=== PATIENT | female | born 1935 | race Caucasian/White ===

== ENCOUNTER 2016-03-25 19:05 | Inpatient (IN) | payer OTHER ==
[~2016-03-25] VITALS: Ht 165.1 cm; Wt 81.3 kg
--- NOTE | ~2016-03-25 | PR ---
[place], [place] PROGRESS NOTE NAME: [facility] #: [id number] UNIT #: [id number] ROOM: 521 DOCTOR: SOUMYA FLORENCE MD BIRTHDATE: [birth year] DOS: SUBJECTIVE: The patient is doing fine without any complaints and patch, she says did not work a whole lot. OBJECTIVE: VITAL SIGNS: Blood pressure is 160/56, pulse of 54, respirations 20, temperature 98.1. LUNGS: Diminished breath sounds. No wheezes, rales or rhonchi heard. HEART: Regular. ABDOMEN: Soft. EXTREMITIES: Without any edema. ASSESSMENT AND PLAN: 1. Encephalopathy, metabolic, possibly from underlying UTI. 2. UTI with 50,000 colonies of E. coli, on cephalosporins. 3. Failure to thrive, adult. The patient to be placed to [facility] for PT/OT. SOUMYA FLORENCE MD CM:PNTRANS 0 47 SOUMYA FLORENCE MD 03/30/161946 interface
--- NOTE | ~2016-03-25 | PR ---
[place], [place] PROGRESS NOTE NAME: SARAH PETERS [facility] #: [id number] UNIT #: [id number] ROOM: 521 DOCTOR: CARMELO JAMES MD BIRTHDATE: [birth year] DOS: 03/27/2016 Patient with urinary tract infection and cystitis growing 50,000 colonies of gram-negative bacilli. Final culture results are still pending. Adult failure to thrive. The patient going for [facility] facility. She changed her mind. She does not want to go to assisted living facility anymore, but she was saying yesterday. The patient with acute over chronic kidney disease with elevation of creatinine. I will keep her on hydration with normal saline and follow her BUN and creatinine. Fall at home and possible syncope. The patient does not remember what happened. The patient has been kept on a residential glazier. Sinus bradycardia without any obvious hypotension. The patient is being monitored. The patient's metoprolol has been stopped and her heart rate still remains between 50 and 60 beats per minute. Mixed hyperlipidemia, being treated with Lipitor. History of paroxysmal atrial fibrillation. The patient remains on digoxin. CARMELO JAMES MD CM:PNTRANS [id number] CARMELO JAMES MD 03/28/16 0731 interface
--- NOTE | ~2016-03-25 | PR ---
[place], [place] PROGRESS NOTE NAME: SARAH PETERS [facility] #: [id number] UNIT #: [id number] ROOM: 521 DOCTOR: SOUMYA FLORENCE MD BIRTHDATE: [birth year] DOS: 03/29/2016 SUBJECTIVE: The patient is doing fine without any complaints. Unfortunately, no precertification has been obtained. OBJECTIVE: VITAL SIGNS: Graphic trend shows that she is afebrile. Blood pressure is 156/51, pulse of 53, respirations 20, and temperature 97.5. LUNGS: Clear. HEART: Regular. ABDOMEN: Soft. EXTREMITIES: Without any edema. ASSESSMENT AND PLAN: 1. Urinary tract infection with 50,000 colonies of Escherichia coli. 2. Metabolic encephalopathy, combination, most likely urinary tract infection related, which is resolved. 3. Adult failure to thrive, awaiting placement to [facility]. SOUMYA FLORENCE MD CM:PNTRANS [phone] SOUMYA FLORENCE MD 03/29/16 2146 interface
--- NOTE | ~2016-03-25 | EKG ---
[place], [place] ELECTROCARDIOGRAM REPORT NAME: SARAH PETERS UNIT #: [id number] ROOM: 521 DOCTOR: CARMELO JAMES MD BIRTHDATE: [birth year] DOS: 03/25/2016 TIME: 21 hours and 29 minutes. EKG shows sinus bradycardia with a heart rate of 53 beats per minute. Normal cardiac axis. Some nonspecific ST-T abnormality, needs clinically correlated. CARMELO JAMES MD CM:EKGRPT:ELECTROCARDIOGRAM REPORT [phone] CARMELO JAMES MD
--- NOTE | ~2016-03-25 | PR ---
[place], [place] PROGRESS NOTE NAME: SARAH PETERS [facility] #: [id number] UNIT #: [id number] ROOM: 521 DOCTOR: SOUMYA FLORENCE MD BIRTHDATE: [birth year] DOS: 03/28/2016 SUBJECTIVE: The patient is doing fine without any complaints this morning. OBJECTIVE: VITAL SIGNS: Graphic trend shows a blood pressure 160/60, pulse of 54, respirations 18, temperature 97.7. LUNGS: Diminished breath sounds, clear. HEART: Regular. ABDOMEN: Obese, soft, nontender. EXTREMITIES: Without any edema. ASSESSMENT AND PLAN: 1. Metabolic encephalopathy, possibly from underlying urinary tract infection, 50,000 gram-negative was noted. No identification is available. Cipro will be added p.o. 2. Fall at home. She was lodged between the dresser and the bed and was unable to get up and apparently slightly confused at the time, she is not exactly sure how she got there, but she has underlying failure to thrive and is going to [facility] when precertification is obtained. 3. Chronic atrial fibrillation with heart rate being on the low side. She is on digoxin. Could add a low dose of beta-blockers, but she is already bradycardic. 4. Benign hypertension. Avoid beta-blockers, again, because of bradycardia, will consider low dose lisinopril, which should help with renal protection also. 5. Diabetes mellitus, controlled. 6. Acute kidney injury, possibly from the urinary tract infection, IV fluids was given, I will discontinue it, and routine labs will be ordered for tomorrow. SOUMYA FLORENCE MD CM:PNTRANS [phone] SOUMYA FLORENCE MD 05/04/16 1433 interface
--- NOTE | ~2016-03-25 | DS ---
[place], [place] DISCHARGE SUMMARY NAME: SARAH PETERS [facility] #: [id number] UNIT #: [id number] ROOM: 521 DOCTOR: SOUMYA FLORENCE MD BIRTHDATE: [birth year] DOS: 03/30/2016 The patient was admitted to the hospital on the the discharge on the to [facility]. HOSPITAL COURSE: This patient is [id number], please refer the H and P dictated by Dr. Caro for further details. She was found wedged between the bed and the dresser was brought in with confusion after admission, she was found to have acute kidney injury. The metformin was discontinued. Pressures are fairly under control. She was also found to be quite bradycardic digoxin and metoprolol were discontinued. She does have history of approximately Afib, but did not have any evidence of rapid ventricular response during this admission. A urine culture was done showed 50,000 colonies of E. coli for which she is sensitive to cephalosporins. Blood cultures showed no bacterial growth. PT/OT was consulted as well as social service for placement and the patient would be a good candidate for placement to [facility] for physical therapy, so the plan today is to discharge her. Her kidney functions have improved slightly. Her GFR was 30 when she arrived and it has come up to 41 at the time of discharge. Most of her home medications have been continued here. The patient has not received the precertification from the insurance company yet and I am hoping to have her today and she can go to [facility] today. DISCHARGE MEDICATIONS: Will be ADA diet 1800, blood sugars daily, losartan 25 daily, lidocaine patch for local application daily, Protonix 40 daily, glyburide 5 b.i.d., atorvastatin 80 daily, levothyroxine 25 mcg daily, Isordil 30 daily, DuoNeb q. 6 hours p.r.n., insulin Lantus 35 units at bedtime, Eliquis 5 b.i.d., [place] 7.5 twice a day p.r.n. The digoxin, metformin, and metoprolol were discontinued. SOUMYA FLORENCE MD CM:DISCHARG [id number] SOUMYA FLORENCE MD 03/30/16 1354 interface
--- NOTE | ~2016-03-25 | WRIGHTHP ---
[place], [place] PATIENT HISTORY AND PHYSICAL EXAM NAME: SARAH PETERS [facility] #: [id number] UNIT #: [id number] ROOM: 521 DOCTOR: CARMELO JAMES MD BIRTHDATE: [birth year] DOS: 03/26/2016 HISTORY OF PRESENT ILLNESS: A 80-year-old female that presented to the Emergency Department wedged between the bed and the dresser and she does not remember how she fell, not sure if she had lost consciousness. The patient lives by herself. The patient says that she was affected by 2 deaths in the family, and one of the deaths was her son. The patient thinks she cannot live by herself safely at home. The patient was evaluated in the Emergency Department, there were no obvious fractures and she was found to have acute kidney injury, encephalopathy, multiple contusions and possible syncope and she was recommended for admission and further management. After admission, she looks alert, comfortable and in no visible distress, no shortness of breath, no chest pain, no GI or urinary symptoms. REVIEW OF SYSTEMS: LUNGS: No shortness of breath or wheezing. GASTROINTESTINAL: No nausea, vomiting, diarrhea, constipation. CARDIOVASCULAR: No chest pain, no palpitations. SOCIAL HISTORY: The patient lives by herself. Denies smoking cigarettes, alcohol and drug abuse. FAMILY HISTORY: Noncontributory. HOME MEDICATIONS: Lipitor, digoxin, Imdur, Protonix, metformin, levothyroxine, glyburide, apixaban, metoprolol, DuoNebs, Vicodin. ALLERGIES: No known drug allergies. PHYSICAL EXAMINATION: GENERAL: Alert and oriented x 3, in no visible distress. Generalized weakness. VITAL SIGNS: Blood pressure 151/44, heart rate of 60 beats per minute, breathing 18 times per minute, temperature 98.2 degrees Fahrenheit. HEENT AND NECK: Extraocular movements are intact. Sclerae are anicteric. Oral mucosa is moist and clean. No obvious facial weakness. Neck is supple without any lymphadenopathy. No thyromegaly. No JVD. No carotid arterial bruits. LUNGS: Clear to auscultation. No wheezing. No rhonchi. CARDIOVASCULAR SYSTEM: Heart rate is regular in rate and rhythm. S1 and S2 normally audible. No significant murmur or any other abnormal cardiac sounds. ABDOMEN: Soft, nontender. No obvious organomegaly. Bowel sounds are present. No obvious herniation. EXTREMITIES: Without significant cyanosis or edema. Warm to touch. CENTRAL NERVOUS SYSTEM: Alert and oriented x 3. Cranial nerves II-XII are intact. Speech is normal. The patient is able to move all extremities. Normal muscle strength. Deep tendon reflexes are equal on both sides. Plantars were downgoing. IMPRESSION: 1. The patient living by herself, old age with adult failure to thrive. We will try to get her to an assisted living facility. [place], [place] PATIENT HISTORY AND PHYSICAL EXAM [facility]: [facility] [id number] UN[facility] #: [id number] ROOM: 521 DOCTOR: CARMELO JAMES MD BIRTHDATE: [birth year] 2. Elevation of creatinine to 1.7 as compared to in the past, the creatinine was at 1.2 in 2011. The patient with acute over chronic kidney disease. 3. Fall at home, possible syncope. The patient does not remember what happened. The patient is being monitored on a parts identification technician and does have sinus bradycardia. No chest pain, no shortness of breath. No GI or urinary symptoms. 4. Sinus bradycardia without any obvious hypotension, I will adjust her treatment. The patient had heart rate as low as 38 beats per minute on the parts identification technician. I will stop her metoprolol and continue digoxin for paroxysmal atrial fibrillation. 5. The patient has history of paroxysmal atrial fibrillation, presently in sinus rhythm. We will continue digoxin. 4. Type 2 diabetes mellitus. Monitor blood sugars. Continue glyburide and Levemir insulin. 5. Mixed hyperlipidemia, treated with Lipitor, which is being continued. 6. Renal insufficiency. I will stop her metformin because of the increased risk of lactic acidosis. CARMELO JAMES MD CM:HISPHYS:PATIENT HISTORY AND PHYSICAL EXAMINATION 58 [phone] CARMELO JAMES MD 03/26/161942 interface
[~2016-03-25 19:05] MED LIST: ASPIRIN ADULT L81 M1 PO; ASPIRIN CHILDRE81 MG PO; BACTRIM DS 8001 TA1 PO; CEFUROXIME AXE250 MG PO; CIPRO250 MG PO; CIPROFLOXACIN500 MG PO; COUMADIN5 MG PO; COUMADIN7.5 M1 PO; DIABETA5 MG PO; DUONEB 3 MG/3 ML3 M1 INH; ELIQUIS5 M1 PO; FEOSOL300 MG PO; FLEXERIL10 MG PO; FLOMAX0.4 MG PO; GLUCOPHAGE1000 MG PO; GLUCOPHAGE500 MG PO; GLYBURIDE2.5 MG PO; HYDROCODONE BIT1 T11 PO; ISOSORBIDE DINI30 MG PO; LANOXIN0.125 MG PO; LANTUS100 U/ML SC; LANTUS100 U/ML SQ; LIPITOR10 MG PO; LIPITOR20 MG PO; LIPITOR80 MG PO; LOPRESSOR25 MG PO; MACROBID100 M1 PO; METFORMIN500 MG PO; METOPROLOL SR25 MG PO; MOTRIN600 MG PO; NEBULIZER; NORCO 325 MG-51 TAB PO; NORCO 5-325 TA1 EACH PO; NORCO 7.5-3251 EACH PO; PERCOCET 325 MG1 TA2 PO; PROTONIX40 MG PO; PYRIDIUM200 MG PO; SYNTHROID0.05 MG PO; SYNTHROID25 MCG PO; Synthroid,Levo25 MCG PO; VOLTAREN TP; ZOFRAN ODT4 MG SL
[2016-03-25 19:17] VITALS: BP 149/65
[2016-03-25 21:26] LABS: BASO % 0.1 % (0.0-1.0); EOS # 0.1 10*3/uL (0.0-0.4); EOS % 1.1 % (1.0-4.0); HEMATOCRIT 29.7 % (37.0-47.0); HEMOGLOBIN 9.3 g/dl (12.0-16.0); LYMPH # 2.5 10*3/uL (1.3-4.4); LYMPH % 31.3 % (27.0-41.0); MEAN CELL VOLUME 97.1 fl (81.0-99.0); MEAN CORPUSCULAR HGB 30.4 pg (27.0-31.0); MEAN CORPUSCULAR HGB CONC 31.3 g/dl (33.0-37.0); MEAN PLATELET VOLUME 11.6 fl (9.6-12.3); MONO # 0.4 10*3/uL (0.1-1.0); MONO % 4.7 % (3.0-9.0); NEUT # 4.9 10*3/uL (2.3-7.9); NEUT % 62.5 % (47.0-73.0); PLATELET COUNT AUTOMATED 229 10*3/uL (130-400); RED BLOOD COUNT 3.06 10*6/uL (4.10-5.10); RED CELL DISTRI WIDTH 14.3 % (0-14.5); WHITE BLOOD COUNT 7.9 10*3/uL (4.8-10.8)
[2016-03-25 21:42] LABS: ALBUMIN 3.5 gm/dl (3.1-4.5); BILIRUBIN, TOTAL 0.3 mg/dl (0.2-1.0); POTASSIUM 4.4 mmol/L (3.5-5.1); TOTAL PROTEIN 8.1 gm/dL (6.4-8.2)
[2016-03-25 21:44] LABS: CKMB 2.6 ng/ml (0.5-3.6)
[2016-03-25 22:05] LABS: BILIRUBIN NEGATIVE (NEGATIVE); BLOOD TRACE-INTACT (NEGATIVE); CLARITY SL CLOUDY (CLEAR); COLOR YELLOW (YELLOW); GLUCOSE NEGATIVE (NEGATIVE); KETONE NEGATIVE (NEGATIVE); LEUKO ESTERASE TRACE (NEGATIVE); NITRITE NEGATIVE (NEGATIVE); PROTEIN 1+ (NEGATIVE); SPECIFIC GRAVITY 1.025 (1.005-1.030); UROBILINOGEN 0.2 E.U./dl (0.2-1.0)
[2016-03-25 22:12] LABS: BACTERIA 4+; WBC 16-20 wbc/hpf (0-5)
[2016-03-25 22:13] LABS: MUCOUS TRACE; URINE REFLEX COMMENT YES (NO)
[2016-03-25 22:55] VITALS: BP 143/48
[2016-03-26] VITALS: BP 156/47
[2016-03-26 06:24] LABS: POTASSIUM 4.1 mmol/L (3.5-5.1)
[2016-03-26 08:00] VITALS: BP 156/56
[2016-03-26 12:00] VITALS: BP 145/76
[2016-03-26 16:00] VITALS: BP 151/44
[2016-03-26 20:00] VITALS: BP 154/42
[2016-03-27] VITALS: BP 159/42
[2016-03-27 08:00] VITALS: BP 158/66
[2016-03-27 12:00] VITALS: BP 146/76
[2016-03-27 16:00] VITALS: BP 173/44
[2016-03-27 20:00] VITALS: BP 172/49
[2016-03-28] VITALS: BP 160/60
[2016-03-28 08:00] VITALS: BP 164/62
[2016-03-28 12:00] VITALS: BP 140/70
[2016-03-28 16:00] VITALS: BP 157/61
[2016-03-28 20:00] VITALS: BP 121/61
[2016-03-29] VITALS: BP 156/51
[2016-03-29 08:00] VITALS: BP 150/50
[2016-03-29 09:18] LABS: BASO % 0.2 % (0.0-1.0); EOS # 0.2 10*3/uL (0.0-0.4); EOS % 3.2 % (1.0-4.0); HEMATOCRIT 26.6 % (37.0-47.0); HEMOGLOBIN 8.2 g/dl (12.0-16.0); LYMPH # 2.2 10*3/uL (1.3-4.4); LYMPH % 35.4 % (27.0-41.0); MEAN CELL VOLUME 97.1 fl (81.0-99.0); MEAN CORPUSCULAR HGB 29.9 pg (27.0-31.0); MEAN CORPUSCULAR HGB CONC 30.8 g/dl (33.0-37.0); MEAN PLATELET VOLUME 11.9 fl (9.6-12.3); MONO # 0.3 10*3/uL (0.1-1.0); MONO % 5.2 % (3.0-9.0); NEUT # 3.5 10*3/uL (2.3-7.9); NEUT % 55.7 % (47.0-73.0); PLATELET COUNT AUTOMATED 213 10*3/uL (130-400); RED BLOOD COUNT 2.74 10*6/uL (4.10-5.10); RED CELL DISTRI WIDTH 14.4 % (0-14.5); WHITE BLOOD COUNT 6.2 10*3/uL (4.8-10.8)
[2016-03-29 09:25] LABS: POTASSIUM 4.5 mmol/L (3.5-5.1)
[2016-03-29 12:00] VITALS: BP 166/89
[2016-03-29 16:00] VITALS: BP 165/62
[2016-03-29 20:00] VITALS: BP 160/68
[2016-03-30] VITALS: BP 160/56
[2016-03-30] MEDS ORDERED: LOSARTAN POTASS25 M1 PO (07:22)
[2016-03-30] MEDS ORDERED: NORCO 7.5-3251 EACH PO (07:22)
[2016-03-30] MEDS ORDERED: LIDODERM 5% PATC1 EA T (07:22)
[2016-03-30 08:00] VITALS: BP 170/66
[2016-03-30 12:00] VITALS: BP 150/86
[2016-03-30 16:00] VITALS: BP 149/56
[2016-03-30 20:00] VITALS: BP 155/62
[2016-03-31] VITALS: BP 160/62
[2016-03-31 08:00] VITALS: BP 156/60
[2016-03-31 12:00] VITALS: BP 146/61
[2016-03-31 16:00] VITALS: BP 146/69
[2016-05-18] MEDS ORDERED: ATIVAN0.5 MG PO (22:22)
== END 2016-03-31 18:40 | disposition other institution (70) | DRG 682 ==
LOC: ED 19:05 → 5E 22:24 → EDHOLD 22:24 → 5E 23:25
PROVIDERS: Internal Medicine; Nurse Practitioner Family
DX: N17.0 Acute kidney failure with tubular necrosis (principal); G93.41 Metabolic encephalopathy; E11.22 Type 2 diabetes mellitus with diabetic chronic kidney disease; R00.1 Bradycardia, unspecified; I48.0 Paroxysmal atrial fibrillation; T50.995A Adverse effect of other drugs, medicaments and biological substances, initial encounter; R62.7 Adult failure to thrive; N18.9 Chronic kidney disease, unspecified; E78.2 Mixed hyperlipidemia; B96.20 Unspecified Escherichia coli [E. coli] as the cause of diseases classified elsewhere; J44.9 Chronic obstructive pulmonary disease, unspecified; E03.9 Hypothyroidism, unspecified; N30.90 Cystitis, unspecified without hematuria; I48.2 Chronic atrial fibrillation; I12.9 Hypertensive chronic kidney disease with stage 1 through stage 4 chronic kidney disease, or unspecified chronic kidney disease; Z96.1 Presence of intraocular lens; Z79.899 Other long term (current) drug therapy; Z79.84 Long term (current) use of oral hypoglycemic drugs; Z87.440 Personal history of urinary (tract) infections; Z90.49 Acquired absence of other specified parts of digestive tract; Z98.49 Cataract extraction status, unspecified eye; Z87.891 Personal history of nicotine dependence; Z81.1 Family history of alcohol abuse and dependence; Z82.49 Family history of ischemic heart disease and other diseases of the circulatory system; Z80.9 Family history of malignant neoplasm, unspecified; Z91.81 History of falling

== ENCOUNTER 2016-05-26 16:41 | Inpatient (IN) | payer OTHER ==
[~2016-05-26] VITALS: Ht 165.1 cm; Wt 83.5 kg
--- NOTE | ~2016-05-26 | PR ---
[place], [place] PROGRESS NOTE NAME: SARAH PETERS [facility] #: [id number] UNIT #: [id number] ROOM: 426 DOCTOR: SOUMYA FLORENCE MD BIRTHDATE: [birth year] DOS: 05/29/2016 SUBJECTIVE: The patient states that she is feeling better, does not have any cough or shortness of breath this morning. She has not had any active bleeding. OBJECTIVE: VITAL SIGNS: Blood pressure is 142/47, pulse of 50, respirations 18, temperature 98.3. LUNGS: Diminished breath sounds, clear this morning. No wheezes heard. HEART: Irregular. ABDOMEN: Obese. EXTREMITIES: Trace edema noted on the feet. LABORATORY DATA: Echocardiogram showed moderate MR, moderate TR, moderate pulmonary hypertension with normal LV function and concentric LVH. No other labs available. ASSESSMENT AND PLAN: 1. Precipitous drop in hematocrit, most likely from perforations noted from the anastomotic clips as well as multiple colonic polyps, the plan is to go back for a colonoscopy today and removal of the clips and polypectomy discussed with Dr. Alvarez. 2. Chronic atrial fibrillation on long-term use of anticoagulant. Eliquis on hold because of the pending procedures. 3. Right upper lobe pneumonia on IV antibiotics. The patient is doing better with the breathing treatments. 4. Adult failure to thrive. The patient is to go to [facility] precertification has been started. SOUMYA FLORENCE MD CM:PNTRANS [phone] SOUMYA FLORENCE MD 05/29/16 0752 interface
--- NOTE | ~2016-05-26 | WRIGHTHP ---
[place], [place] PATIENT HISTORY AND PHYSICAL EXAM NAME: SARAH PETERS [facility] #: [id number] UNIT #: [id number] ROOM: 426 DOCTOR: SOUMYA FLORENCE MD BIRTHDATE: [birth year] DOS: 05/26/2016 HISTORY OF PRESENT ILLNESS: The patient is 81-year-old. The patient was brought to the Emergency Room yesterday with complaints that she is not feeling good, that she has cough and cold-like symptoms. She was evaluated in the ER. During the part of routine blood work, the patient had H and H drawn, which was quite low at 6 and also she had right upper lobe pneumonia, and the patient was admitted. This morning, the patient is tired, but complains of quite a lot of pain in the back. Denies having any nausea, any emesis, any fever or chills. PAST MEDICAL HISTORY: Significant for; 1. Last hospitalization in 03/2015 with adult failure to thrive after a fall and acute kidney injury. 2. Type 2 diabetes mellitus, insulin-dependent. 3. History of CA of the colon, status post colectomy in 2014. 4. Hypothyroidism. 5. Mixed hyperlipidemia. 6. Benign hypertension. 7. Chronic low back pain. MEDICATIONS: She is on are on Eliquis 5 mg twice daily, DuoNeb b.i.d., atorvastatin 80 daily, glyburide 5 b.i.d., hydrocodone 1 tablet twice a day, Isordil 30 daily, levothyroxine 25 mcg daily, lorazepam 0.5 q.6 hours, Protonix 40 daily, insulin Lantus 42 units subcutaneous at bedtime. SOCIAL HISTORY: Nonsmoker, does not use any alcohol. PHYSICAL EXAMINATION: GENERAL: The patient does complain of a lot of pain, she points in the infrascapular area on the left side. VITAL SIGNS: Blood pressure is 160/54, pulse of 88, respirations 20, temperature 98.0. LUNGS: Diminished breath sounds. HEART: Irregular. ABDOMEN: Obese, soft, nontender. EXTREMITIES: Without any edema. ASSESSMENT AND PLAN: 1. The right upper lobe pneumonia, possible Gram-negative. The patient is placed on IV Rocephin and Levaquin. 2. Chronic atrial fibrillation on Eliquis. We will hold off on Eliquis today since she is going for colonoscopy. 3. Anemia, microcytic. The patient had further evaluation today. Hemoccult was positive. Colonoscopy scheduled by Dr. Alvarez. 4. Chronic low-back pain. Since she is n.p.o., we will give her 1 dose of Dilaudid before she goes. [place], [place] PATIENT HISTORY AND PHYSICAL EXAM NAME: SARAH PETERS UNIT #: [id number] ROOM: 426 DOCTOR: SOUMYA FLORENCE MD BIRTHDATE: [birth year] SOUMYA FLORENCE MD CM:HISPHYS:PATIENT HISTORY AND PHYSICAL EXAMINATION 8 SOUMYA FLORENCE MD 05/27/16919 interface
--- NOTE | ~2016-05-26 | PR ---
[place], [place] PROGRESS NOTE NAME: SARAH PETERS [facility] #: [id number] UNIT #: [id number] ROOM: 426 DOCTOR: SOUMYA FLORENCE MD BIRTHDATE: [birth year] DOS: 05/30/2016 SUBJECTIVE: The patient is doing fine without any complaints. Denies any chest pains, palpitations or shortness of breath. OBJECTIVE: VITAL SIGNS: Graphic trend shows a pressure of 152/76, pulse is 76, respirations 18, temperature 97.7. LUNGS: Diminished breath sounds. No wheezes, rales or rhonchi heard. HEART: Regular. ABDOMEN: Obese, soft. EXTREMITIES: Without any edema. ASSESSMENT AND PLAN: 1. Precipitous drop in hematocrit. This has improved. The H and H up to 9.3 now. 2. Status post colonoscopy with polypectomy as well as removal of the clips. Dr. Alvarez has recommended that the patient stay off anticoagulants for 72 hours. 3. Chronic atrial fibrillation. Again, because of the significant bleed. The Eliquis will be held and then we will restart it after 3 days. 4. Chronic back pain, controlled. Prescription for pain medications given for [facility]. 5. Adult failure to thrive. The patient to go to the [facility] today for PT, OT. SOUMYA FLORENCE MD CM:PNTRANS [phone] SOUMYA FLORENCE MD 05/30/16 1023 interface
--- NOTE | ~2016-05-26 | PR ---
[place], [place] PROGRESS NOTE NAME: SARAH PETERS [facility] #: [id number] UNIT #: [id number] ROOM: 426 DOCTOR: MU VILLAVICENCIO MD BIRTHDATE: [birth year] DOS: 05/29/2016 SUBJECTIVE: The patient was seen at her bedside today 05/29/2016 for followup of paroxysmal atrial fibrillation and anticoagulation. She is an 81-year-old woman who has a history of paroxysmal atrial fibrillation, type 2 diabetes mellitus, hypertension, and hyperlipidemia, as well as colon cancer. She did have a colectomy in 2014. She came into the hospital on this occasion with fatigue and a cough. She was found to have a hemoglobin of 6.5, which was treated with packed cells. Her long-term Eliquis was withheld and her hemoglobin came up to 10. She did undergo colonoscopy and was found to have a polyp as well as possible bleeding from her colectomy anastomotic site. It is my understanding that further surgery to do a polypectomy and repair of the bleeding at the anastomosis is contemplated. In the meantime, she is being held off of oral anticoagulants. She denies any chest pain or palpitations. She denies lightheadedness or syncope. She denies peripheral edema. PHYSICAL EXAMINATION: VITAL SIGNS: Today, her pulse is 64 and regular, blood pressure is 146/80. She is afebrile. NECK: Supple. She has no jugular distention or hepatojugular reflux. Carotids are full. LUNGS: Respirations are unlabored. CHEST: Clear. HEART: Has a regular rhythm with a fourth heart sound, but no third heart sound or murmur. ABDOMEN: Obese, but otherwise benign. EXTREMITIES: Showed no edema. LABORATORY DATA: I reviewed her monitor strips. She is remaining in sinus rhythm with an occasional PAC, but no SVT or atrial fibrillation is seen. IMPRESSION: 1. Severe anemia, probably due to lower gastrointestinal bleeding. 2. Right upper lobe pneumonia. 3. History of paroxysmal atrial fibrillation. The patient has been in sinus rhythm, her entire hospitalization. She was on Eliquis for stroke prophylaxis, but the drug is now on hold because of her bleeding problems. 4. No history of coronary artery disease, but the patient does have an abnormal electrocardiogram suggesting a previous anteroseptal myocardial infarction. 5. Elevated troponin level on admission. The pattern of elevation does not suggest an acute coronary event and most likely is due to demand ischemia with her severe anemia complicated by renal insufficiency. 6. Echocardiogram 05/28/2016 with a technically difficult study. Left ventricle was normal in size with moderate concentric left ventricular hypertrophy, normal segmental wall motion with ejection fraction 60%, moderate mitral insufficiency and moderate tricuspid insufficiency with moderately [place], [place] PROGRESS NOTE NAME: SARAH PETERS [facility] #: [id number] UNIT #: [id number] ROOM: 426 DOCTOR: MU VILLAVICENCIO MD BIRTHDATE: [birth year] elevated right ventricular systolic pressures. PLAN: We will continue to withhold her direct oral anticoagulant for the time being; however, it is my intent that she should be put back on Eliquis as soon as it is safe to do so. Happily, she is remaining in sinus rhythm and this should offer some protection. We will continue to follow her in the perioperative period and we thank Dr. Beasley for asking our advice regarding her care. MU VILLAVICENCIO MD CM:PNTRANS 1351 [id number] MU VILLAVICENCIO MD 05/30/16 0019 interface
--- NOTE | ~2016-05-26 | O ---
[place], [place] OPERATIVE NOTE NAME: SARAH PETERS UNIT #: [id number] ROOM: 426 DOCTOR: CORINE PAULINO MD BIRTHDATE: [birth year] DOS: 05/29/2016 HISTORY OF PRESENT ILLNESS: An 81-year-old patient was presented with recurrent anemia, transfusion, drop in H and H, status post history of right colonic carcinoma, status post right hemicolectomy. The patient is known to have multiple penetrated metallic sutures at the site penetrated as well as polypoid lesions. PROCEDURE: Today's procedure part of investigation is colonoscopy and polypectomy of the anastomotic site and removal of penetrated metallic sutures. PREMEDICATION: Versed and Diprivan. SCOPE: Olympus forward viewing colonoscope 10L video. REPORT: After putting the patient in the left lateral position and after application of lubricant to the scope, the scope was introduced. Thereafter, under direct visualization, advanced through the length of colon without difficulty. Anastomotic site at the hepatic flexure identified. Multiple penetrated metallic sutures identified. Selectively each one was removed. Snare polypectomy of a polypoid lesion at the anastomotic site was undertaken. The patient extubated, tolerated the procedure well. IMPRESSION: Status post right hemicolectomy history for colonic carcinoma, status post penetrated metallic sutures multiple sites at the anastomotic site, status post removal. Also, status post snare polypectomy of polypoid lesion at the anastomotic site. PLAN AND DISCUSSION: Strongly suggesting to abstain from anticoagulation for at least 72 hours on this patient. However, we are going to go ahead and proceed with feeding and clinical reassessment. Thank you again for your kind referral. [place], [place] OPERATIVE NOTE NAME: CAROLINE PETERSGena Rodriguez UNIT #: [id number] ROOM: 426 DOCTOR: CORINE PAULINO MD BIRTHDATE: [birth year] CORINE PAULINO MD CM:OPRECORD:OPERATIVE NOTE 1512 [id number] CORINE PAULINO MD 05/29/16 1539 interface
--- NOTE | ~2016-05-26 | CON ---
[place], [place] REPORT OF CONSULTATION [id number] UNIT #: [id number] ROOM: 426 DOCTOR: CORINE PAULINO MD BIRTHDATE: [birth year] DOS: HISTORY OF PRESENT ILLNESS: The patient is 81 years old who has presented with chief complaint of abdominal pain, epigastric distress and edema, as well as severe anemia of hemoglobin of 6, hematocrit of 21. The patient has been admitted for definitive evaluation, assessment for transfusion and GI findings. Comprehensive metabolic panel, electrolytes, glucose of 300, BUN and creatinine 23 and 1.4. Electrolytes balanced, magnesium 2.2. Myoglobin 75. Liver function test normal. Reticulocyte count was 1.2, total iron binding was assessed 420 and iron level 17. Transfusion improved H and H to 9 and 29. Comprehensive metabolic panel, liver function tests, and electrolyte balanced. PAST MEDICAL HISTORY: Associated with history of hypercholesterolemia, hypothyroidism, obesity, diabetes mellitus, colon CA history, as well as severe anemia. PAST SURGICAL HISTORY: Cataracts, cholecystectomy, cystoscopies. SOCIAL HISTORY: Nonsmoker, nonalcohol consumer at the present time, she used to be a smoker, was quit. FAMILY HISTORY: Noncontributory. REVIEW OF SYSTEMS: HEENT: Denies double vision, blurred vision. RESPIRATORY: Admits some shortness of breath. CARDIOVASCULAR: Denies chest pain. DIGESTIVE SYSTEM: Nonspecific abdominal pain. No hematemesis, no hematochezia. History of colonic CA. PHYSICAL EXAMINATION: VITAL SIGNS: Stable, nontoxically ill. HEENT: Head; normocephalic, nontraumatic. Mouth and buccal mucosa benign. NECK: Supple, no thyromegaly, no cervical lymphadenopathy. CHEST: Symmetric anatomy, decreased air entry, patten of COPD. HEART: Normal sinus rhythm. Grade 2/6 systolic murmur at left sternal border. ABDOMEN: Obese, soft. No hepato-organomegaly. Bowel sounds present. No pulsatile mass. No rebound. EXTREMITIES: There is 2+ pedal edema, more so on the right than left. Dorsalis pedis and radial pulses intact. NEUROLOGIC: Alert, oriented to time, place, person. IMPRESSION: Severe anemia, status post transfusion, history of colonic cancer, history of hypothyroidism, history of anxiety, history of atrial fibrillation, history of hypercholesterolemia, gastritis, transfusion. PLAN AND DISCUSSION: EGD and colonoscopy today and reassessment. Thank you very much indeed for your kind referral. [place], [place] REPORT OF CONSULTATION NAME: SARAH PETERS UNIT #: [id number] ROOM: 426 DOCTOR: CORINE PAULINO MD BIRTHDATE: [birth year] CORINE PAULINO MD CM:CONSTR:REPORT OF CONSULTATION 1543 05/28/16 0027 interface
--- NOTE | ~2016-05-26 | O ---
[place], [place] OPERATIVE NOTE NAME: SARAH PETERS UNIT #: [id number] ROOM: 426 DOCTOR: CORINE PAULINO MD BIRTHDATE: [birth year] DOS: 05/27/2016 GASTROENDOSCOPIC REPORT INDICATIONS: The patient has presented with chief complaint of guaiac positivity, anemia, undergoing investigation. Status post transfusion. Status post colonic CA, status post resection. PROCEDURE: Today's procedure part of investigation is colonoscopy. PREMEDICATION: Versed and Diprivan. SCOPE: Olympus forward-viewing colonoscope 10L video. REPORT: After putting the patient in the left lateral position and after application of lubricant to the scope, the scope was introduced. Thereafter, under direct visualization, I advanced through the length of colon without difficulty to the right colon. The anastomotic site was identified. At the anastomotic site, a small sessile polypoid lesion and proximal to the anastomosis about 5 cm proximally at 6 o'clock rotated to the right, is another sessile polypoid lesion. Anastomotic site shows multiple metallic clip penetrations, which is status post surgical anastomosis. Erosions and agitation at site was noticed. The patient was extubated. No biopsy obtained due to the fact the patient has been on Eliquis. The patient tolerated the procedure well. IMPRESSION: Status post right hemicolectomy, status post anastomosis for colonic carcinoma, penetrated metallic clips and presence of multiple polyps at the anastomotic area. PLAN AND DISCUSSION: We are going to look for opportunity where she can be off the Eliquis for several days before and after, so that we can remove the metallic sutures from anastomotic site and perform polypectomies on the residual polyps in right colon. I thank you very much indeed for your kind referral. Sincerely, [place], [place] OPERATIVE NOTE NAME: SARAH PETERS UNIT #: [id number] ROOM: 426 DOCTOR: CORINE PAULINO MD BIRTHDATE: [birth year] CORINE PAULINO MD CM:OPRECORD:OPERATIVE NOTE 1724 [id number] CORINE PAULINO MD 05/28/16 0728 interface
--- NOTE | ~2016-05-26 | CON ---
[place], [place] REPORT OF CONSULTATION NAME: SARAH PETERS [facility] #: [id number] UNIT #: [id number] ROOM: 426 DOCTOR: MU VILLAVICENCIO MD BIRTHDATE: [birth year] DOS: 05/27/2016 The patient was seen at her bedside today, 05/27/2016 for evaluation of an abnormal troponin level. CHIEF COMPLAINT: Fatigue, severe anemia. HISTORY OF PRESENT ILLNESS: The patient is an 81-year-old woman who has a history of paroxysmal atrial fibrillation, diabetes, hypertension and hyperlipidemia. She came into the hospital with a feeling of being tired and weak with a cough for the last week. Her hemoglobin was noted to be very low at 6.5. She was given 2 units of packed cells and admitted to the hospital. On admission, her troponin level was mildly elevated at 0.056 and therefore, we were asked to comment as to whether or not this represents an acute cardiac event as well. The patient denies any chest pain. She was dyspneic and fatigued, but denied palpitations, lightheadedness or syncope. PAST MEDICAL HISTORY: Includes, 1. Paroxysmal atrial fibrillation. The patient is currently in sinus rhythm. 2. Type 2 diabetes mellitus, managed with insulin. 3. History of cancer of the colon, status post colectomy in 2014. 4. History of hypothyroidism, on replacement. 5. History of mixed hyperlipidemia. 6. History of hypertension. MEDICATIONS: Prior to admission included DuoNeb by inhaler twice a day, Eliquis 5 mg b.i.d., atorvastatin 80 mg at bedtime, [place] 7.5/325 b.i.d., isosorbide dinitrate 30 mg daily, levothyroxine 25 mcg daily, lorazepam 0.5 mg q. 6 hours p.r.n., pantoprazole 40 mg daily, Lantus insulin 42 units subQ at bedtime. ALLERGIES: The patient has no known drug allergies. FAMILY HISTORY: The patient's father of alcohol abuse. Her mother at age 60 from a heart attack. REVIEW OF SYSTEMS: The patient denies diplopia or loss of vision. She denies lightheadedness or syncope, although she has been weak lately. She denies fevers, chills, sweats or recent weight change. She denies nausea or vomiting. She has had a cough and has been breathless lately. She denies hemoptysis or hematemesis. She denies any bleeding from her stools. She denies any hematuria. She has not had any significant peripheral edema. She denies heat or cold intolerance and denies polyuria or polydipsia. The remainder of review of systems is negative except as noted above. SOCIAL HISTORY: The patient is a former smoker, but quit 3 years ago. She does not consume significant amounts of alcohol. PHYSICAL EXAMINATION: [place], [place] REPORT OF CONSULTATION NAME: SARAH PETERS UNIT #: [id number] ROOM: 426 DOCTOR: MU VILLAVICENCIO MD BIRTHDATE: [birth year] GENERAL: The patient is a well-nourished white female who is awake, alert and oriented. VITAL SIGNS: Pulse is 69 and regular, blood pressure is 134/60. She is afebrile. She weighs 83.5 kilograms with a body mass index of 30.6. HEENT: Normocephalic, atraumatic. Extraocular muscles are intact. Sclerae are clear. Pupils are equal, round and reactive to light. The oral mucosa is moist. Tongue is midline. NECK: Supple. She has no jugular distention. Carotids are full. I heard no bruits. She had no neck or supraclavicular masses. No thyromegaly. RESPIRATORY: Respirations are unlabored. Her chest is clear to auscultation and percussion. She has no presacral edema or chest wall tenderness. CARDIOVASCULAR: Her heart has a regular rhythm with an S4 gallop. I heard no S3 or murmur. The PMI was not displaced. She had no precordial heave, lift or thrill. ABDOMEN: Soft and normoactive without masses, organomegaly or bruits. EXTREMITIES: Showed no edema. Peripheral pulses are diminished in the feet bilaterally. LABORATORY DATA: I reviewed her electrocardiogram, which shows sinus rhythm with a leftward axis. She has poor precordial R-wave progression, but no acute ST elevation or depression. Chest x-ray does show a right upper lobe bronchopneumonia. White count was 8400, hemoglobin after transfusion was 9.4, platelet count 279,000. Sodium 136, potassium 4.6, chloride 100, CO2 24, BUN 24, creatinine 1.61. Troponin levels were 0.056 upon admission and 0.048 on repeat. IMPRESSION: 1. Severe anemia, evaluation in progress. 2. Right upper lobe pneumonia. 3. History of paroxysmal atrial fibrillation. The patient is currently in sinus rhythm. She is on Eliquis for stroke prophylaxis but the drug is on hold because of her apparent bleeding problems. 4. coronary artery disease; however, her EKG is abnormal, suggesting the possibility of a previous anteroseptal myocardial infarction. 5. Elevated troponin level. The pattern of the troponin elevation does not suggest an acute coronary event. Most likely it is due to demand ischemia, complicated by renal insufficiency. PLAN: We will obtain an echocardiogram to assess left ventricular function and wall motion. For now, direct oral anticoagulants and antiplatelet agents are on hold. Hopefully, these can be resumed in the near future, but that will certainly depend upon the results of her surgical evaluation. We will follow the patient along with her other physicians and we thank Dr. Beasley for asking our advice regarding her care. [place], [place] REPORT OF CONSULTATION NAME: SARAH PETERS UNIT #: [id number] ROOM: 426 DOCTOR: MU VILLAVICENCIO MD BIRTHDATE: [birth year] MU VILLAVICENCIO MD CM:CONSTR:REPORT OF CONSULTATION 185 05/28/16 0216 interface
--- NOTE | ~2016-05-26 | O ---
[place], [place] OPERATIVE NOTE NAME: SARAH PETERS [facility] #: [id number] UNIT #: [id number] ROOM: 426 DOCTOR: CORINE PAULINO MD BIRTHDATE: [birth year] DOS: 05/27/2016 GASTROENDOSCOPIC REPORT INDICATIONS: 81 year old patient who has presented with chief complaint of history of colonic carcinoma, status post right hemicolectomy, anastomosis. Gastrointestinal bleed, anemia, hemoglobin of 6. The patient has been on Eliquis. PROCEDURE: Today's procedure part of investigation is panendoscopy and colonoscopy. PREMEDICATION: Versed and Diprivan. SCOPE: Olympus forward-viewing gastroscope Q10 video. REPORT: After putting the patient in the left lateral position and after application of lubricant to the scope, the scope was introduced. Thereafter, under direct visualization, I advanced through the length of esophagus without difficulty. Hiatal hernia noticed. Gastritis seen. Duodenal bulb, second and third part within normal limits. No biopsies obtained. This is due to the fact that the patient has received a fresh dose of Eliquis. The patient extubated, tolerated the procedure well. IMPRESSION: Hiatal hernia, gastritis. PLAN AND DISCUSSION: We are going to proceed with colonoscopy. CORINE PAULINO MD CM:OPRECORD:OPERATIVE NOTE 1724 1846 CORINE PAULINO MD 05/28/16 0727 interface
--- NOTE | ~2016-05-26 | PR ---
[place], [place] PROGRESS NOTE NAME: SARAH PETERS [facility] #: [id number] UNIT #: [id number] ROOM: 426 DOCTOR: SOUMYA FLORENCE MD BIRTHDATE: [birth year] DOS: SUBJECTIVE: The patient is having some shortness of breath this morning with some increased audible wheezing. The patient underwent colonoscopy yesterday. Anastomotic clips were found to be perforated with multiple polyps. Dr. Alvarez plans to remove the clips and polypectomy once she is off the Eliquis for 2 days. She denies having any abdominal pain this morning. OBJECTIVE: VITAL SIGNS: Blood pressure is 136/73, pulse of 71, respirations 18, temperature 98.2. LUNGS: Diminished breath sounds. Scattered wheezes heard this morning. HEART: Irregular, heart rate controlled. ABDOMEN: Obese, soft. EXTREMITIES: Without any edema. LABORATORY DATA: White blood cell count is 10.8, hemoglobin 8.9, hematocrit 28.8, platelets 270. Urine culture shows no bacterial growth. BMP: Glucose 75, BUN 24, creatinine 1.43. Electrolytes: Sodium 141, potassium 3.3, chloride 104, bicarbonate 24. ASSESSMENT AND PLAN: 1. The patient with right upper lobe pneumonia on IV antibiotics with some bronchospasm. The patient is advised to start her breathing treatments. 2. Chronic atrial fibrillation on long-term use of anticoagulants is on because of her recent heme positive stools and significant drop in hematocrit. The hemoglobin did improve with 2 units of blood transfusion and is slowly sliding down again, we will continue to monitor. I discussed with Dr. Alvarez, he plans to take her for a repeat colonoscopy tomorrow. 3. Type 2 diabetes mellitus. Blood sugar readings were 228 this morning, she is on medications with oral insulin. SOUMYA FLORENCE MD CM:PNTRANS 3 4 SOUMYA FLORENCE MD 05/28/16954 interface
--- NOTE | ~2016-05-26 | DS ---
[place], [place] DISCHARGE SUMMARY NAME: SARAH PETERS [facility] #: [id number] UNIT #: [id number] ROOM: 426 DOCTOR: SOUMYA FLORENCE MD BIRTHDATE: [birth year] DOS: 05/30/2016 DIAGNOSES: 1. Precipitous drop in hematocrit. 2. Colonoscopy x 2. Anastomotic clips removed. Polypectomy done. 3. Chronic atrial fibrillation. Long-term use of anticoagulants. Eliquis to be held for 72 hours. The patient can be restarted on Eliquis on Wednesday. Please start the patient at a low dose of 2.5 mg twice daily at that time. 4. Right upper lobe pneumonia with bronchospasm. 5. Adult failure to thrive for physical therapy and occupational therapy. 6. Chronic low back pain. 7. History of cancer of the colon, status post colectomy in 2014. HOSPITAL COURSE: This patient comes in with complaints of weakness, tiredness and cold-like symptoms with a cough. Please refer to H and P for details. She was diagnosed with right upper lobe pneumonia as well as anemia with precipitous drop in hematocrit. After admission, the patient was placed on IV antibiotics, breathing treatments and cough medications. A PT/OT and Social Service consultations were obtained for possible placement to [facility] for SNF. For the significant anemia, the patient had an iron, B12 and folic acid as well as Hemoccults were done. Hemoccults were positive. Iron was quite low with a low ferritin. Patient had a consultation with Dr. Alvarez and colonoscopy was performed. It showed anastomotic clips, which had perforated and multiple polyps. Dr. Alvarez decided to hold the Eliquis for a couple of more days before polypectomy and removal of the clips were performed. The patient was stable after that. Hemoglobin has improved and is up to 9.3. Dr. Mckinney did see the patient because of the chronic AFib and need to stop the Eliquis. He agreed the patient is stable and is accepted to [facility]. The patient will be discharged today. DISCHARGE MEDICATIONS: Will be doxycycline 100 mg p.o. twice a day for 7 days; breathing treatments with DuoNeb q.8 hours for 5 days; Eliquis 2.5 mg twice daily, start on Wednesday; atorvastatin 80 mg daily; Isordil 30 daily; [place] 5 q.4 hours p.r.n.; lorazepam 0.5 mg q.6 hours p.r.n. for anxiety and Lantus 42 units at bedtime. DISCHARGE INSTRUCTIONS: Blood sugars twice daily. ADA diet, 1800. Glipizide 5 mg twice daily. Please check her blood sugars twice daily and hold oral anti-diabetic and the insulin if the blood sugars are below 110. [place], [place] DISCHARGE SUMMARY NAME: SARAH PETERS Jennifer UNIT #: [id number] ROOM: 426 DOCTOR: SOUMYA FLORENCE MD BIRTHDATE: [birth year] SOUMYA FLORENCE MD CM:DISCHARG [id number] SOUMYA FLORENCE MD 05/30/16 1020 interface
[~2016-05-26 16:41] MED LIST changes: +ATIVAN0.5 MG PO; +LIDODERM 5% PATC1 EA T; +LOSARTAN POTASS25 M1 PO
[2016-05-26 17:18] LABS: BASO % 0.2 % (0.0-1.0); EOS # 0.2 10*3/uL (0.0-0.4); EOS % 2.1 % (1.0-4.0); HEMATOCRIT 21.6 % (37.0-47.0); HEMOGLOBIN 6.5 g/dl (12.0-16.0); LYMPH # 2.1 10*3/uL (1.3-4.4); LYMPH % 23.1 % (27.0-41.0); MEAN CELL VOLUME 89.3 fl (81.0-99.0); MEAN CORPUSCULAR HGB 26.9 pg (27.0-31.0); MEAN CORPUSCULAR HGB CONC 30.1 g/dl (33.0-37.0); MEAN PLATELET VOLUME 10.6 fl (9.6-12.3); MONO # 0.5 10*3/uL (0.1-1.0); MONO % 5.1 % (3.0-9.0); NEUT # 6.1 10*3/uL (2.3-7.9); NEUT % 69.2 % (47.0-73.0); PLATELET COUNT AUTOMATED 280 10*3/uL (130-400); RED BLOOD COUNT 2.42 10*6/uL (4.10-5.10); RED CELL DISTRI WIDTH 15.1 % (0-14.5); WHITE BLOOD COUNT 8.9 10*3/uL (4.8-10.8)
[2016-05-26 17:29] LABS: INTERNATIONAL NORM RATIO 1.1 (2.0-3.5); PROTHROMBIN TIME 11.3 SECONDS (9.0-12.4)
[2016-05-26 17:36] LABS: ALBUMIN 2.7 gm/dl (3.1-4.5); BILIRUBIN, TOTAL 0.2 mg/dl (0.2-1.0); MAGNESIUM 2.2 mg/dL (1.5-2.1); POTASSIUM 4.2 mmol/L (3.5-5.1); TOTAL PROTEIN 7.3 gm/dL (6.4-8.2)
[2016-05-26 17:40] LABS: TROPONIN I 0.056 ng/ml (<0.045)
[2016-05-26 18:20] LABS: RETICULOCYTE % 1.27 % (0.50-2.50)
[2016-05-26 18:21] LABS: IRF 12.9 % (2.4-13.3); RET-He 22.7 pg (32.1-37.9)
[2016-05-26 18:38] LABS: IRON 17 ug/dL (50-170); IRON SATURATION 4 %; UIBC 403 ug/dL (110-365)
[2016-05-26 18:54] LABS: BILIRUBIN NEGATIVE (NEGATIVE); BLOOD NEGATIVE (NEGATIVE); CLARITY SL CLOUDY (CLEAR); COLOR YELLOW (YELLOW); GLUCOSE 2+ (NEGATIVE); KETONE NEGATIVE (NEGATIVE); LEUKO ESTERASE TRACE (NEGATIVE); NITRITE NEGATIVE (NEGATIVE); PH 5.5 (5.0-9.0); PROTEIN 1+ (NEGATIVE); SPECIFIC GRAVITY 1.025 (1.005-1.030); UROBILINOGEN 0.2 E.U./dl (0.2-1.0)
[2016-05-26 19:00] LABS: BACTERIA 4+; RBC 0-2 rbc/hpf (0-2); URINE REFLEX COMMENT YES (NO)
[2016-05-26 19:59] LABS: FERRITIN 13.9 ng/mL (10.0-291.0)
[2016-05-27 01:09] LABS: TROPONIN I 0.056 ng/ml (<0.045)
[2016-05-27 05:09] LABS: RBC, FOLATE HEMATOCRIT 22.1 % (34.0-46.6)
[2016-05-27 06:12] LABS: CKMB 1.1 ng/ml (0.5-3.6)
[2016-05-27 06:14] LABS: MEAN CORPUSCULAR HGB 26.9 pg (27.0-31.0); MEAN CORPUSCULAR HGB CONC 31.4 g/dl (33.0-37.0); MEAN PLATELET VOLUME 11.7 fl (9.6-12.3); PLATELET COUNT AUTOMATED 279 10*3/uL (130-400); RED BLOOD COUNT 3.49 10*6/uL (4.10-5.10); RED CELL DISTRI WIDTH 15.2 % (0-14.5); WHITE BLOOD COUNT 8.4 10*3/uL (4.8-10.8)
[2016-05-27 06:16] LABS: HEMATOCRIT 29.9 % (37.0-47.0); HEMOGLOBIN 9.4 g/dl (12.0-16.0); MEAN CELL VOLUME 85.7 fl (81.0-99.0)
[2016-05-27 06:23] LABS: TROPONIN I 0.048 ng/ml (<0.045)
[2016-05-27 06:29] LABS: ALBUMIN 2.7 gm/dl (3.1-4.5); BILIRUBIN, TOTAL 0.4 mg/dl (0.2-1.0); FREE T4 0.81 ng/dl (0.76-1.46); MAGNESIUM 2.1 mg/dL (1.5-2.1); PHOSPHOROUS 2.8 mg/dL (2.5-4.9); POTASSIUM 4.6 mmol/L (3.5-5.1); TOTAL PROTEIN 7.6 gm/dL (6.4-8.2)
[2016-05-27 06:36] LABS: THYROID STIM HORMONE (HS) 1.6 uIU/ml (0.358-4.75)
[2016-05-27 06:40] LABS: LYMPHOCYTE # 0.3 10*3/uL (1.3-4.4); NEUTROPHIL # 8.1 10*3/uL (2.3-7.9); NEUTROPHILS 96 % (47-73); OVALOCYTES FEW; TOTAL CELLS COUNTED 100 #CELLS
[2016-05-27 06:41] LABS: HYPOCHROMIA SLIGHT; PLATELET SUFFICIENCY NORMAL (NORMAL); POLYCHROMASIA SLIGHT
[2016-05-27 06:54] LABS: FOLIC ACID 17.77 ng/mL (>5.38)
[2016-05-28 07:05] LABS: BASO % 0.2 % (0.0-1.0); EOS # 0.2 10*3/uL (0.0-0.4); EOS % 1.6 % (1.0-4.0); HEMATOCRIT 28.8 % (37.0-47.0); HEMOGLOBIN 8.9 g/dl (12.0-16.0); LYMPH # 3.1 10*3/uL (1.3-4.4); LYMPH % 28.6 % (27.0-41.0); MEAN CELL VOLUME 86.7 fl (81.0-99.0); MEAN CORPUSCULAR HGB 26.8 pg (27.0-31.0); MEAN CORPUSCULAR HGB CONC 30.9 g/dl (33.0-37.0); MEAN PLATELET VOLUME 10.9 fl (9.6-12.3); MONO # 0.6 10*3/uL (0.1-1.0); MONO % 5.7 % (3.0-9.0); NEUT # 6.9 10*3/uL (2.3-7.9); NEUT % 63.6 % (47.0-73.0); PLATELET COUNT AUTOMATED 270 10*3/uL (130-400); RED BLOOD COUNT 3.32 10*6/uL (4.10-5.10); RED CELL DISTRI WIDTH 15.5 % (0-14.5); WHITE BLOOD COUNT 10.8 10*3/uL (4.8-10.8)
[2016-05-28 07:52] LABS: POTASSIUM 3.3 mmol/L (3.5-5.1)
[2016-05-29 11:40] LABS: BASO % 0.3 % (0.0-1.0); EOS # 0.2 10*3/uL (0.0-0.4); EOS % 3.2 % (1.0-4.0); LYMPH # 2.3 10*3/uL (1.3-4.4); LYMPH % 30.8 % (27.0-41.0); MEAN CELL VOLUME 86.3 fl (81.0-99.0); MEAN CORPUSCULAR HGB CONC 31.3 g/dl (33.0-37.0); MEAN PLATELET VOLUME 10.4 fl (9.6-12.3); MONO # 0.5 10*3/uL (0.1-1.0); MONO % 6.3 % (3.0-9.0); NEUT # 4.5 10*3/uL (2.3-7.9); NEUT % 59.1 % (47.0-73.0); PLATELET COUNT AUTOMATED 297 10*3/uL (130-400); RED BLOOD COUNT 3.71 10*6/uL (4.10-5.10); RED CELL DISTRI WIDTH 15.2 % (0-14.5); WHITE BLOOD COUNT 7.6 10*3/uL (4.8-10.8)
[2016-05-29 11:53] LABS: POTASSIUM 4.3 mmol/L (3.5-5.1)
[2016-05-30 06:18] LABS: BASO % 0.4 % (0.0-1.0); EOS # 0.3 10*3/uL (0.0-0.4); HEMATOCRIT 30.7 % (37.0-47.0); HEMOGLOBIN 9.3 g/dl (12.0-16.0); LYMPH # 2.6 10*3/uL (1.3-4.4); LYMPH % 36.9 % (27.0-41.0); MEAN CELL VOLUME 87.2 fl (81.0-99.0); MEAN CORPUSCULAR HGB 26.4 pg (27.0-31.0); MEAN CORPUSCULAR HGB CONC 30.3 g/dl (33.0-37.0); MEAN PLATELET VOLUME 11.1 fl (9.6-12.3); MONO # 0.6 10*3/uL (0.1-1.0); MONO % 8.3 % (3.0-9.0); NEUT # 3.5 10*3/uL (2.3-7.9); NEUT % 50.1 % (47.0-73.0); PLATELET COUNT AUTOMATED 267 10*3/uL (130-400); RED BLOOD COUNT 3.52 10*6/uL (4.10-5.10)
[2016-05-30] MEDS ORDERED: NORCO 7.5-3251 EACH PO (09:48)
[2016-05-30] MEDS ORDERED: ATIVAN0.5 MG PO (09:48)
[2016-05-30] MEDS ORDERED: DOXYCYCLINE100 M3 PO (10:18)
[2016-05-30] MEDS ORDERED: FEOSOL325 MG PO (10:18)
== END 2016-05-30 13:27 | disposition other institution (70) | DRG 177 ==
LOC: ED 16:41 → 4E 18:25 → EDHOLD 18:25 → 4E 18:47
PROVIDERS: Internal Medicine; Internal Medicine Hospice and Palliative Medicine; Registered Nurse; Student in an Organized Health Care Education/Training Program
PROC: 0DJD8ZZ Inspection of Lower Intestinal Tract, Via Natural or Artificial Opening Endoscopic (ICD-10-PCS; principal; 2016-05-27)
PROC: 0DC Gastrointestinal System, Extirpation (ICD-10-PCS; principal; 2016-05-27)
PROC: 0DJ08ZZ Inspection of Upper Intestinal Tract, Via Natural or Artificial Opening Endoscopic (ICD-10-PCS; 2016-05-29)
PROC: 30233N1 Transfusion of Nonautologous Red Blood Cells into Peripheral Vein, Percutaneous Approach (ICD-10-PCS; 2016-05-29)
PROC: 0DBF8ZZ Excision of Right Large Intestine, Via Natural or Artificial Opening Endoscopic (ICD-10-PCS; 2016-05-29)
DX: J15.6 Pneumonia due to other Gram-negative bacteria (principal); K63.1 Perforation of intestine (nontraumatic); E11.65 Type 2 diabetes mellitus with hyperglycemia; K92.2 Gastrointestinal hemorrhage, unspecified; I48.0 Paroxysmal atrial fibrillation; E44.1 Mild protein-calorie malnutrition; I48.2 Chronic atrial fibrillation; D50.9 Iron deficiency anemia, unspecified; K44.9 Diaphragmatic hernia without obstruction or gangrene; R62.7 Adult failure to thrive; K29.70 Gastritis, unspecified, without bleeding; K63.5 Polyp of colon; G89.29 Other chronic pain; M54.5 Low back pain; Z81.1 Family history of alcohol abuse and dependence; Z87.891 Personal history of nicotine dependence; Z90.49 Acquired absence of other specified parts of digestive tract; Z85.038 Personal history of other malignant neoplasm of large intestine

== ENCOUNTER 2016-07-30 07:42 | Inpatient (IN) | payer OTHER ==
[2016-07-30] VITALS (7 sets, daily range): BP systolic 113–182; BP diastolic 52–80
[~2016-07-30] VITALS: Ht 166.3 cm; Wt 96.1 kg
--- NOTE | ~2016-07-30 | PR ---
[place], [place] PROGRESS NOTE NAME: SARAH PETERS [facility] #: [id number] UNIT #: [id number] ROOM: 411 DOCTOR: CAROL PHELPS MD BIRTHDATE: [birth year] DOS: SUBJECTIVE: The patient is sitting up in bed, did not have any cardiac complaint. No symptomatic palpitation, no dizziness, no lightheadedness. PHYSICAL EXAMINATION: VITAL SIGNS: Blood pressure 146/58 with a heart rate of 50, respiratory rate of 14, temperature 97.9. NECK: Good upstroke, no bruit. HEART: S1, S2 with no rub. LUNGS: Clear to auscultation, but decreased air movement. EXTREMITIES: Lower extremities, no edema. LABORATORY DATA: White count 8.9, hemoglobin 9.9. Potassium 4.1, creatinine 1.6, GFR 36. Elevated troponin of 0.43, 0.50, 0.54. ASSESSMENT AND PLAN: Presentation for hypertensive emergency, currently the blood pressure appeared to be under much better control. The patient with a known history of chronic atrial fibrillation, but early signs of sick sinus syndrome, continued evidence of bradycardia, on low dose of Toprol for that, I will hold the medicine completely now. From the Cardiology point of view, the patient can be discharged with early followup in our clinic within 1-2 weeks. We will consider making like long-term monitoring for any cardiac symptoms. CAROL PHELPS MD CM:PNTRANS 1036 CAROL PHELPS MD 08/01/16 1228 interface
--- NOTE | ~2016-07-30 | CON ---
[place], [place] REPORT OF CONSULTATION [id number] UNIT #: [id number] ROOM: 411 DOCTOR: RABIA OMER,CHERRI BIRTHDATE: [birth year] DOS: 07/30/2016 CARDIOLOGY CONSULTATION REASON FOR CONSULTATION: Elevated cardiac enzymes. This consultation note is an addendum to the note dictated by Dr. Vamshi Dougherty. I personally examined and assessed the patient. Rhythm strips, labs reviewed. Past medical history reviewed. Dr. Dougherty's examination and assessment reflects my work. PHYSICAL EXAMINATION: Focused cardiac exam: HEART: Regular rhythm, no S3, grade 1/6 systolic murmur. LUNGS: A few scattered rhonchi. EXTREMITIES: Showed trace edema. EKG, rhythm strips, and labs reviewed. IMPRESSION: 1. Borderline elevation of troponin due to chronic kidney disease versus recent non-ST segment elevation myocardial infarction. 2. Cycle cardiac enzymes, check a CPK and CK-MB. Continue her current cardiac medications and add low-dose beta blockers. 3. Consider Lexiscan stress test tomorrow. 4. Chronic paroxysmal atrial fibrillation, in sinus rhythm. Continue Eliquis. 5. Mild sinus bradycardia, asymptomatic, monitor heart rate and blood pressures. 6. Chronic kidney disease. 7. Valvular heart disease with mitral and tricuspid regurgitation by echo. 8. Hypertension. 9. Diabetes type 2. 10. History of colon cancer. 11. Chronic anemia. Further recommendations based on her symptoms and her labs and her testing. CHERRI CAMARILLO MD CM:CONSTR:REPORT OF CONSULTATION 1255 07/30/16 2258 interface
--- NOTE | ~2016-07-30 | DS ---
[place], [place] DISCHARGE SUMMARY NAME: SARAH PETERS [facility] #: [id number] UNIT #: [id number] ROOM: 411 DOCTOR: CARMELO JAMES MD BIRTHDATE: [birth year] DOS: 08/01/2016 DISCHARGE DIAGNOSES: 1. The patient with hypertensive emergency admitted and treated. 2. Borderline positive troponin I level evaluated with normal cardiac stress test. 3. Chronic atrial fibrillation with early signs of sick sinus syndrome with evidence of bradycardia evaluated by Cardiology and cleared for discharge. 4. Chronic atrial fibrillation. The patient anticoagulated with apixaban by Cardiology on long-term basis. 5. Normal cardiac stress test. 6. Type 2 diabetes mellitus. 7. History of colon cancer. 8. Anemia of chronic disease. 9. Also past history of chronic lower back pains. 10. History of cancer of the colon, status post colectomy in 2014. 11. Adult failure to thrive. 12. Chronic atrial fibrillation. The patient was admitted for hypertensive emergency and she was on chronic atrial fibrillation with early signs of sick sinus syndrome with bradycardia. The patient's Toprol was stopped by Cardiology and the heart rate has slightly improved. 13. Borderline positive troponin I level for which serial cardiac enzymes were performed and the patient was taken for a cardiac stress test by the pulmonary physician and finally cleared for discharge to home today to follow up with them in 1 to 2 weeks. 14. Chronic paroxysmal atrial fibrillation for which patient was recommended to have Eliquis, which has been restarted. The patient had GI bleed in the past and her present hemoglobin was 9.9 and she has no evidence of gastrointestinal bleed at this time. 15. Type 2 diabetes mellitus. Blood sugars to be monitored and controlled. 16. Benign essential hypertension with better controlled blood pressures now. The patient came in with a hypertensive emergency with blood pressures improved with treatment. DISCHARGE MANAGEMENT: Levemir insulin 42 units at bedtime, Lipitor 80 mg a day, Protonix 40 mg a day, iron 325 mg a day, levothyroxine 50 mcg daily, apixaban 5 mg b.i.d., DuoNeb every 6 hours as needed, lorazepam 0.5 mg every 6 hours p.r.n. for anxiety, Vicodin every 8 hours p.r.n. for pain. Follow up with Dr. Beasley this week. [place], [place] DISCHARGE SUMMARY [facility]: [facility] [id number] UNIT #: [id number] ROOM: 411 DOCTOR: CARMELO JAMES MD BIRTHDATE: [birth year] CARMELO JAMES MD CM:DISCHARG 1611 [id number] CARMELO JAMES MD 08/01/16 1639 interface
--- NOTE | ~2016-07-30 | ST ---
[place], [place] EXERCISE STRESS TEST REPORT NAME: SARAH PETERS [facility] #: [id number] UNIT #: [id number] ROOM: 411 DOCTOR: RABIA OMER,CHERRI BIRTHDATE: [birth year] DOS: 07/31/2016 REASON FOR TEST: Evaluation of chest pain, abnormal cardiac enzymes. PHYSICAL EXAMINATION: NECK: Supple. LUNGS: Clear anteriorly. HEART: Regular rhythm. PROTOCOL: Lexiscan protocol. Maximum heart rate 82. Peak blood pressure 130/66. SYMPTOMS: The patient's chest pain. EKG: Resting EKG sinus rhythm, sinus bradycardia, lateral ST-T changes, anteroseptal PR. Stress EKG showed no ischemia compared to baseline. No arrhythmias. CONCLUSION: Clinically, the patient is chest pain free. EKG: No new ischemia compared to baseline. POST-STRESS COMPLICATIONS: None. CHERRI CAMARILLO MD CM:STRESS:EXERCISE STRESS TEST REPORT 0926 [id number] CHERRI CAMARILLO MD
[~2016-07-30 07:42] MED LIST changes: +DOXYCYCLINE100 M3 PO; +FEOSOL325 MG PO
[2016-07-30 08:01] LABS: BASO % 0.3 % (0.0-1.0); EOS # 0.2 10*3/uL (0.0-0.4); EOS % 2.7 % (1.0-4.0); HEMATOCRIT 32.5 % (37.0-47.0); HEMOGLOBIN 9.9 g/dl (12.0-16.0); LYMPH # 4.3 10*3/uL (1.3-4.4); LYMPH % 48.2 % (27.0-41.0); MEAN CELL VOLUME 92.1 fl (81.0-99.0); MEAN CORPUSCULAR HGB CONC 30.5 g/dl (33.0-37.0); MEAN PLATELET VOLUME 10.9 fl (9.6-12.3); MONO # 0.5 10*3/uL (0.1-1.0); MONO % 5.2 % (3.0-9.0); NEUT # 3.9 10*3/uL (2.3-7.9); NEUT % 43.5 % (47.0-73.0); PLATELET COUNT AUTOMATED 237 10*3/uL (130-400); RED BLOOD COUNT 3.53 10*6/uL (4.10-5.10); RED CELL DISTRI WIDTH 18.7 % (0-14.5); WHITE BLOOD COUNT 8.9 10*3/uL (4.8-10.8)
[2016-07-30 08:11] LABS: BILIRUBIN NEGATIVE (NEGATIVE); BLOOD NEGATIVE (NEGATIVE); CLARITY SL CLOUDY (CLEAR); COLOR YELLOW (YELLOW); GLUCOSE NEGATIVE (NEGATIVE); KETONE NEGATIVE (NEGATIVE); LEUKO ESTERASE NEGATIVE (NEGATIVE); NITRITE NEGATIVE (NEGATIVE); PH 5.5 (5.0-9.0); PROTEIN TRACE (NEGATIVE); UROBILINOGEN 0.2 E.U./dl (0.2-1.0)
[2016-07-30 08:11] LABS: PROTHROMBIN TIME 10.6 SECONDS (9.0-12.4)
[2016-07-30 08:18] LABS: URINE REFLEX COMMENT NO (NO)
[2016-07-30 08:19] LABS: BACTERIA TRACE; EPITHELIAL CELLS 16-20
[2016-07-30 08:20] LABS: ALBUMIN 3.3 gm/dl (3.1-4.5); BILIRUBIN, TOTAL 0.2 mg/dl (0.2-1.0); MAGNESIUM 2.2 mg/dL (1.5-2.1); POTASSIUM 4.1 mmol/L (3.5-5.1); TOTAL PROTEIN 8.1 gm/dL (6.4-8.2)
[2016-07-30 08:22] LABS: TROPONIN I 0.054 ng/ml (<0.045)
[2016-07-30] MEDS ORDERED: ISOSORBIDE MONO30 MG PO (09:58)
[2016-07-30] MEDS ORDERED: Synthroid,Levo50 MCG PO (11:17)
[2016-07-30 14:31] LABS: CKMB 0.9 ng/ml (0.5-3.6)
[2016-07-30 14:38] LABS: TROPONIN I 0.043 ng/ml (<0.045)
[2016-07-31] VITALS: BP 140/70
[2016-07-31 08:00] VITALS: BP 153/46
[2016-07-31 16:00] VITALS: BP 145/50
[2016-07-31 20:00] VITALS: BP 154/50
[2016-08-01] VITALS: BP 153/54
[2016-08-01 08:00] VITALS: BP 146/58
[2016-08-01 12:00] VITALS: BP 152/39
[2016-08-01] MEDS ORDERED: ELIQUIS5 M1 PO (15:41)
== END 2016-08-01 16:04 | disposition home or self-care (01) | DRG 206 ==
LOC: ED 07:42 → 4E 09:23 → EDHOLD 09:23 → 4E 09:27
PROVIDERS: Emergency Medicine
PROC: 4A02XM4 Measurement of Cardiac Total Activity, External Approach (ICD-10-PCS; principal; 2016-07-30)
DX: M94.0 Chondrocostal junction syndrome [Tietze] (principal); N17.9 Acute kidney failure, unspecified; I49.5 Sick sinus syndrome; E11.22 Type 2 diabetes mellitus with diabetic chronic kidney disease; I08.1 Rheumatic disorders of both mitral and tricuspid valves; J44.9 Chronic obstructive pulmonary disease, unspecified; I16.1 Hypertensive emergency; D63.8 Anemia in other chronic diseases classified elsewhere; N18.3 Chronic kidney disease, stage 3 (moderate); I48.2 Chronic atrial fibrillation; R62.7 Adult failure to thrive; G89.29 Other chronic pain; M54.5 Low back pain; I48.0 Paroxysmal atrial fibrillation; I12.9 Hypertensive chronic kidney disease with stage 1 through stage 4 chronic kidney disease, or unspecified chronic kidney disease; E78.5 Hyperlipidemia, unspecified; E03.9 Hypothyroidism, unspecified; Z87.891 Personal history of nicotine dependence; Z82.3 Family history of stroke; Z82.49 Family history of ischemic heart disease and other diseases of the circulatory system; Z79.01 Long term (current) use of anticoagulants; Z85.038 Personal history of other malignant neoplasm of large intestine; Z90.49 Acquired absence of other specified parts of digestive tract; Z81.1 Family history of alcohol abuse and dependence; Z79.1 Long term (current) use of non-steroidal anti-inflammatories (NSAID); Z79.899 Other long term (current) drug therapy; Z79.4 Long term (current) use of insulin

== ENCOUNTER 2017-02-27 14:36 | Emergency (ER) | payer OTHER ==
[~2017-02-27] VITALS: Ht 165.1 cm; Wt 98.9 kg
[~2017-02-27 14:36] MED LIST changes: +ISOSORBIDE MONO30 MG PO; +Synthroid,Levo50 MCG PO
[2017-02-27] MEDS ORDERED: PERCOCET 7.5-31 EACH PO (15:44)
[2017-02-27] MEDS ORDERED: CYCLOBENZAPRINE5 M3 PO (15:45)
== END 2017-02-27 17:20 | disposition home or self-care (01) ==
LOC: ED 14:36
DX: M54.5 Low back pain (principal); G89.29 Other chronic pain; Z79.899 Other long term (current) drug therapy; Z90.49 Acquired absence of other specified parts of digestive tract; Z90.710 Acquired absence of both cervix and uterus

== ENCOUNTER → 2017-04-02 | Outpatient (CLI) | payer OTHER ==
[~2017-04-02] MED LIST changes: +CYCLOBENZAPRINE5 M3 PO; +PERCOCET 7.5-31 EACH PO
[2017-04-02 11:51] LABS: CREATININE 1.58 mg/dL (0.55-1.02)
== END | disposition home or self-care (01) ==
LOC: MRI 03-19 10:00 → LAB 10:46 → MRI 11:00
PROVIDERS: Radiology Diagnostic Radiology
DX: M54.5 Low back pain (principal)

== ENCOUNTER 2017-04-07 06:23 | Inpatient (IN) | payer OTHER ==
[~2017-04-07] VITALS: Ht 165.1 cm; Wt 100.4 kg
[2017-04-07] VITALS (9 sets, daily range): BP systolic 133–192; BP diastolic 55–83
--- NOTE | ~2017-04-07 | DS ---
[place], [place] DISCHARGE SUMMARY NAME: SARAH PETERS [facility] #: [id number] UNIT #: [id number] ROOM: 523 DOCTOR: CARMELO JAMES MD BIRTHDATE: [birth year] DOS: 04/13/2017 DISCHARGE DIAGNOSES: 1. Adult failure to thrive. 2. Obesity. 3. Acute dizziness with inability to ambulate. 4. Chronically elevated troponin I levels. 5. Type 2 diabetes mellitus. 6. Benign essential hypertension. 7. Hypothyroidism. 8. Anemia of chronic disease. 9. Chronic lower back pains. 10. History of colon cancer and colectomy in 2015. 11. Chronic atrial fibrillation and early signs of sick sinus syndrome with evidence of bradycardia in the past. HOSPITAL COURSE: The patient presented to the Emergency Department with acute dizziness and inability to ambulate. The patient lives at home by herself and was admitted to the hospital. Carotid arterial Dopplers were checked and she was started on physical therapy and Antivert. The patient's dizziness improved, but she did not feel comfortable enough to go home, so a consult was obtained for [facility] facility, which finally has been arranged and the patient can go to the residential today for rehabilitation. 1. Type 2 diabetes mellitus. Blood sugars were monitored and treated. The patient remains on glipizide. 2. Chronic atrial fibrillation with controlled heart rates. The patient anticoagulated with apixaban. 3. Benign essential hypertension, treated and controlled. The patient remains on losartan and amlodipine. 4. Major depression, recurrent, minor treated and controlled with Zoloft. 5. Generalized anxiety disorder, treated and controlled with lorazepam as needed. 6. Mixed hyperlipidemia, treated with atorvastatin. 7. Type 2 diabetes mellitus. The patient remains on Levemir insulin also. 8. Chronic low back pains, treated and controlled with hydrocodone as needed. LABORATORY DATA: Carotid arterial Dopplers did not show any critical stenosis. Urine cultures were negative. Troponin I levels are chronically mildly elevated for which Cardiology has evaluated her. MRA of the brain without any acute abnormality. DISCHARGE MANAGEMENT: Vicodin t.i.d. p.r.n., lorazepam 0.5 mg at bedtime, losartan 25 mg daily, apixaban 5 mg b.i.d., Lipitor 80 mg a day, Levemir insulin 42 units at bedtime, levothyroxine 50 mcg daily, glipizide 10 mg b.i.d., Protonix 40 mg a day, Zoloft 25 mg a day, amlodipine 10 mg a day. [place], [place] DISCHARGE SUMMARY [id number] #: [id number] ROOM: 523 DOCTOR: CARMELO JAMES MD BIRTHDATE: [birth year] CARMELO JAMES MD CM:DISCHARG [id number] 1 CARMELO JAMES MD 04/13/17 0901 interface
--- NOTE | ~2017-04-07 | PR ---
[place], [place] PROGRESS NOTE NAME: SARAH PETERS [facility] #: [id number] UNIT #: [id number] ROOM: 523 DOCTOR: SOUMYA FLORENCE MD BIRTHDATE: [birth year] DOS: 04/10/2017 SUBJECTIVE: The patient is doing fine, sitting up and eating her breakfast, does not have any new complaints. PHYSICAL EXAMINATION: VITAL SIGNS: Graphic trend shows blood pressure 162/67, pulse of 92, respirations 18, temperature 97.9. LUNGS: Clear. HEART: Irregular. ABDOMEN: Obese. EXTREMITIES: Without any edema. ASSESSMENT AND PLAN: 1. Adult failure to thrive with inability to ambulate, most likely from a transient ischemic event. Workup including MRI and MRA have been negative. We are awaiting precertification for placement to [place]. 2. Benign hypertension, not very well controlled and Norvasc was added yesterday. 3. Chronic troponin elevation. The patient had a stress test last year, which was negative. He has already been evaluated by Cardiology. 4. Chronic back pain, already on pain medications. MRI of the lumbar spine was done which showed broad-based disk disease with moderate central canal stenosis. We will consider pain management therapy as an outpatient. SOUMYA FLORENCE MD CM:PNTRANS [id number] SOUMYA FLORENCE MD 04/12/17 0635 interface
--- NOTE | ~2017-04-07 | PR ---
[place], [place] PROGRESS NOTE [id number] UN[facility] #: [id number] ROOM: 523 DOCTOR: MU VILLAVICENCIO MD BIRTHDATE: [birth year] DOS: 04/11/2017 SUBJECTIVE: The patient was seen at her bedside today, 04/11/2017, for followup of her multiple vascular risk factors with acute onset of dysequilibrium, nausea and vomiting. This improved since admission, but had characteristics suggesting a vertebrobasilar TIA. An MRI and MRA showed no evidence for acute stroke. Her blood pressure remains elevated and we are adjusting her antihypertensives in the hospital. She does have a history of paroxysmal atrial fibrillation and she is being managed with apixaban as a stroke prophylactic agent. The patient feels well and is waiting for long-term placement. PHYSICAL EXAMINATION: VITAL SIGNS: Today her pulse is 85 and regular, blood pressure is 155/61. She has temperature of 99.2. She weighs 100.4 kg and has a body mass index of 36.8. NECK: Supple. She has no jugular distention. Carotids are full. LUNGS: Respirations are unlabored. Her chest is clear. HEART: Has a regular rhythm with an S4 gallop. ABDOMEN: Benign. EXTREMITIES: Showed no edema. IMPRESSION: 1. Paroxysmal atrial fibrillation. 2. Type 2 diabetes mellitus. 3. Hyperlipidemia. 4. Hypertension. 5. Admission with probable vertebrobasilar transient ischemic attack. PLAN: We will continue her Eliquis for stroke prophylaxis. We will increase her amlodipine for blood pressure control. No other cardiac evaluation or change in management is indicated at this time. We will sign off for the present, but remain available to see her as needed. I thank Dr. Caro and Dr. Beasley for asking our advice regarding her care. [place], [place] PROGRESS NOTE NAME: YING PETERSLMA Jennifer [facility] [id number] UNIT #: [id number] ROOM: 523 DOCTOR: MU VILLAVICENCIO MD BIRTHDATE: [birth year] MU VILLAVICENCIO MD CM:PNTRANS 1522 MU VILLAVICENCIO MD 04/11/176 interface
--- NOTE | ~2017-04-07 | PR ---
[place], [place] PROGRESS NOTE NAME: SARAH PETERS [facility] #: [id number] UNIT #: [id number] ROOM: 523 DOCTOR: SOUMYA FLORENCE MD BIRTHDATE: [birth year] DOS: SUBJECTIVE: The patient is doing fine without any complaints. She appears a little bit depressed this morning. OBJECTIVE: VITAL SIGNS: Graphic trend shows a pressure 150/60, pulse of 55, respirations 20, temperature 98.1. LUNGS: Clear. HEART: Regular. ABDOMEN: Obese. EXTREMITIES: Without any edema. ASSESSMENT AND PLAN: 1. Adult failure to thrive, awaiting placement to [place] no precertification is available. I did try to contact the correction. 2. Benign hypertension with history of atrial fibrillation on anticoagulants. 3. Chronic elevation of troponin. Continue current medication management. 4. Chronic back pain with lumbar MRI showing diffuse disk disease and spinal stenosis. 5. Mild major depression, single episode. We will start her on a low dose antidepressant. SOUMYA FLORENCE MD CM:PNTRANS 0948 SOUMYA FLORENCE MD 04/11/17 0947 interface
--- NOTE | ~2017-04-07 | WRIGHTHP ---
[place], [place] PATIENT HISTORY AND PHYSICAL EXAM NAME: SARAH PETERS [facility] #: [id number] UNIT #: [id number] ROOM: 523 DOCTOR: CARMELO JAMES MD BIRTHDATE: [birth year] DOS: 04/07/2017 HISTORY OF PRESENT ILLNESS: The patient with a past medical history of: 1. ____. 2. Chronic atrial fibrillation and early signs of sick sinus syndrome with evidence of bradycardia in the past. 3. Type 2 diabetes mellitus. 4. Anemia of chronic disease. 5. Chronic lower back pains. 6. History of colon cancer and colectomy 2015. 7. Adult failure to thrive. The patient presented to the Emergency Department with acute dizziness starting in the middle of night and she could not walk. The patient came into the Emergency Department and her symptoms had improved, but she lives by herself and she was recommended for admission and further management. CT of the head did not show any acute abnormality. No chest pain, shortness of breath. No GI or urinary symptoms. FAMILY HISTORY: Noncontributory. SOCIAL HISTORY: Lives by herself. Denies smoking cigarettes, alcohol and drug abuse. HOME MEDICATIONS: Glipizide, Protonix, levothyroxine, insulin, Lipitor, apixaban, losartan, lorazepam, Vicodin. PHYSICAL EXAMINATION: GENERAL: Alert and oriented x 3, in no visible distress, generalized weakness, morbid obesity. LABORATORY DATA: CT head without any acute abnormality. Urinalysis without any significant signs of infection. BUN and creatinine 21 and 1.4. Normal serum electrolytes. Hemoglobin 8.6. Borderline positive troponin I level at 0.053. IMPRESSION: 1. The patient with acute episode of dizziness with normal CT of the head. I will check carotid arterial Dopplers, walk her with physical therapy and if doing well, she can be discharged home tomorrow. 2. Slightly abnormal troponin I levels. The patient is asymptomatic. I will get Cardiology's opinion. 3. Benign essential hypertension, with controlled blood pressures with treatment. 4. Chronic low back pains and spinal stenosis. I am consulting Dr. Restrepo, the orthopedic surgeon to evaluate this. 5. Hypothyroidism, treated with levothyroxine. 6. Type 2 diabetes mellitus. Blood sugar is to be monitored and treated with insulin and glipizide, which she was taking at home. 7. Mixed hyperlipidemia, treated with atorvastatin. 8. History of atrial fibrillation. The patient anticoagulated with apixaban, [place], [place] PATIENT HISTORY AND PHYSICAL EXAM [id number] UNIT #: [id number] ROOM: 523 DOCTOR: CARMELO JAMES MD BIRTHDATE: [birth year] which is being continued, with controlled heart rates. CARMELO JAMES MD CM:HISPHYS:PATIENT HISTORY AND PHYSICAL EXAMINATION 36 39 CARMELO JAMES MD 04/07/172038 interface
--- NOTE | ~2017-04-07 | PR ---
[place], [place] PROGRESS NOTE NAME: SARAH PETERS [facility] #: [id number] UNIT #: [id number] ROOM: 523 DOCTOR: CARMELO JAMES MD BIRTHDATE: [birth year] DOS: 04/09/2017 SUBJECTIVE: The patient is feeling better, although she does get dizzy off and on and she is requesting to go for rehab to half-way facility. OBJECTIVE: VITAL SIGNS: Blood pressure 151/48, heart rate of ____ beats per minute, temperature of 98.3 degrees Fahrenheit. GENERAL APPEARANCE: The patient is alert and oriented x 3, in no visible distress, except for obesity and generalized weakness. HEENT AND NECK: Exam within normal limits. CARDIOVASCULAR SYSTEM: Heart rate is regular in rate and rhythm. S1 and S2 normally audible. LUNGS: Clear to auscultation. ABDOMEN: Soft, nontender. No obvious organomegaly. Bowel sounds are present. EXTREMITIES: Without significant cyanosis or edema. IMPRESSION: 1. Acute dizziness and inability to ambulate, has improved and the patient ambulating with help of a walker. The patient lives by herself and not comfortable in going home yet and would rather go to half-way facility and get some physical therapy prior to going home. 2. Chronically elevated troponin I levels, evaluated by Cardiology. 3. Type 2 diabetes mellitus. Blood sugars are being monitored and have been reasonably controlled. 4. Benign essential hypertension, with better controlled blood pressures. 5. Hypothyroidism, replaced with supplements. The patient takes levothyroxine. CARMELO JAMES MD CM:PNTRANS 1837 CARMELO JAMES MD 04/09/17 2245 interface
--- NOTE | ~2017-04-07 | PR ---
[place], [place] PROGRESS NOTE NAME: SARAH PETERS UNIT #: [id number] ROOM: 523 DOCTOR: CARMELO JAMES MD BIRTHDATE: [birth year] DOS: 04/08/2017 SUBJECTIVE: The patient's dizziness has improved and she is able to ambulate better, but she says she is unable to go home today. OBJECTIVE: VITAL SIGNS: Blood pressure 160/54, heart rate 63 beats per minute, breathing 18 times per minute, temperature 98 degrees Fahrenheit. GENERAL APPEARANCE: The patient is alert and oriented x 3, in no visible distress. HEENT AND NECK: Exam within normal limits. CARDIOVASCULAR SYSTEM: Heart rate is regular in rate and rhythm. S1 and S2 normally audible. LUNGS: Clear to auscultation. ABDOMEN: Soft, nontender. No obvious organomegaly. Bowel sounds are present. EXTREMITIES: Without significant cyanosis or edema. IMPRESSION: 1. The patient with acute dizziness and inability to ambulate, which have improved, but I cannot discharge her today because she is unable to go home today. MRI of the brain showed no acute abnormality, just mild chronic small vessel disease. 2. Ortho consult recommended that patient can be discharged back to home. 3. MRA of the head showed no acute abnormality. 4. Urine culture is negative. 5. Chronically mildly elevated Troponin I levels, for which Cardiology was consulted. No new recommendations from them either. 6. Type 2 diabetes mellitus. Blood sugar is being monitored and controlled. 7. Adult failure to thrive. The patient lives by herself. Hopefully, I will be able to discharge her tomorrow. 8. Chronic atrial fibrillation, with controlled heart rates. The patient is anticoagulated with apixaban. 9. Benign essential hypertension, with controlled blood pressures. 10. Hypothyroidism, treated with levothyroxine. 11. Type 2 diabetes mellitus, with well controlled blood sugars, ranging between 74-170 mostly. [place], [place] PROGRESS NOTE NAME: SARAH PETERS UNIT #: [id number] ROOM: 523 DOCTOR: CARMELO JAMES MD BIRTHDATE: [birth year] CARMELO JAMES MD CM:JUAN DANIEL 1716 06 CARMELO JAMES MD 04/08/172205 interface
--- NOTE | ~2017-04-07 | PR ---
[place], [place] PROGRESS NOTE NAME: SARAH PETERS [facility] #: [id number] UNIT #: [id number] ROOM: 523 DOCTOR: SOUMYA FLORENCE MD BIRTHDATE: [birth year] DOS: 04/12/2017 SUBJECTIVE: The patient is resting comfortably, does not have any complaints. OBJECTIVE: VITAL SIGNS: Blood pressure is 166/62, pulse of 87, respirations 16 and temperature 98.2. LUNGS: Clear. HEART: Regular. ABDOMEN: Obese. EXTREMITIES: Without any edema. ASSESSMENT AND PLAN: 1. Adult failure to thrive, awaiting precertification from insurance to placement. 2. Benign hypertension. Medications adjustments are being made. 3. Chronic back pain, on medications. 4. Mild major depression, single episode. Patient has been started on sertraline. 5. Type 2 diabetes mellitus. Blood sugar this morning is 169. No new changes made in the treatment. SOUMYA FLORENCE MD CM:PNTRANS 0920 SOUMYA FLORENCE MD 04/12/17 0919 interface
[2017-04-07 07:41] LABS: BASO % 0.2 % (0.0-1.0); EOS # 0.2 10*3/uL (0.0-0.4); HEMATOCRIT 27.7 % (37.0-47.0); HEMOGLOBIN 8.6 g/dl (12.0-16.0); LYMPH # 1.9 10*3/uL (1.3-4.4); LYMPH % 22.8 % (27.0-41.0); MEAN CELL VOLUME 90.8 fl (81.0-99.0); MEAN CORPUSCULAR HGB 28.2 pg (27.0-31.0); MEAN PLATELET VOLUME 11.4 fl (9.6-12.3); MONO # 0.3 10*3/uL (0.1-1.0); MONO % 3.9 % (3.0-9.0); NEUT # 5.9 10*3/uL (2.3-7.9); NEUT % 70.9 % (47.0-73.0); PLATELET COUNT AUTOMATED 236 10*3/uL (130-400); RED BLOOD COUNT 3.05 10*6/uL (4.10-5.10); RED CELL DISTRI WIDTH 13.4 % (0-14.5); WHITE BLOOD COUNT 8.4 10*3/uL (4.8-10.8)
[2017-04-07 07:49] LABS: ACT PARTIAL THROMBO TIME 22.3 SECONDS (20.8-31.5)
[2017-04-07 08:02] LABS: ALBUMIN 3.1 gm/dl (3.1-4.5); CREATININE 1.46 mg/dL (0.55-1.02); POTASSIUM 4.3 mmol/L (3.5-5.1); TOTAL PROTEIN 7.9 gm/dL (6.4-8.2)
[2017-04-07 08:04] LABS: TROPONIN I 0.053 ng/ml (<0.045)
[2017-04-07 08:17] LABS: BILIRUBIN NEGATIVE (NEGATIVE); BLOOD 2+ (NEGATIVE); CLARITY SL CLOUDY (CLEAR); COLOR YELLOW (YELLOW); GLUCOSE NEGATIVE (NEGATIVE); KETONE NEGATIVE (NEGATIVE); LEUKO ESTERASE NEGATIVE (NEGATIVE); NITRITE NEGATIVE (NEGATIVE); PH 5.5 (5.0-9.0); UROBILINOGEN 0.2 E.U./dl (0.2-1.0)
[2017-04-07 08:25] LABS: BACTERIA 1+
[2017-04-07] MEDS ORDERED: NORCO 7.5-3251 EACH PO (11:59)
[2017-04-07] MEDS ORDERED: GLUCOTROL10 MG PO (11:59)
[2017-04-07] MEDS ORDERED: ATIVAN0.5 MG PO (12:00)
[2017-04-07] MEDS ORDERED: LOSARTAN POTASS25 M1 PO (12:00)
[2017-04-08] VITALS: BP 147/58
[2017-04-08 08:00] VITALS: BP 144/62
[2017-04-08 12:00] VITALS: BP 160/54
[2017-04-08 16:00] VITALS: BP 158/60
[2017-04-08 20:00] VITALS: BP 179/67
[2017-04-09] VITALS: BP 179/56
[2017-04-09 07:24] VITALS: BP 179/74
[2017-04-09 12:00] VITALS: BP 180/64
[2017-04-09 16:00] VITALS: BP 151/48
[2017-04-09 20:00] VITALS: BP 150/70
[2017-04-10] VITALS: BP 160/72
[2017-04-10 08:02] VITALS: BP 162/67
[2017-04-10 12:04] VITALS: BP 159/59
[2017-04-10 16:08] VITALS: BP 154/66
[2017-04-10 20:00] VITALS: BP 145/57
[2017-04-11] VITALS: BP 141/51
[2017-04-11 08:00] VITALS: BP 150/60
[2017-04-11 14:00] VITALS: BP 155/61
[2017-04-11 16:00] VITALS: BP 158/50
[2017-04-11 19:59] VITALS: BP 177/54
[2017-04-12 00:24] VITALS: BP 154/72
[2017-04-12 08:22] VITALS: BP 166/62
[2017-04-12 12:00] VITALS: BP 137/50
[2017-04-12 16:00] VITALS: BP 158/50
[2017-04-12 20:00] VITALS: BP 174/57
[2017-04-13] VITALS: BP 150/50
[2017-04-13 08:00] VITALS: BP 160/83
[2017-04-13 12:00] VITALS: BP 158/80
== END 2017-04-13 14:03 | disposition other institution (70) | DRG 149 ==
LOC: ED 06:23 → EDHOLD 11:17 → 5E 11:17
PROVIDERS: Emergency Medicine; Emergency Medicine Emergency Medical Services
DX: R42 Dizziness and giddiness (principal); E11.22 Type 2 diabetes mellitus with diabetic chronic kidney disease; I48.0 Paroxysmal atrial fibrillation; I49.5 Sick sinus syndrome; I95.9 Hypotension, unspecified; F33.9 Major depressive disorder, recurrent, unspecified; D63.8 Anemia in other chronic diseases classified elsewhere; M19.90 Unspecified osteoarthritis, unspecified site; Z68.34 Body mass index [BMI] 34.0-34.9, adult; R62.7 Adult failure to thrive; G89.29 Other chronic pain; M54.5 Low back pain; M48.00 Spinal stenosis, site unspecified; E78.2 Mixed hyperlipidemia; M48.061 Spinal stenosis, lumbar region without neurogenic claudication; E66.9 Obesity, unspecified; F41.1 Generalized anxiety disorder; J44.9 Chronic obstructive pulmonary disease, unspecified; N18.9 Chronic kidney disease, unspecified; L40.9 Psoriasis, unspecified; I12.9 Hypertensive chronic kidney disease with stage 1 through stage 4 chronic kidney disease, or unspecified chronic kidney disease; R26.81 Unsteadiness on feet; E03.9 Hypothyroidism, unspecified; Z96.1 Presence of intraocular lens; M54.9 Dorsalgia, unspecified; Z90.49 Acquired absence of other specified parts of digestive tract; Z98.49 Cataract extraction status, unspecified eye; Z90.710 Acquired absence of both cervix and uterus; Z79.4 Long term (current) use of insulin; Z87.891 Personal history of nicotine dependence; Z85.038 Personal history of other malignant neoplasm of large intestine; Z82.3 Family history of stroke; Z82.49 Family history of ischemic heart disease and other diseases of the circulatory system; Z81.1 Family history of alcohol abuse and dependence

== ENCOUNTER 2017-06-09 11:02 | Inpatient (IN) | payer OTHER ==
[~2017-06-09] VITALS: Ht 165.1 cm; Wt 107.3 kg
[2017-06-09] VITALS (7 sets, daily range): BP systolic 132–173; BP diastolic 53–64
--- NOTE | ~2017-06-09 | CON ---
[place], [place] REPORT OF CONSULTATION NAME: SARAH PETERS [facility] #: [id number] UNIT #: [id number] ROOM: 520 DOCTOR: DEV YAP MD BIRTHDATE: [birth year] DOS: 06/10/2017 HISTORY OF PRESENT ILLNESS: The patient is a pleasant 82-year-old woman who looks much younger than stated age, presented to the Emergency Department with left flank pain radiating towards the left lower back and generalized weakness. She had been feeling sick. Subsequently, while in the ER, she was found to have hemoglobin 6.5 and admitted in consult for further evaluation and management. FAMILY HISTORY: Noncontributory. ALLERGIES: No allergies. MEDICATIONS: Protonix, levothyroxine, Lipitor, glipizide, hydrocodone, lorazepam, losartan and insulin. PAST MEDICAL HISTORY: Significant for hypothyroidism, hypercholesterolemia, diabetes, history of previous colon cancer with a colectomy in 2014, history of chronic atrial fibrillation, hypothyroidism, benign essential hypertension with chronically elevated troponin 1 level, morbid obesity. REVIEW OF SYSTEMS: CONSTITUTIONAL: No chills. No fatigue. No fever. No loss of appetite. No night sweats. No weakness. No weight loss. HEENT: No trouble swallowing. No loss of smell. No loss of hearing. No double vision. No pain. No discharge. ENT AND RESPIRATORY: No wheeze. No sore throat. No change in voice. No hearing loss. No nose bleed. No cough. No trouble breathing through nose. No shortness of breath. No coughing up blood. No epistaxis. CARDIOVASCULAR: No chest pain. No dizziness. No irregular heartbeat. No leg edema. No pain in legs while walking. No palpitations. No shortness of breath. DERMATOLOGIC: No acne. No hives. No laceration. No mole. No rash. ENDOCRINE: No cold intolerance. No diabetes. No fatigue. No hot flashes. No polydipsia. No polyuria. No urinating frequently. No weight loss. HEMATOLOGIC AND LYMPH: No fatigue. No easy bruising. GASTROENTEROLOGIC: No change in bowel habits. No indigestion. No frequent bloating. No vomiting blood. No abdominal cramping. No nausea. No heartburn. No vomiting. No abdominal pain. No dysphagia. No diarrhea. No constipation. No blood in stool. FEMALE REPRODUCTIVE: No vaginal itching. No difficulty urinating. No heavy periods. No dyspareunia. No sexually active. No dysmenorrhea. No pelvic pain. No breast pain. No nipple discharge. No abnormal vaginal discharge. No hot flashes. MUSCULOSKELETAL: No back pain. No muscle pain or weakness. No neck pain. No tingling/numbness. No swelling/bruising. No osteoporosis treatment. OPTHALMOLOGIC: No double vision. No diminished vision. No loss of vision. UROLOGIC: No dysuria. No frequent nighttime urination. No irregular periods. No pain with urination. No difficulty urinating. No blood in urine. No frequent urination. No urinary incontinence. NEUROLOGIC: No loss of sensation in specific body area. No vertigo. No [place], [place] REPORT OF CONSULTATION NAME: SARAH PETERS UNIT #: [id number] ROOM: [facility] DOCTOR: DEV YAP MD BIRTHDATE: [birth year] burning pain in feet. No trouble with balance. No trouble with coordination. No loss of consciousness. No loss of feeling/power. No confusion. No headache. No tingling/numbness. PSYCHOLOGIC: No tinnitus. No headaches. No shortness of breath. No weight decrease. No nausea. No vomiting. No abdominal discomfort. No constipation. No diarrhea. No depression. No anxiety. PHYSICAL EXAMINATION: GENERAL: She is a pleasant woman, in no apparent distress. VITAL SIGNS: Stable. She is afebrile. HEENT: Oral mucosa appears intact. The external ears are normal in appearance. Nares are patent without lesions, exudates, erythema, or inflammation. Tongue is symmetrical. Uvula is midline. NECK AND THYROID: Neck supple without palpable masses. Trachea is midline. No thyromegaly. No carotid bruit or JVD. BREASTS: Normal. Nipples unremarkable. No drainage. No lumps felt on either side. HEART: Normal S1, S2, without significant murmur, rub, or gallop. LUNGS: Clear to auscultation and percussion with good air entry bilaterally. The patient is breathing easily without the use of accessory muscles. Diaphragmatic excursions are intact. ABDOMEN: No costovertebral angle tenderness. Soft. No organomegaly or masses. Nontender. No hernias present. Liver and spleen are not palpable. LYMPHATIC: No adenopathy noted in the cervical, supraclavicular, axillary, or inguinal regions. NEUROLGIC: Nonfocal. Oriented to person, place, and time. MENTAL STATUS: Appropriate for mood and affect. PERIPHERAL PULSES: No varicosities. Femoral and pedal pulses are palpable. EXTREMITIES: Without cyanosis, clubbing, or edema. No gross anomalies. LABORATORY DATA: White count of 9.2, hemoglobin 7.5, hematocrit 24.0, platelet count of 216,000. Peripheral smear shows myelocytes, retic percent is 1.70, hemoglobin was 19.8. On admission, hemoglobin on 06/09/2017 was 6.5, glucose of 58, EGFR of 33, sodium 141, potassium 4.2, chloride 107, TIBC of 405, iron 126, saturation 31, calcium 8.8, ferritin of 15.4. ASSESSMENT: 1. Component of iron deficiency anemia with guaiac stools negative. 2. Hypothyroidism. 3. Tiredness and fatigue secondary to severe anemia. 4. Status post 2 units of packed RBC. PLAN: We will be starting on iron pills. In addition, we will review peripheral smears. The other workup has been ordered depending on further intervention. I had detailed that we will also be getting B12, folic acid if not done. Ample time was spent given to the patient to ask me questions. Follow as outpatient. Thank for consulting and letting me participate in the care of this interesting patient. [place], [place] REPORT OF CONSULTATION NAME: SARAH PETERS Jennifer UNIT #: [id number] ROOM: 520 DOCTOR: DEV YAP MD BIRTHDATE: [birth year] DEV YAP MD CM:CONSTR:REPORT OF CONSULTATION 1453 06/11/17 0311 interface
--- NOTE | ~2017-06-09 | PR ---
[place], [place] PROGRESS NOTE NAME: SARAH PETERS [facility] #: [id number] UNIT #: [id number] ROOM: 520 DOCTOR: CARMELO JAMES MD BIRTHDATE: [birth year] DOS: 06/10/2017 SUBJECTIVE: The patient is feeling better. She has not noticed any blood in her stools and she has been seen by Dr. Solomon. OBJECTIVE: GENERAL APPEARANCE: The patient is alert and oriented x 3, in no visible distress, obesity. HEENT AND NECK: Exam within normal limits. CARDIOVASCULAR SYSTEM: Heart rate is regular in rate and rhythm. S1 and S2 normally audible. LUNGS: Clear to auscultation. ABDOMEN: Soft, nontender. No obvious organomegaly. Bowel sounds are present. EXTREMITIES: Without significant cyanosis or edema. LABORATORY DATA: Echocardiogram showed mild LVH. IMPRESSION: 1. Severe anemia, hemoglobin improved to 7.5. The patient has anemia of chronic disease and requires further workup by pharmacy buyer. Her stools were negative for blood. 2. Adult failure to thrive. The patient is going to custodial facility for rehabilitation and physical therapy for tiredness and fatigue. 3. Hypothyroidism, treated with supplements. 4. Mixed hyperlipidemia, treated with Lipitor. 5. Obesity. The patient is working with Dietary. 6. Mixed hyperlipidemia, treated with Lipitor. CARMELO JAMES MD CM:PNTRANS 1702 [id number] CARMELO JAMES MD 06/10/17 2258 interface
--- NOTE | ~2017-06-09 | WRIGHTHP ---
[place], [place] PATIENT HISTORY AND PHYSICAL EXAM NAME: SARAH PETERS [facility] #: [id number] UNIT #: [id number] ROOM: 520 DOCTOR: CARMELO JAMES MD BIRTHDATE: [birth year] DOS: 06/09/2017 HISTORY OF PRESENT ILLNESS: The patient is an 82-year-old female with a past medical, previous history of: 1. Previous colon cancer with colectomy in 2014. 2. Chronic atrial fibrillation. 3. Hypothyroidism. 4. Anemia of chronic disease. 5. Benign essential hypertension. 6. Type 2 diabetes mellitus. 7. Chronically elevated troponin I levels. 8. Morbid obesity. 9. Adult failure to thrive. The patient presented to the Emergency Department feeling sick. She had some left flank pain that radiated around into her left lower back and generalized weakness. The patient was having involuntary muscle spasms in her left breast, which she says are normally treated with Vicodin at home. The patient was found to be severely anemic with hemoglobin of 6.5 and was recommended for admission and further management. After admission, the patient is feeling better with blood transfusion. Stool checked for blood was negative. HOME MEDICATIONS: Protonix, levothyroxine, Lipitor, glipizide, hydrocodone, lorazepam, losartan and insulin. FAMILY HISTORY: Noncontributory. ALLERGIES: No known drug allergies. PHYSICAL EXAMINATION: GENERAL: Alert and oriented x 3, somewhat hard of hearing, but in no visible distress. The patient is significantly obese and generalized weakness. VITAL SIGNS: Blood pressure was 173/58, heart rate 78 beats per minute, breathing 20 times per minute, temperature 98 degrees Fahrenheit. HEENT AND NECK: Extraocular movements are intact. Sclerae are anicteric. Oral mucosa is moist and clean. No obvious facial weakness. Neck is supple without any lymphadenopathy. No thyromegaly. No JVD. No carotid arterial bruits. LUNGS: Clear to auscultation. No wheezing. No rhonchi. CARDIOVASCULAR SYSTEM: Heart rate is regular in rate and rhythm. S1 and S2 normally audible. No significant murmur or any other abnormal cardiac sounds. ABDOMEN: Soft, nontender. No obvious organomegaly. Bowel sounds are present. No obvious herniation. EXTREMITIES: Without significant cyanosis or edema. Warm to touch. CENTRAL NERVOUS SYSTEM: Alert and oriented x 3. Cranial nerves II-XII are intact. Speech is normal. The patient is able to move all extremities. Normal muscle strength. Deep tendon reflexes are equal on both sides. Plantars were downgoing. LABORATORY DATA: Slight elevation of cardiac enzymes, which is chronic for the patient, 0.056 and 0.053. Hemoglobin was 6.5 with normal platelets. [place], [place] PATIENT HISTORY AND PHYSICAL EX[id number] UNIT #: [id number] ROOM: [facility] DOCTOR: CARMELO JAMES MD BIRTHDATE: [birth year] creatinine 15 and 1.4. Normal serum electrolytes, bilirubin and liver enzymes. Albumin low at 2.7. IMPRESSION: 1. The patient with significant anemia, acute over chronic with hemoglobin of 6.5. Stool was negative for occult blood. I have consulted associate sales representative, Dr. Solomon to evaluate her for anemia. 2. The patient has history of anemia of chronic disease. 3. Tiredness and fatigue secondary to severe anemia. The patient has not noticed any change in color of her stools recently 4. Hypothyroidism, treated with thyroid supplements. 5. Adult failure to thrive. 6. Obesity. The patient to work with dietary. 7. Chronically elevated troponin I levels, to be reevaluated by Cardiology. 8. Previous history of colon cancer and colectomy. 9. Generalized anxiety disorder, treated with lorazepam as needed. 10. Mixed hyperlipidemia, treated with Lipitor. CARMELO JAMES MD CM:HISPHYS:PATIENT HISTORY AND PHYSICAL EXAMINATION 02 22 CARMELO JMAES MD 06/09/171922 interface
--- NOTE | ~2017-06-09 | DS ---
[place], [place] DISCHARGE SUMMARY NAME: SARAH PETERS [facility] #: [id number] UNIT #: [id number] ROOM: 520 DOCTOR: CARMELO JAMES MD BIRTHDATE: [birth year] DOS: 06/11/2017 DISCHARGE DIAGNOSES: 1. Precipitous drop in hemoglobin to 6.5 as compared to last hemoglobin of 9.4 two months earlier. 2. Previous history of colon cancer and colectomy in 2014. 3. History of chronic atrial fibrillation. 4. Hypothyroidism. 5. Anemia of chronic disease. 6. Benign essential hypertension. 7. Type 2 diabetes mellitus. 8. Chronically elevated troponin I levels. 9. Morbid obesity. 10. Adult failure to thrive. HOSPITAL COURSE: The patient presented to the Emergency Department feeling sick and weak. She also had some left flank pain that radiated around into the left lower back with generalized weakness and feeling unwell. The patient started having some involuntary muscle spasms in her left breast. The patient's hemoglobin was found to be 6.5 as compared to 9.4 in March, 2 months earlier. The patient was ordered blood and admitted for further evaluation. After admission, the patient was found to have stool negative for blood and Dr. Solomon, the admissions manager was consulted to evaluate her. The patient was transfused with 2 units of packed cells and her hemoglobin improved to 7.5 and his stayed stable for 1 day after the transfusion. The patient is feeling better and will be discharged to home to follow up with admissions manager, Dr. Solomon and also her primary care physician. The patient is with chronic atrial fibrillation. She is not a good candidate for anticoagulation because of severe anemia, which is acute anemia. Tiredness and fatigue secondary to severe anemia, improved with blood transfusion. 1Hypothyroidism, treated with supplements. Adult failure to thrive. The patient worked with Physical Therapy. Generalized anxiety disorder, treated with lorazepam. Mixed hyperlipidemia. The patient is being treated with Lipitor. LABORATORY DATA: Hemoglobin improved from 6.5 to 7.4 with blood transfusion. Chronically elevated troponin I levels, which have been evaluated by Cardiology on multiple occasions and the patient is completely asymptomatic and without any chest pains. DISCHARGE MANAGEMENT: Levothyroxine 50 mcg daily, Levemir insulin 42 units subcutaneous daily, Lipitor 80 mg a day, Vicodin 1 tablet every 4 hours p.r.n. for pain, lorazepam 0.5 mg at bedtime p.r.n. for anxiety and sleep. [place], [place] DISCHARGE SUMMARY NAME: SARAH PETERS UNIT #: [id number] ROOM: [facility] DOCTOR: CARMELO JAMES MD BIRTHDATE: [birth year] FOLLOWUP: With PCP at the office this week and follow up with Dr. Solomon for her sudden anemia. CARMELO JAMES MD CM:AMANDA [phone] [id number] CARMELO JAMES MD 06/11/171811 interface
[~2017-06-09 11:02] MED LIST changes: +GLUCOTROL10 MG PO
[2017-06-09 11:29] LABS: BILIRUBIN NEGATIVE (NEGATIVE); BLOOD NEGATIVE (NEGATIVE); CLARITY SL CLOUDY (CLEAR); COLOR YELLOW (YELLOW); GLUCOSE NEGATIVE (NEGATIVE); KETONE NEGATIVE (NEGATIVE); LEUKO ESTERASE TRACE (NEGATIVE); NITRITE NEGATIVE (NEGATIVE); PH 5.5 (5.0-9.0); SPECIFIC GRAVITY 1.025 (1.005-1.030); UROBILINOGEN 0.2 E.U./dl (0.2-1.0)
[2017-06-09 11:36] LABS: BACTERIA 1+; EPITHELIAL CELLS 15-20
[2017-06-09 11:54] LABS: BASO % 0.1 % (0.0-1.0); EOS # 0.1 10*3/uL (0.0-0.4); EOS % 1.3 % (1.0-4.0); HEMATOCRIT 22.2 % (37.0-47.0); HEMOGLOBIN 6.5 g/dl (12.0-16.0); LYMPH # 1.8 10*3/uL (1.3-4.4); LYMPH % 19.5 % (27.0-41.0); MEAN CELL VOLUME 87.7 fl (81.0-99.0); MEAN CORPUSCULAR HGB 25.7 pg (27.0-31.0); MEAN CORPUSCULAR HGB CONC 29.3 g/dl (33.0-37.0); MEAN PLATELET VOLUME 11.4 fl (9.6-12.3); MONO # 0.5 10*3/uL (0.1-1.0); MONO % 5.1 % (3.0-9.0); NEUT # 6.6 10*3/uL (2.3-7.9); NEUT % 73.6 % (47.0-73.0); PLATELET COUNT AUTOMATED 217 10*3/uL (130-400); RED BLOOD COUNT 2.53 10*6/uL (4.10-5.10); RED CELL DISTRI WIDTH 16.2 % (0-14.5)
[2017-06-09 12:08] LABS: ALBUMIN 2.7 gm/dl (3.1-4.5); CREATININE 1.41 mg/dL (0.55-1.02); POTASSIUM 4.2 mmol/L (3.5-5.1); TOTAL PROTEIN 7.5 gm/dL (6.4-8.2)
[2017-06-10] VITALS: BP 154/55
[2017-06-10 06:09] LABS: HEMOGLOBIN 7.5 g/dl (12.0-16.0); MEAN CELL VOLUME 84.8 fl (81.0-99.0); MEAN CORPUSCULAR HGB 26.5 pg (27.0-31.0); MEAN CORPUSCULAR HGB CONC 31.3 g/dl (33.0-37.0); MEAN PLATELET VOLUME 11.7 fl (9.6-12.3); PLATELET COUNT AUTOMATED 216 10*3/uL (130-400); RED BLOOD COUNT 2.83 10*6/uL (4.10-5.10); RED CELL DISTRI WIDTH 15.9 % (0-14.5); WHITE BLOOD COUNT 9.2 10*3/uL (4.8-10.8)
[2017-06-10 06:14] LABS: CREATININE 1.52 mg/dL (0.55-1.02); POTASSIUM 4.2 mmol/L (3.5-5.1)
[2017-06-10 06:45] LABS: BASOPHILS 1 % (0-1); PLATELET SUFFICIENCY NORMAL (NORMAL); POLYCHROMASIA SLIGHT; TOTAL CELLS COUNTED 100 #CELLS
[2017-06-10 16:00] VITALS: BP 177/63
[2017-06-10 20:00] VITALS: BP 161/55
[2017-06-11] VITALS: BP 161/69
[2017-06-11 05:58] LABS: BASO % 0.2 % (0.0-1.0); EOS # 0.2 10*3/uL (0.0-0.4); EOS % 2.4 % (1.0-4.0); HEMOGLOBIN 7.4 g/dl (12.0-16.0); LYMPH # 2.1 10*3/uL (1.3-4.4); LYMPH % 24.7 % (27.0-41.0); MEAN CELL VOLUME 85.9 fl (81.0-99.0); MEAN CORPUSCULAR HGB 25.4 pg (27.0-31.0); MEAN CORPUSCULAR HGB CONC 29.6 g/dl (33.0-37.0); MEAN PLATELET VOLUME 11.6 fl (9.6-12.3); MONO # 0.6 10*3/uL (0.1-1.0); MONO % 7.3 % (3.0-9.0); NEUT # 5.6 10*3/uL (2.3-7.9); NEUT % 64.8 % (47.0-73.0); PLATELET COUNT AUTOMATED 225 10*3/uL (130-400); RED BLOOD COUNT 2.91 10*6/uL (4.10-5.10); RED CELL DISTRI WIDTH 15.9 % (0-14.5); WHITE BLOOD COUNT 8.7 10*3/uL (4.8-10.8)
[2017-06-11 06:29] LABS: CREATININE 1.5 mg/dL (0.55-1.02); POTASSIUM 4.3 mmol/L (3.5-5.1)
[2017-06-11 08:00] VITALS: BP 129/50
== END 2017-06-11 15:55 | disposition home health service (06) | DRG 812 ==
LOC: ED 11:02 → 5E 12:41 → EDHOLD 12:41 → 5E 13:06
PROVIDERS: Internal Medicine; Internal Medicine Hematology & Oncology; Nurse Practitioner Family
PROC: 30233N1 Transfusion of Nonautologous Red Blood Cells into Peripheral Vein, Percutaneous Approach (ICD-10-PCS; principal; 2017-06-09)
DX: D50.9 Iron deficiency anemia, unspecified (principal); E44.0 Moderate protein-calorie malnutrition; E11.22 Type 2 diabetes mellitus with diabetic chronic kidney disease; E66.01 Morbid (severe) obesity due to excess calories; I48.0 Paroxysmal atrial fibrillation; E03.9 Hypothyroidism, unspecified; E78.2 Mixed hyperlipidemia; F41.1 Generalized anxiety disorder; I16.1 Hypertensive emergency; J44.9 Chronic obstructive pulmonary disease, unspecified; N18.3 Chronic kidney disease, stage 3 (moderate); R62.7 Adult failure to thrive; Z96.1 Presence of intraocular lens; D63.8 Anemia in other chronic diseases classified elsewhere; I12.9 Hypertensive chronic kidney disease with stage 1 through stage 4 chronic kidney disease, or unspecified chronic kidney disease; G89.29 Other chronic pain; M54.9 Dorsalgia, unspecified; Z79.899 Other long term (current) drug therapy; Z90.710 Acquired absence of both cervix and uterus; Z90.49 Acquired absence of other specified parts of digestive tract; Z87.891 Personal history of nicotine dependence; Z82.3 Family history of stroke; Z81.1 Family history of alcohol abuse and dependence; Z82.49 Family history of ischemic heart disease and other diseases of the circulatory system; Z80.9 Family history of malignant neoplasm, unspecified; Z85.038 Personal history of other malignant neoplasm of large intestine; Z98.49 Cataract extraction status, unspecified eye; Z68.39 Body mass index [BMI] 39.0-39.9, adult

== ENCOUNTER 2017-06-28 19:02 | Emergency (ER) | payer OTHER ==
[~2017-06-28] VITALS: Ht 165.1 cm; Wt 98.9 kg
[2017-06-28 19:20] LABS: BILIRUBIN NEGATIVE (NEGATIVE); BLOOD 3+ (NEGATIVE); CLARITY CLEAR (CLEAR); COLOR YELLOW (YELLOW); GLUCOSE NEGATIVE (NEGATIVE); KETONE NEGATIVE (NEGATIVE); LEUKO ESTERASE TRACE (NEGATIVE); NITRITE NEGATIVE (NEGATIVE); PH 5.5 (5.0-9.0); SPECIFIC GRAVITY 1.025 (1.005-1.030); UROBILINOGEN 0.2 E.U./dl (0.2-1.0)
[2017-06-28 19:31] LABS: BACTERIA 2+; RBC 16-20 rbc/hpf (0-2); WBC 31-40 wbc/hpf (0-5)
[2017-06-28] MEDS ORDERED: CYCLOBENZAPRINE5 M3 PO (20:46)
== END 2017-06-28 20:45 | disposition home or self-care (01) ==
LOC: ED 19:02
PROVIDERS: Student in an Organized Health Care Education/Training Program
DX: G89.29 Other chronic pain (principal); M54.5 Low back pain; M19.90 Unspecified osteoarthritis, unspecified site; I12.9 Hypertensive chronic kidney disease with stage 1 through stage 4 chronic kidney disease, or unspecified chronic kidney disease; E11.22 Type 2 diabetes mellitus with diabetic chronic kidney disease; N18.9 Chronic kidney disease, unspecified; E78.5 Hyperlipidemia, unspecified; E03.9 Hypothyroidism, unspecified; I48.91 Unspecified atrial fibrillation; Z85.038 Personal history of other malignant neoplasm of large intestine; Z87.891 Personal history of nicotine dependence; Z90.710 Acquired absence of both cervix and uterus; Z90.89 Acquired absence of other organs; Z90.49 Acquired absence of other specified parts of digestive tract; Z79.4 Long term (current) use of insulin; Z79.899 Other long term (current) drug therapy

== ENCOUNTER → 2017-06-28 | Outpatient (CLI) | payer OTHER ==
[2017-06-28 13:37] LABS: BASO % 0.3 % (0.0-1.0); EOS # 0.1 10*3/uL (0.0-0.4); EOS % 0.8 % (1.0-4.0); HEMATOCRIT 25.7 % (37.0-47.0); HEMOGLOBIN 7.6 g/dl (12.0-16.0); LYMPH # 2.5 10*3/uL (1.3-4.4); LYMPH % 23.4 % (27.0-41.0); MEAN CELL VOLUME 85.7 fl (81.0-99.0); MEAN CORPUSCULAR HGB 25.3 pg (27.0-31.0); MEAN CORPUSCULAR HGB CONC 29.6 g/dl (33.0-37.0); MEAN PLATELET VOLUME 11.1 fl (9.6-12.3); MONO # 0.6 10*3/uL (0.1-1.0); MONO % 5.3 % (3.0-9.0); NEUT # 7.4 10*3/uL (2.3-7.9); NEUT % 69.9 % (47.0-73.0); PLATELET COUNT AUTOMATED 321 10*3/uL (130-400); RED CELL DISTRI WIDTH 17.2 % (0-14.5); WHITE BLOOD COUNT 10.6 10*3/uL (4.8-10.8)
== END | disposition home or self-care (01) ==
LOC: LAB 13:21
PROVIDERS: Internal Medicine Hematology & Oncology
DX: D50.9 Iron deficiency anemia, unspecified (principal)

== ENCOUNTER → 2017-07-05 | Outpatient (CLI) | payer OTHER ==
[2017-07-05 11:14] LABS: BASO % 0.2 % (0.0-1.0); EOS # 0.3 10*3/uL (0.0-0.4); EOS % 2.5 % (1.0-4.0); HEMATOCRIT 26.7 % (37.0-47.0); HEMOGLOBIN 7.7 g/dl (12.0-16.0); LYMPH # 1.9 10*3/uL (1.3-4.4); LYMPH % 18.1 % (27.0-41.0); MEAN CORPUSCULAR HGB 25.1 pg (27.0-31.0); MEAN CORPUSCULAR HGB CONC 28.8 g/dl (33.0-37.0); MEAN PLATELET VOLUME 11.1 fl (9.6-12.3); MONO # 0.5 10*3/uL (0.1-1.0); NEUT # 7.9 10*3/uL (2.3-7.9); NEUT % 73.7 % (47.0-73.0); PLATELET COUNT AUTOMATED 258 10*3/uL (130-400); RED BLOOD COUNT 3.07 10*6/uL (4.10-5.10); RED CELL DISTRI WIDTH 19.6 % (0-14.5); WHITE BLOOD COUNT 10.7 10*3/uL (4.8-10.8)
== END | disposition home or self-care (01) ==
LOC: CT 09:00
PROVIDERS: Internal Medicine Hematology & Oncology
DX: N20.0 Calculus of kidney (principal); M47.899 Other spondylosis, site unspecified; D50.9 Iron deficiency anemia, unspecified; Z85.038 Personal history of other malignant neoplasm of large intestine

== ENCOUNTER → 2017-07-06 | Outpatient (CLI) | payer OTHER ==
[2017-07-06 10:00] VITALS: BP 141/61
[2017-07-06 11:40] VITALS: BP 166/56
[2017-07-06 12:05] VITALS: BP 175/63
[2017-07-06 12:30] VITALS: BP 157/59
[2017-07-06 14:14] LABS: BASO % 0.3 % (0.0-1.0); EOS # 0.2 10*3/uL (0.0-0.4); EOS % 1.8 % (1.0-4.0); HEMATOCRIT 30.9 % (37.0-47.0); LYMPH # 2.5 10*3/uL (1.3-4.4); LYMPH % 23.3 % (27.0-41.0); MEAN CELL VOLUME 89.6 fl (81.0-99.0); MEAN CORPUSCULAR HGB 26.1 pg (27.0-31.0); MEAN CORPUSCULAR HGB CONC 29.1 g/dl (33.0-37.0); MEAN PLATELET VOLUME 11.7 fl (9.6-12.3); MONO # 0.5 10*3/uL (0.1-1.0); MONO % 4.9 % (3.0-9.0); NEUT # 7.4 10*3/uL (2.3-7.9); NEUT % 69.3 % (47.0-73.0); PLATELET COUNT AUTOMATED 263 10*3/uL (130-400); RED BLOOD COUNT 3.45 10*6/uL (4.10-5.10); RED CELL DISTRI WIDTH 19.4 % (0-14.5); WHITE BLOOD COUNT 10.6 10*3/uL (4.8-10.8)
== END | disposition home or self-care (01) ==
LOC: TRNFUSION 03:51
PROVIDERS: Internal Medicine Hematology & Oncology
DX: D50.9 Iron deficiency anemia, unspecified (principal); I10 Essential (primary) hypertension; E11.9 Type 2 diabetes mellitus without complications; I25.10 Atherosclerotic heart disease of native coronary artery without angina pectoris

== ENCOUNTER → 2017-07-13 | Outpatient (CLI) | payer OTHER ==
[2017-07-13 10:34] LABS: BASO % 0.3 % (0.0-1.0); EOS # 0.2 10*3/uL (0.0-0.4); EOS % 2.6 % (1.0-4.0); HEMATOCRIT 32.7 % (37.0-47.0); HEMOGLOBIN 9.5 g/dl (12.0-16.0); LYMPH # 2.2 10*3/uL (1.3-4.4); LYMPH % 24.3 % (27.0-41.0); MEAN CELL VOLUME 92.1 fl (81.0-99.0); MEAN CORPUSCULAR HGB 26.8 pg (27.0-31.0); MEAN CORPUSCULAR HGB CONC 29.1 g/dl (33.0-37.0); MEAN PLATELET VOLUME 11.6 fl (9.6-12.3); MONO # 0.4 10*3/uL (0.1-1.0); MONO % 4.1 % (3.0-9.0); NEUT # 6.2 10*3/uL (2.3-7.9); NEUT % 68.4 % (47.0-73.0); PLATELET COUNT AUTOMATED 349 10*3/uL (130-400); RED BLOOD COUNT 3.55 10*6/uL (4.10-5.10); RED CELL DISTRI WIDTH 22.4 % (0-14.5); WHITE BLOOD COUNT 9.1 10*3/uL (4.8-10.8)
== END | disposition home or self-care (01) ==
LOC: LAB 09:35
PROVIDERS: Internal Medicine Hematology & Oncology
DX: D50.9 Iron deficiency anemia, unspecified (principal)

== ENCOUNTER → 2017-08-02 | Outpatient (CLI) | payer OTHER ==
[2017-08-02 12:05] LABS: BASO % 0.2 % (0.0-1.0); EOS # 0.2 10*3/uL (0.0-0.4); EOS % 1.6 % (1.0-4.0); HEMATOCRIT 30.5 % (37.0-47.0); MEAN CELL VOLUME 94.1 fl (81.0-99.0); MEAN CORPUSCULAR HGB 27.8 pg (27.0-31.0); MEAN CORPUSCULAR HGB CONC 29.5 g/dl (33.0-37.0); MEAN PLATELET VOLUME 11.6 fl (9.6-12.3); MONO # 0.4 10*3/uL (0.1-1.0); MONO % 4.1 % (3.0-9.0); NEUT # 6.6 10*3/uL (2.3-7.9); NEUT % 71.8 % (47.0-73.0); PLATELET COUNT AUTOMATED 192 10*3/uL (130-400); RED BLOOD COUNT 3.24 10*6/uL (4.10-5.10); RED CELL DISTRI WIDTH 21.8 % (0-14.5); WHITE BLOOD COUNT 9.2 10*3/uL (4.8-10.8)
== END | disposition home or self-care (01) ==
LOC: LAB 11:28
PROVIDERS: Internal Medicine Hematology & Oncology
DX: D50.9 Iron deficiency anemia, unspecified (principal)

== ENCOUNTER → 2017-08-12 | Outpatient (CLI) | payer OTHER ==
[~2017-08-12] MED LIST changes: +B121000 MCG/2 IM; +COLACE100 MG PO; +CYMBALTA20 M1 PO; +DIGOXIN125 MCG PO; +DILTIAZEM CD240 MG PO; +HYDROCODONE-AC1 EAC2 PO; +IRON325 M1 PO; +LANTUS SOL100 UNIT/1 SC; +LANTUS SOL100 UNIT/1 SQ; +LIDOCAINE5 GM T; +LIDODERM1 EACH T; +Lanoxin PO; +PRILOSEC20 M1 PO; +SYNTHROID,LEVO75 MCG PO; -Synthroid,Levo50 MCG PO; +TRAZODONE50 MG PO; +TYLENOL EXTRA500 MG PO; +VITAMIN D50000 UNIT PO; +XARE15TA PO
[2017-08-12 10:52] LABS: BASO % 0.3 % (0.0-1.0); EOS # 0.2 10*3/uL (0.0-0.4); EOS % 2.1 % (1.0-4.0); HEMATOCRIT 33.8 % (37.0-47.0); LYMPH # 2.2 10*3/uL (1.3-4.4); LYMPH % 28.8 % (27.0-41.0); MEAN CELL VOLUME 94.4 fl (81.0-99.0); MEAN CORPUSCULAR HGB 27.9 pg (27.0-31.0); MEAN CORPUSCULAR HGB CONC 29.6 g/dl (33.0-37.0); MEAN PLATELET VOLUME 11.6 fl (9.6-12.3); MONO # 0.4 10*3/uL (0.1-1.0); MONO % 5.3 % (3.0-9.0); NEUT # 4.8 10*3/uL (2.3-7.9); NEUT % 63.2 % (47.0-73.0); PLATELET COUNT AUTOMATED 272 10*3/uL (130-400); RED BLOOD COUNT 3.58 10*6/uL (4.10-5.10); WHITE BLOOD COUNT 7.6 10*3/uL (4.8-10.8)
== END | disposition home or self-care (01) ==
LOC: LAB 10:03
PROVIDERS: Internal Medicine Hematology & Oncology
DX: D50.9 Iron deficiency anemia, unspecified (principal)

== ENCOUNTER 2017-08-14 07:54 | Inpatient (IN) | payer OTHER ==
[~2017-08-14] VITALS: Ht 165.1 cm; Wt 100.0 kg
--- NOTE | ~2017-08-14 | WRIGHTHP ---
[place], [place] PATIENT HISTORY AND PHYSICAL EXAM NAME: SARAH [facility] #: [id number] UNIT #: [id number] ROOM: 507 DOCTOR: CARMELO JAMES MD BIRTHDATE: [birth year] DOS: 08/14/2017 HISTORY OF PRESENT ILLNESS: The patient presented to the Emergency Department with mental confusion. The patient's sugars were found to be low and her mental status improved after she was given orange juice. The patient was taking glipizide and insulin at home. The patient also complained of having intermittent chest pains over last past 2 weeks. The patient is symptom free now. No dizziness or fainting episodes. No other GI or urinary symptoms, but she does complain of chronic back pains. REVIEW OF SYSTEMS: LUNGS: No increasing shortness of breath. GASTROINTESTINAL: No decrease in appetite. No nausea, vomiting, diarrhea or constipation. CARDIOVASCULAR: Recurrent chest pains for 2 weeks. PAST MEDICAL HISTORY: Obesity, generalized anxiety disorder, chronic back pains, lumbar spondylosis, COPD, type 2 diabetes mellitus, mixed hyperlipidemia, adult failure to thrive, generalized weakness, gait instability, history of colon cancer, benign essential hypertension, paroxysmal atrial fibrillation, hypothyroidism, psoriasis and history of urinary stones. HOME MEDICATIONS: Protonix, levothyroxine, Lipitor, glipizide, Vicodin, lorazepam, losartan and insulin. PHYSICAL EXAMINATION: GENERAL: Alert, oriented x 3, in no visible distress, significantly obese. HEENT AND NECK: Extraocular movements are intact. Sclerae are anicteric. Oral mucosa is moist and clean. No obvious facial weakness. Neck is supple without any lymphadenopathy. No thyromegaly. No JVD. No carotid arterial bruits. LUNGS: Clear to auscultation. No wheezing. No rhonchi. CARDIOVASCULAR SYSTEM: Heart rate is regular in rate and rhythm. S1 and S2 normally audible. No significant murmur or any other abnormal cardiac sounds. ABDOMEN: Soft, nontender. No obvious organomegaly. Bowel sounds are present. No obvious herniation. EXTREMITIES: Without significant cyanosis or edema. Warm to touch. CENTRAL NERVOUS SYSTEM: Alert and oriented x 3. Cranial nerves II-XII are intact. Speech is normal. The patient is able to move all extremities. Normal muscle strength. Deep tendon reflexes are equal on both sides. Plantars were downgoing. LABORATORY DATA: Hemoglobin 10, platelets normal. No leukocytosis, lactic acid level was normal. BUN and creatinine 21 and 1.5. Chest x-ray without acute abnormality. IMPRESSION: 1. Type 2 diabetes mellitus with recurrent hypoglycemia for which her insulin has been cut to half and glipizide stopped. The patient's blood sugars are being monitored closely. The patient is not complaining of any nausea, vomiting or decreased appetite and that she had been eating well at home. So I am not [place], [place] PATIENT HISTORY AND PHYSICAL EXAM NAME: SARAH PETERS UNIT #: [id number] ROOM: 507 DOCTOR: ERIKA OMER,CARMELO García BIRTHDATE: [birth year] certain about why she presented with recurrent hypoglycemia. The patient's blood sugars to be monitored closely in the hospital. 2. Atypical chest pains as evaluated by Dr. Cristóbal Ugalde, the automotive internet sales manager who has recommended observation only. Cardiac enzymes have been negative. 3. Obesity. The patient to work with dietary. 4. Lumbar spondylosis and chronic back pains. The patient requesting Vicodin, which she was taking as an outpatient and has been continued. 5. Benign essential hypertension, treated and controlled. 6. Chronic atrial fibrillation. The patient anticoagulated with apixaban. Heart rates are controlled. 7. Adult failure to thrive. The patient to work with physical therapy. 8. The patient does have history of chronically elevated troponin I levels. 9. Previous history of colon cancer and colectomy in 2014. CRAMELO JAMES MD CM:HISPHYS:PATIENT HISTORY AND PHYSICAL EXAMINATION [id number] CARMELO JAMES MD 08/14/171926 interface
--- NOTE | ~2017-08-14 | DS ---
[place], [place] DISCHARGE SUMMARY NAME: SARAH PETERS [facility] #: [id number] UNIT #: [id number] ROOM: 507 DOCTOR: CARMELO JAMES MD BIRTHDATE: [birth year] DOS: 08/15/2017 DISCHARGE DIAGNOSES: 1. Atypical chest pains evaluated by Cardiology with negative cardiac enzymes. 2. Hypoglycemia. 3. Type 2 diabetes mellitus. 4. Obesity. 5. Lumbar spondylosis and chronic back pains. 6. Benign essential hypertension. 7. Chronic atrial fibrillation. 8. Adult failure to thrive. 9. History of chronically elevated troponin I levels. 10. History of colon cancer and colectomy in 2014. HOSPITAL COURSE: The patient presented to the Emergency Department with mental confusion and her blood sugars were found to be low. The patient's mental status improved after she was given orange juice. The patient was taking insulin and glipizide at home, although she had no complaints of any nausea, vomiting or poor appetite recently. The patient's sugars remained low at the hospital and her glipizide and insulin was stopped. The patient now is being restarted on small dose of Lantus insulin and asked to follow a diabetic diet at home. The patient apparently has a very poor diet and can see him sugars, which caused a significant hyperglycemia and then she requires insulin. The patient was not checking her sugars at home and she already has a glucometer. The patient is being provided with sugar strips from the pharmacy at the hospital, so she can check her sugars and write them down and bring them to the office to see Dr. Devi Beasley, her PCP, this week, so her diabetic treatment can be adjusted. Atypical chest pains evaluated by electronics scale tester, Dr. Cristóbal Ugalde. Rug Shampooer only recommended observation. Cardiac enzymes were negative. Dr. Devi Beasley can decide to do an outpatient cardiac stress test. Chronic back pains and lumbar spondylosis treated with Vicodin. Chronic atrial fibrillation. The patient anticoagulated with apixaban. Heart rates are controlled. Adult failure to thrive and obesity. The patient educated on diet and physical therapy consult was ordered. The patient is ambulating well in the hallways. The patient does have previous history of chronically elevated troponin I levels. Previous history of colon cancer and colectomy in 2014. DISCHARGE MANAGEMENT: Losartan 25 mg a day, Protonix 40 mg a day, levothyroxine 50 mcg daily, Lipitor 80 mg a day, Lantus insulin 10 units daily. No concentrated sweet diet. Lorazepam 0.5 mg at bedtime, Vicodin every 4 hours as needed as she was taking at home for chronic back pains. [place], [place] DISCHARGE SUMMARY [facility] [id number] UNIT #: [id number] ROOM: 507 DOCTOR: CARMELO JAMES MD BIRTHDATE: [birth year] CARMELO JAMES MD CM:DISCHNEELIMA [id number] CARMELO JAMES MD 08/16/17 0233 interface
[~2017-08-14 07:54] MED LIST changes: -B121000 MCG/2 IM; -COLACE100 MG PO; -CYMBALTA20 M1 PO; -DIGOXIN125 MCG PO; -DILTIAZEM CD240 MG PO; -HYDROCODONE-AC1 EAC2 PO; -IRON325 M1 PO; -LANTUS SOL100 UNIT/1 SC; -LANTUS SOL100 UNIT/1 SQ; -LIDOCAINE5 GM T; -LIDODERM1 EACH T; -Lanoxin PO; -PRILOSEC20 M1 PO; -TRAZODONE50 MG PO; -TYLENOL EXTRA500 MG PO; -VITAMIN D50000 UNIT PO; -XARE15TA PO
[2017-08-14 08:05] VITALS: BP 186/52
[2017-08-14 08:18] LABS: BASO % 0.2 % (0.0-1.0); EOS # 0.1 10*3/uL (0.0-0.4); EOS % 1.3 % (1.0-4.0); HEMATOCRIT 34.6 % (37.0-47.0); HEMOGLOBIN 10.3 g/dl (12.0-16.0); LYMPH # 1.4 10*3/uL (1.3-4.4); LYMPH % 16.5 % (27.0-41.0); MEAN CELL VOLUME 95.3 fl (81.0-99.0); MEAN CORPUSCULAR HGB 28.4 pg (27.0-31.0); MEAN CORPUSCULAR HGB CONC 29.8 g/dl (33.0-37.0); MEAN PLATELET VOLUME 11.3 fl (9.6-12.3); MONO # 0.3 10*3/uL (0.1-1.0); MONO % 3.9 % (3.0-9.0); NEUT # 6.6 10*3/uL (2.3-7.9); NEUT % 77.9 % (47.0-73.0); PLATELET COUNT AUTOMATED 271 10*3/uL (130-400); RED BLOOD COUNT 3.63 10*6/uL (4.10-5.10); RED CELL DISTRI WIDTH 21.7 % (0-14.5); WHITE BLOOD COUNT 8.5 10*3/uL (4.8-10.8)
[2017-08-14 08:34] LABS: ALBUMIN 3.2 gm/dl (3.1-4.5); CREATININE 1.51 mg/dL (0.55-1.02); POTASSIUM 4.4 mmol/L (3.5-5.1); TOTAL PROTEIN 8.2 gm/dL (6.4-8.2)
[2017-08-14 08:35] LABS: TROPONIN I 0.043 ng/ml (<0.045)
[2017-08-14 08:39] LABS: BILIRUBIN NEGATIVE (NEGATIVE); BLOOD 3+ (NEGATIVE); CLARITY SL CLOUDY (CLEAR); COLOR YELLOW (YELLOW); GLUCOSE NEGATIVE (NEGATIVE); KETONE NEGATIVE (NEGATIVE); LEUKO ESTERASE NEGATIVE (NEGATIVE); NITRITE NEGATIVE (NEGATIVE); PH 5.5 (5.0-9.0); SPECIFIC GRAVITY 1.015 (1.005-1.030); UROBILINOGEN 0.2 E.U./dl (0.2-1.0)
[2017-08-14 09:15] VITALS: BP 170/56
[2017-08-14 09:15] LABS: RBC 41-50 rbc/hpf (0-2)
[2017-08-14 09:16] LABS: BACTERIA 2+
[2017-08-14 09:41] VITALS: BP 151/48
[2017-08-14] MEDS ORDERED: IRON325 M1 PO (11:25)
[2017-08-14 16:00] VITALS: BP 138/72
[2017-08-14 20:02] VITALS: BP 123/66
[2017-08-15] VITALS: BP 147/58
[2017-08-15 08:00] VITALS: BP 150/52
[2017-08-15 16:00] VITALS: BP 149/58
[2017-08-15] MEDS ORDERED: LANTUS SOL100 UNIT/1 SQ (16:11)
== END 2017-08-15 16:50 | disposition home or self-care (01) | DRG 639 ==
LOC: ED 07:54 → EDHOLD 08:52 → 5E 09:00
PROVIDERS: Emergency Medicine
DX: E11.649 Type 2 diabetes mellitus with hypoglycemia without coma (principal); I48.0 Paroxysmal atrial fibrillation; E11.22 Type 2 diabetes mellitus with diabetic chronic kidney disease; R07.89 Other chest pain; I48.2 Chronic atrial fibrillation; E66.9 Obesity, unspecified; M47.896 Other spondylosis, lumbar region; G89.29 Other chronic pain; F41.1 Generalized anxiety disorder; E78.2 Mixed hyperlipidemia; M54.9 Dorsalgia, unspecified; I12.9 Hypertensive chronic kidney disease with stage 1 through stage 4 chronic kidney disease, or unspecified chronic kidney disease; N18.9 Chronic kidney disease, unspecified; J44.9 Chronic obstructive pulmonary disease, unspecified; E03.9 Hypothyroidism, unspecified; Z96.1 Presence of intraocular lens; R62.7 Adult failure to thrive; Z85.038 Personal history of other malignant neoplasm of large intestine; Z90.49 Acquired absence of other specified parts of digestive tract; Z79.4 Long term (current) use of insulin; Z79.899 Other long term (current) drug therapy; Z68.36 Body mass index [BMI] 36.0-36.9, adult; Z98.49 Cataract extraction status, unspecified eye; Z87.891 Personal history of nicotine dependence; Z82.3 Family history of stroke; Z82.49 Family history of ischemic heart disease and other diseases of the circulatory system; Z81.1 Family history of alcohol abuse and dependence; Z80.9 Family history of malignant neoplasm, unspecified

== ENCOUNTER 2017-08-23 18:53 | Inpatient (IN) | payer OTHER ==
[~2017-08-23] VITALS: Ht 165.1 cm; Wt 97.7 kg
--- NOTE | ~2017-08-23 | DS ---
[place], [place] DISCHARGE SUMMARY NAME: SARAH PETERS [facility] #: [id number] UNIT #: [id number] ROOM: [facility] DOCTOR: CARMELO JAMES MD BIRTHDATE: [birth year] DOS: 08/26/2017 DISCHARGE DIAGNOSES: The patient with: 1. Chronic atrial fibrillation with rapid ventricular response. 2. Type 2 diabetes mellitus. 3. Obesity. 4. Adult failure to thrive. 5. Type 2 diabetes mellitus. 6. Chronic kidney disease stage 3B. 7. Mixed hyperlipidemia. 8. Gastroesophageal reflux disease and esophagitis. 9. Hypothyroidism. 10. Chronic primary insomnia. 11. History of colon cancer and colectomy in 2014. 12. Chronically elevated troponin I levels. 13. Benign essential hypertension. 14. Lumbar spondylosis with chronic lower back pains. HOSPITAL COURSE: The patient was admitted to [facility] after she fell back at home and was not able to get up. The patient had back pains, acute over chronic and she was having difficulty with ambulation with some left elbow and knee pains. The patient was admitted and started on physical therapy and a consult was obtained to [facility] to jail [facility]. In the meantime, she developed tachycardia with a heart rate of up to 170 beats per minute which was rapid ventricular response to atrial fibrillation. The patient was transferred to ICU and treated with Cardizem and digoxin and heart rates have improved. The patient was seen by Dr. Patel Mckinney, the firebrick layer, and cleared for discharge to group home today. 1. Obesity, adult failure to thrive with difficulty with ambulation. The patient working with physical therapy, which will be continued at jail facility [facility]. 2. Type 2 diabetes mellitus. Blood sugars are monitored and treated. Patient on insulin and no concentrated sweet diet. 3. Chronic mixed hyperlipidemia, treated with Lipitor followed with blood testing, CPK liver enzymes and lipids. 4. Benign essential hypertension, treated and controlled. 5. Hypothyroidism, replaced with levothyroxine. 6. Chronic primary insomnia, treated and controlled with trazodone. 7. Chronic lower back pains treated and controlled with hydrocodone which helped her significantly and keeps her more functional. DISCHARGE MANAGEMENT: Digoxin 125 mcg daily, diltiazem CD 240 mg a day, lidocaine patch to affected skin daily, Imdur 30 mg a day, levothyroxine 75 mcg daily, apixaban 5 mg b.i.d., Lipitor 80 mg a day, Dulcolax 5 mg daily p.r.n. for constipation, Lantus insulin 20 units subq daily. No concentrated sweet diet. Losartan 25 mg a day, ferrous sulfate 325 mg every other day, Protonix 40 mg a day, trazodone 50 mg at bedtime p.r.n. for sleep, Vicodin 5/325 mg q.i.d. p.r.n. for pain. [place], [place] DISCHARGE SUMMARY NAME: SARAH PETERS UNIT #: [id number] ROOM: [facility] DOCTOR: CARMELO JAMES MD BIRTHDATE: [birth year] CARMELO JAMES MD CM:AMANDA [phone] CARMELO JAMES MD 08/26/17 1707 interface
--- NOTE | ~2017-08-23 | PR ---
[place], [place] PROGRESS NOTE [id number] UNIT #: [id number] ROOM: [facility] DOCTOR: MERARY FLORENCE DO BIRTHDATE: [birth year] DOS: 08/25/2017 RAPID RESPONSE NOTE Rapid response was called for elevated heart rate. The patient was found to be in AFib, in no acute distress. Heart rate was between 150-180. EKG was ordered. There were ST depressions laterally, which were new compared to prior EKG from 2 days ago. The patient's initial blood pressure was approximately 150/100. She is already on a Cardizem drip, a bolus of 10 was given. A second EEG was ordered. No further changes were noted in the second EKG. The patient was transferred to the ICU. Heart rate decreased to 110-120s, still in AFib, blood pressure is still 150/100. Cardiology was consulted. Cardiac enzymes were ordered. Chest x-ray, CBC, CMP, mag, phos were ordered. The patient was stable beyond heart rate throughout the experience. She had no chest pain or shortness of breath. No dizziness, lightheadedness or altered. MERARY FLORENCE DO CM:JUAN DANIEL [id number] MERARY FLORENCE DO 09/06/17 0859 interface
--- NOTE | ~2017-08-23 | PR ---
[place], [place] PROGRESS NOTE [id number] #: [id number] ROOM: [facility] DOCTOR: MU VILLAVICENCIO MD BIRTHDATE: [birth year] DOS: 08/26/2017 SUBJECTIVE: The patient was seen at her bedside in the intensive care unit today 08/26/2017 for followup of her paroxysmal atrial fibrillation. She is an 82-year-old woman who was recently hospitalized at [facility] in early August 2017 when she presented with altered mental status. She was found to be hypoglycemic, but there was also concern that she had had a transient ischemic attack. She had had a history of paroxysmal atrial fibrillation. Even though she was in sinus rhythm at that time, she was placed on apixaban for further stroke prophylaxis. She was hospitalized on this occasion after she fell at home and could not get up. On admission, she was in sinus rhythm, but after a day or two, she did convert to atrial fibrillation with a rapid ventricular response that was essentially asymptomatic. In the intensive care unit, her rates have been controlled. She showed no signs of an acute myocardial infarction. She feels well now and is anxious to get into rehabilitation. PHYSICAL EXAMINATION: VITAL SIGNS: Today, her pulse is 94 and irregularly irregular. Blood pressure is 140/78. She is afebrile. NECK: Supple. She has no jugular distention. Carotids are full. LUNGS: Respirations are unlabored. Her chest is clear. HEART: Has an irregularly irregular rhythm. She has no murmurs or gallops. ABDOMEN: Soft. EXTREMITIES: Showed no edema. Peripheral pulses are easily palpable bilaterally. IMPRESSION: 1. Paroxysmal atrial fibrillation. Her rate response to atrial fibrillation has now been controlled. 2. Type 2 diabetes mellitus, on insulin. 3. Obesity. 4. Adult failure to thrive. PLAN: I will switch her to a long-acting form of diltiazem once a day. She will continue digoxin and her other medications as scheduled. She will also continue apixaban for stroke prophylaxis. I think that she is stable for discharge to an extended care facility at this time. I thank Dr. Caro for asking our advice regarding her management. [place], [place] PROGRESS NOTE NAME: SARAH PETERS UNIT #: [id number] ROOM: [facility] DOCTOR: MU VILLAVICENCIO MD BIRTHDATE: [birth year] MU VILLAVICENCIO MD CM:PNTRANS [phone] MU VILLAVICENCIO MD 08/26/17 1401 interface
--- NOTE | ~2017-08-23 | PR ---
[place], [place] PROGRESS NOTE NAME: SARAH PETERS [facility] #: [id number] UNIT #: [id number] ROOM: [facility] DOCTOR: CARMELO JAMES MD BIRTHDATE: [birth year] DOS: 08/25/2017 SUBJECTIVE: The patient went into atrial fibrillation with rapid ventricular response during the night and she was treated on an urgent basis. OBJECTIVE: VITAL SIGNS: Blood pressure 124/63, heart rate of 138 beats per minute, breathing 16 times per minute, temperature 98 degrees Fahrenheit. GENERAL APPEARANCE: The patient is alert and oriented times 3, in no visible distress. Obese. HEENT AND NECK: Exam within normal limits. CARDIOVASCULAR SYSTEM: On heart auscultation, heart rate was irregularly irregular in rate and rhythm. LUNGS: Clear to auscultation. ABDOMEN: Soft, nontender. No obvious organomegaly. Bowel sounds are present. EXTREMITIES: Without significant cyanosis or edema. IMPRESSION: 1. Acute tachycardia with chronic atrial fibrillation with rapid ventricular response, being treated in the ICU and cardiology on consult. The patient treated with diltiazem. 2. Adult failure to thrive. The patient lives by herself. She fell down and was unable to get up. The patient [facility] after controlling her heart rate. 3. Type 2 diabetes mellitus. Blood sugars being monitored and treated. 4. Chronic kidney disease stage 3b being monitored closely. 5. Mixed hyperlipidemia, treated with Lipitor. 6. Gastroesophageal reflux disease and esophagitis, treated with Protonix. 7. Hypothyroidism, replaced with levothyroxine. 8. Chronic primary insomnia, treated with trazodone as needed. CARMELO AJMES MD CM:PNTRANS [id number] CARMELO JAMES MD 08/25/17 1306 interface
--- NOTE | ~2017-08-23 | CON ---
[place], [place] REPORT OF CONSULTATION NAME: SARAH PETERS [facility] #: [id number] UNIT #: [id number] ROOM: [facility] DOCTOR: MU VILLAVICENCIO MD BIRTHDATE: [birth year] DOS: 08/25/2017 REASON FOR CONSULTATION: Atrial fibrillation with rapid ventricular response. HISTORY OF PRESENT ILLNESS: The patient is an 82-year-old woman who does have a history of paroxysmal atrial fibrillation. She was recently hospitalized at the [facility] around 08/14/2017 when she presented with an episode of altered mental status. She was found to be hypoglycemic, but there was also a concern that she had a transient ischemic attack. She did not have atrial fibrillation during that hospitalization, but she was placed on a direct oral anticoagulant (apixaban). An echocardiogram done in May of this year had shown normal left ventricular size, wall motion and systolic function with mild concentric left ventricular hypertrophy. Left ventricular systolic function was normal with an ejection fraction of 70%. There was stage 2 diastolic relaxation abnormalities present. The left atrium was mildly dilated. There was mild mitral insufficiency. There was moderate pulmonary hypertension present. The patient presented to the hospital on this occasion because she was at home and fell. She lives alone and was unable to get up. She was having trouble with ambulation along with joint pains. She was therefore brought to the emergency room. In the ER, she was felt to be somewhat dehydrated with acute renal failure. She was therefore admitted to the hospital on 08/23/2017. Last evening, she went into atrial fibrillation with a rapid ventricular response. She was essentially asymptomatic. She was transferred to the intensive care unit and cardiology was asked to assist in her care. PAST MEDICAL HISTORY: Includes: 1. Type 2 diabetes mellitus. 2. Obesity. 3. Paroxysmal atrial fibrillation. 4. History of cancer of the colon, status post partial colectomy in 2014. 5. History of hypothyroidism, on replacement. 6. History of mixed hyperlipidemia. 7. History of hypertension. 8. Adult failure to thrive. MEDICATIONS: Prior to admission, cyanocobalamin 1000 mcg intramuscularly every month, apixaban 5 mg q. 12 hours, atorvastatin 80 mg daily, cholecalciferol 50,000 units weekly, docusate 100 mg daily, ferrous sulfate 325 mg daily, hydrocodone with acetaminophen 1 tablet q.4 hours, isosorbide dinitrate 30 mg daily, levothyroxine 75 mcg daily, lorazepam 0.5 mg at bedtime p.r.n., losartan 25 mg daily, pantoprazole 40 mg daily, Lantus insulin 20 units at bedtime, Lidoderm cream applied p.r.n. to the back and Lidoderm patch applied as needed. ALLERGIES: The patient has no known drug allergies. REVIEW OF SYSTEMS: The patient denies diplopia. She has poor vision, however. She denies focal weakness and does not think that she had a transient ischemic attack on the current admission. She denies nausea or vomiting. She denies [place], [place] REPORT OF CONSULTATION NAME: SARAH PETERS UNIT #: [id number] ROOM: [facility] DOCTOR: MU VILLAVICENCIO MD BIRTHDATE: [birth year] fevers, chills or sweats. She does admit that she is generally weak, but denies focal weakness. She denies abdominal pain. She denies change in bowel or bladder habits. She denies blood in her stools or urine. She denies blood in her mouth or nose. She does have chronic swelling in her legs. She denies fevers, chills, sweats or recent weight change. She denies polydipsia or polyuria. The remainder of the review of systems is negative except as noted above. SOCIAL HISTORY: The patient lives alone. She does not consume alcohol or cigarettes. PHYSICAL EXAMINATION: GENERAL: The patient is an obese white female who is awake, alert and oriented. VITAL SIGNS: Pulse is 76 and irregularly irregular. Blood pressure is 136/60. She is afebrile. She weighs 97.7 kg and has a body mass index of 35.8. HEENT: Normocephalic, atraumatic. Extraocular muscles are intact. Sclerae are clear. Pupils are equal, round and react to light. The oral mucosa is moist. Tongue is midline. NECK: Supple. She has no jugular distention or hepatojugular reflux. Carotids are full. I heard no bruits. She had no neck or supraclavicular masses. She had no thyromegaly. LUNGS: Respirations are unlabored at rest. She has decreased breath sounds at the bases, but no wheezes or rales. She has no presacral edema or chest wall tenderness. CARDIOVASCULAR: Her heart has an irregularly irregular rhythm. There are no murmurs or gallops. The PMI is not displaced. There is no precordial heave, lift or thrill. ABDOMEN: Obese, but otherwise benign, without masses, organomegaly, tenderness or rebound. EXTREMITIES: Showed no edema. Pedal pulses were diminished, but palpable in the feet bilaterally. LABORATORY DATA: I reviewed her electrocardiogram, which showed sinus rhythm on admission. She subsequently converted to atrial fibrillation with a rapid ventricular response, lateral ST changes were seen. They got worse with atrial fibrillation and are probably related to rate. Hemoglobin is 10.2, white count 7700, platelet count 256,000. Sodium is 143, potassium 4.0, chloride 111, CO2 25, BUN 22, creatinine 1.45, serial troponin levels have been minimally elevated at 0.047. IMPRESSION: 1. Paroxysmal atrial fibrillation with rapid ventricular response. The patient was controlled with intravenous diltiazem and will be transitioned to oral diltiazem. She is already on apixaban and we will continue that for stroke prophylaxis. We will also continue digoxin orally to help with control of her heart rate. 2. Type 2 diabetes mellitus, on insulin. 3. Obesity. 4. Adult failure to thrive. [place], [place] REPORT OF CONSULTATION NAME: SARAH PETERS UNIT #: [id number] ROOM: [facility] DOCTOR: MU VILLAVICENCIO MD BIRTHDATE: [birth year] PLAN: We will continue to observe the patient with her other physicians. I will try to wean her off of intravenous diltiazem and place her on oral diltiazem in addition to oral digoxin. We will need to monitor digoxin levels carefully given her recent change in renal function. No other advanced testing is planned at this time from a cardiac standpoint. We thank Dr. Caro for asking our advice regarding the patient's care. MU VILLAVICENCIO MD CM:CONSTR:REPORT OF CONSULTATION 1450 08/25/17 1529 interface
--- NOTE | ~2017-08-23 | WRIGHTHP ---
[place], [place] PATIENT HISTORY AND PHYSICAL EXAM NAME: SARAH PETERS [facility] #: [id number] UNIT #: [id number] ROOM: 409 DOCTOR: CARMELO JAMES MD BIRTHDATE: [birth year] DOS: 08/23/2017 HISTORY OF PRESENT ILLNESS: The patient is an 82-year-old female with a past medical history of; 1. Type 2 diabetes mellitus. 2. Obesity. 3. Lumbar spondylosis and chronic back pains. 4. Benign essential hypertension. 5. Chronic atrial fibrillation. 6. Adult failure to thrive. Patient lives at home. 7. Chronically elevated troponin I level. 8. History of colon cancer and colectomy in 2014. The patient was brought to the Emergency Department after she fell at home and was unable to get up. The patient was standing up out of her recliner and turning when she fell on her back. The patient is having difficulty with ambulation, some left elbow and knee pains. The patient was found to be somewhat dehydrated, weak, unable to ambulate and she lives at home. The patient recommended for admission for physical therapy and placement for half-way because she could not ambulate enough to be discharged to home. After admission, the patient is feeling somewhat better, but quite weak. No chest pains, no shortness of breath, no other GI or urinary symptoms. SYSTEMS REVIEW: LUNGS: No increasing shortness of breath. GASTROINTESTINAL: No nausea, vomiting, diarrhea or constipation. CARDIOVASCULAR: No chest pains or palpitations. FAMILY HISTORY: Noncontributory. HOME MEDICATIONS: Protonix, levothyroxine, Tylenol, trazodone, Lipitor, hydrocodone, lorazepam, losartan and iron. PHYSICAL EXAMINATION: GENERAL APPEARANCE: Alert and oriented x 3, morbidly obese, BMI of 35.8. Generalized weakness and obesity. VITAL SIGNS: Blood pressure 157/58, heart rate 61 beats per minute, breathing 16 times per minute, afebrile. HEENT AND NECK: Otherwise, were downgoing. LUNGS: Clear to auscultation. No wheezing. No rhonchi. CARDIOVASCULAR SYSTEM: Heart rate is regular in rate and rhythm. S1 and S2 normally audible. No significant murmur or any other abnormal cardiac sounds. ABDOMEN: Soft, nontender. No obvious organomegaly. Bowel sounds are present. No obvious herniation. EXTREMITIES: Without significant cyanosis or edema. Warm to touch. CENTRAL NERVOUS SYSTEM: Alert and oriented x 3. Cranial nerves II-XII are intact. Speech is normal. The patient is able to move all extremities. Normal muscle strength. Deep tendon reflexes are equal on both sides. Plantars were downgoing. LABORATORY DATA: Urinalysis showing minimal signs of urine infection. We will [place], [place] PATIENT HISTORY AND PHYSICAL EXAM NAME: SARAH PETERS [facility] #: [id number] UNIT #: [id number] ROOM: [facility] DOCTOR: CARMELO JAMES MD BIRTHDATE: [birth year] do urine cultures. BUN and creatinine 24 and 2. Blood sugar 167. Hemoglobin 9.5. No leukocytosis. No fractures on knee and left forearm x-rays, CT of the head and cervical spine was also performed without any acute injury. IMPRESSION: 1. Old age of 82 years and generalized weakness, obesity and adult failure to thrive with fall at home, weakness and difficulty with ambulation. Physical therapy has been consulted and will try to get her to half-way facility for rehabilitation before she is considered for home discharge. 2. Chronic kidney disease stage 4, some dehydration and elevation of BUN and creatinine to be treated with hydration. The patient to be encouraged to eat and BUN and creatinine will be followed serially. 3. Anemia of chronic disease. Hemoglobin of 9.5 and stable. 4. Obesity. The patient to work with dietary. 5. Type 2 diabetes mellitus. Blood sugars will be monitored and treated. 6. Chronic atrial fibrillation. Heart rate to be monitored and controlled, follow closely. 7. Mixed hyperlipidemia, treated with Lipitor. 8. Benign essential hypertension, treated and controlled. 9. Hypothyroidism, treated with levothyroxine. 10. Chronic primary insomnia, to be treated with trazodone. 11. Lumbar spondylosis, chronic lower back pain. The patient is requesting to be continued on hydrocodone for severe lower back pains. CARMELO JAMES MD CM:HISPHYS:PATIENT HISTORY AND PHYSICAL EXAMINATION 1 4 CARMELO JAMES MD 08/24/17923 interface
[~2017-08-23 18:53] MED LIST changes: +IRON325 M1 PO; +LANTUS SOL100 UNIT/1 SQ
[2017-08-23 18:54] VITALS: BP 159/56
[2017-08-23 20:00] VITALS: BP 152/56
[2017-08-23 20:33] LABS: BASO % 0.3 % (0.0-1.0); EOS # 0.1 10*3/uL (0.0-0.4); EOS % 1.6 % (1.0-4.0); HEMATOCRIT 32.3 % (37.0-47.0); HEMOGLOBIN 9.5 g/dl (12.0-16.0); LYMPH % 26.9 % (27.0-41.0); MEAN CELL VOLUME 95.3 fl (81.0-99.0); MEAN CORPUSCULAR HGB CONC 29.4 g/dl (33.0-37.0); MEAN PLATELET VOLUME 11.5 fl (9.6-12.3); MONO # 0.5 10*3/uL (0.1-1.0); MONO % 6.1 % (3.0-9.0); NEUT # 4.8 10*3/uL (2.3-7.9); PLATELET COUNT AUTOMATED 262 10*3/uL (130-400); RED BLOOD COUNT 3.39 10*6/uL (4.10-5.10); WHITE BLOOD COUNT 7.4 10*3/uL (4.8-10.8)
[2017-08-23 20:41] VITALS: BP 156/60
[2017-08-23 20:46] LABS: ACT PARTIAL THROMBO TIME 23.4 SECONDS (20.8-31.5)
[2017-08-23 20:50] LABS: ALBUMIN 3.2 gm/dl (3.1-4.5); CREATININE 2.04 mg/dL (0.55-1.02); POTASSIUM 4.4 mmol/L (3.5-5.1); TOTAL PROTEIN 7.8 gm/dL (6.4-8.2); TROPONIN I 0.033 ng/ml (<0.045)
[2017-08-23 21:45] VITALS: BP 156/60
[2017-08-23 21:48] LABS: BILIRUBIN 1+ (NEGATIVE); BLOOD 3+ (NEGATIVE); CLARITY CLOUDY (CLEAR); COLOR YELLOW (YELLOW); GLUCOSE NEGATIVE (NEGATIVE); KETONE NEGATIVE (NEGATIVE); LEUKO ESTERASE TRACE (NEGATIVE); NITRITE NEGATIVE (NEGATIVE); PH 5.5 (5.0-9.0); SPECIFIC GRAVITY >= 1.030 (1.005-1.030); UROBILINOGEN 0.2 E.U./dl (0.2-1.0)
[2017-08-23 21:58] LABS: BACTERIA 2+; EPITHELIAL CELLS TNTC; MUCOUS 1+; WBC 16-20 wbc/hpf (0-5)
[2017-08-23 22:10] VITALS: BP 178/56
[2017-08-23] MEDS ORDERED: TRAZODONE50 MG PO (22:38)
[2017-08-23] MEDS ORDERED: TYLENOL EXTRA500 MG PO (22:38)
[2017-08-24 00:16] VITALS: BP 157/58
[2017-08-24 08:00] VITALS: BP 156/68
[2017-08-24 12:00] VITALS: BP 156/68
[2017-08-24 16:00] VITALS: BP 149/46
[2017-08-24 20:45] VITALS: BP 152/38
[2017-08-25] VITALS (11 sets, daily range): BP systolic 116–180; BP diastolic 45–100
[2017-08-25 05:19] LABS: ALBUMIN 2.8 gm/dl (3.1-4.5); CREATININE 1.45 mg/dL (0.55-1.02); PHOSPHOROUS 3.8 mg/dL (2.5-4.9); TOTAL PROTEIN 7.2 gm/dL (6.4-8.2)
[2017-08-25 05:27] LABS: BASO % 0.4 % (0.0-1.0); EOS # 0.2 10*3/uL (0.0-0.4); HEMATOCRIT 33.9 % (37.0-47.0); HEMOGLOBIN 10.2 g/dl (12.0-16.0); LYMPH # 2.9 10*3/uL (1.3-4.4); LYMPH % 38.3 % (27.0-41.0); MEAN CELL VOLUME 93.6 fl (81.0-99.0); MEAN CORPUSCULAR HGB 28.2 pg (27.0-31.0); MEAN CORPUSCULAR HGB CONC 30.1 g/dl (33.0-37.0); MEAN PLATELET VOLUME 11.2 fl (9.6-12.3); MONO # 0.4 10*3/uL (0.1-1.0); MONO % 4.8 % (3.0-9.0); NEUT # 4.1 10*3/uL (2.3-7.9); NEUT % 53.2 % (47.0-73.0); PLATELET COUNT AUTOMATED 259 10*3/uL (130-400); RED BLOOD COUNT 3.62 10*6/uL (4.10-5.10); RED CELL DISTRI WIDTH 20.9 % (0-14.5); WHITE BLOOD COUNT 7.7 10*3/uL (4.8-10.8)
[2017-08-25] MEDS ORDERED: LANTUS SOL100 UNIT/1 SQ (10:49)
[2017-08-25] MEDS ORDERED: VITAMIN D50000 UNIT PO (10:51)
[2017-08-25] MEDS ORDERED: ELIQUIS5 M1 PO (10:55)
[2017-08-25] MEDS ORDERED: LIDODERM1 EACH T (10:57)
[2017-08-25] MEDS ORDERED: LIDOCAINE5 GM T (10:59)
[2017-08-25] MEDS ORDERED: B121000 MCG/2 IM (11:00)
[2017-08-25] MEDS ORDERED: ISOSORBIDE DINI30 MG PO (11:01)
[2017-08-25] MEDS ORDERED: COLACE100 MG PO (11:02)
[2017-08-26] VITALS: BP 140/70
[2017-08-26 04:00] VITALS: BP 144/91
[2017-08-26 08:00] VITALS: BP 140/78
[2017-08-26 12:00] VITALS: BP 145/82
[2017-08-26 16:00] VITALS: BP 98/48
[2017-08-26] MEDS ORDERED: TRAZODONE50 MG PO (16:25)
[2017-08-26] MEDS ORDERED: DILTIAZEM CD240 MG PO (16:25)
[2017-08-26] MEDS ORDERED: HYDROCODONE-AC1 EAC2 PO ×2 (16:25→16:36)
[2017-08-26] MEDS ORDERED: Lanoxin PO (16:36)
== END 2017-08-26 17:55 | disposition other institution (70) | DRG 684 ==
LOC: ED 18:53 → 4E 21:29 → ICCU 21:29 → EDHOLD 21:29 → 4E 21:53 → ICCU 08-25 05:02
PROVIDERS: Internal Medicine; Student in an Organized Health Care Education/Training Program
DX: N17.9 Acute kidney failure, unspecified (principal); I48.0 Paroxysmal atrial fibrillation; E11.22 Type 2 diabetes mellitus with diabetic chronic kidney disease; E86.0 Dehydration; I48.2 Chronic atrial fibrillation; D63.8 Anemia in other chronic diseases classified elsewhere; E11.649 Type 2 diabetes mellitus with hypoglycemia without coma; E03.9 Hypothyroidism, unspecified; E66.9 Obesity, unspecified; F41.9 Anxiety disorder, unspecified; E78.2 Mixed hyperlipidemia; G89.29 Other chronic pain; J44.9 Chronic obstructive pulmonary disease, unspecified; R26.2 Difficulty in walking, not elsewhere classified; M19.90 Unspecified osteoarthritis, unspecified site; Z96.1 Presence of intraocular lens; I12.9 Hypertensive chronic kidney disease with stage 1 through stage 4 chronic kidney disease, or unspecified chronic kidney disease; L40.9 Psoriasis, unspecified; M47.896 Other spondylosis, lumbar region; F51.04 Psychophysiologic insomnia; N18.4 Chronic kidney disease, stage 4 (severe); W18.39XA Other fall on same level, initial encounter; R62.7 Adult failure to thrive; M25.562 Pain in left knee; Z85.038 Personal history of other malignant neoplasm of large intestine; Z86.73 Personal history of transient ischemic attack (TIA), and cerebral infarction without residual deficits; Z90.49 Acquired absence of other specified parts of digestive tract; Z90.710 Acquired absence of both cervix and uterus; Z87.891 Personal history of nicotine dependence; Z98.49 Cataract extraction status, unspecified eye; Z79.899 Other long term (current) drug therapy; Z79.4 Long term (current) use of insulin; Z81.1 Family history of alcohol abuse and dependence; Z82.3 Family history of stroke; Z80.9 Family history of malignant neoplasm, unspecified; Z82.49 Family history of ischemic heart disease and other diseases of the circulatory system; Y93.89 Activity, other specified; Y92.89 Other specified places as the place of occurrence of the external cause; Y99.8 Other external cause status; Z79.84 Long term (current) use of oral hypoglycemic drugs

== ENCOUNTER 2017-09-23 14:54 | Inpatient (IN) | payer OTHER ==
[~2017-09-23] VITALS: Ht 165.1 cm; Wt 98.7 kg
--- NOTE | ~2017-09-23 | EKG ---
[place], [place] ELECTROCARDIOGRAM REPORT NAME: SARAH PETERS UNIT #: [id number] ROOM: 521 DOCTOR: JANEANY DRAFT REPORT BIRTHDATE: [birth year] [facility] Test Date: 2017-09-23 Test Time: 15:40:44 Pat Name: SARAH PETERS Department: Room: Gender: F Government Affairs Fellow: : 1935 Requested By: LISA DUPONT PA-C Order Number: [id number] Reading MD: Sergio Valentin MD Measurements Intervals [place] Rate: 106 P: GA: QRS: -9 QRSD: 97 T: 218 QT: 344 QTc: 457 Interpretive Statements Atrial fibrillation Anterior infarct, old Borderline repolarization abnormality Abnormal EKG. Electronically Signed On 09-23-2017 16:26:50 PDT by Sergio Valentin MD CM:EKGRPT:ELECTROCARDIOGRAM REPORT 1540 1626 LISA DUPONT PA-C EPIPHANY DRAFT REPORT LISA DUPONT PA-C
--- NOTE | ~2017-09-23 | WRIGHTHP ---
[place], [place] PATIENT HISTORY AND PHYSICAL EXAM NAME: SARAH PETERS [facility] #: [id number] UNIT #: [id number] ROOM: 521 DOCTOR: SOUMYA FLORENCE MD BIRTHDATE: [birth year] DOS: 09/23/2017 HISTORY OF PRESENT ILLNESS: The patient is 82 years old patient, had a fight with her son yesterday and the argument got quite heated so she got upset and decided to come into the hospital with some complaints of shortness of breath. This morning the patient states that she feels fine. She does not know what really happened yesterday. She in the Emergency Room, had complained of a variety of symptoms including dizziness, shortness of breath, chest pain, abdominal pain, constipation and that she was just not feeling good. This morning she does not have any complaints. Denies any chest pains or palpitations, does not have any fever or chills, does not have any nausea, any emesis. PAST MEDICAL HISTORY: Significant for, 1. Chronic atrial fibrillation with long-term use of anticoagulants. 2. Type 2 diabetes mellitus, insulin-dependent. 3. Mixed hyperlipidemia. 4. Chronic kidney disease. 5. Benign hypertension. 6. History of chest pain with negative workup. The last stress test was July 2016, which was unremarkable. 7. Chronic elevation of troponin. SOCIAL HISTORY: Nonsmoker, does not use any alcohol. FAMILY HISTORY: Noncontributory. MEDICATIONS: Atorvastatin, Eliquis, vitamin D, digoxin, diltiazem, iron, [place], isosorbide, levothyroxine, losartan, omeprazole, trazodone, insulin. As per nursing staff, the patient has not taken several of her medications because the copay was too high including Eliquis and Cardizem. PHYSICAL EXAMINATION: GENERAL: The patient is awake and alert and oriented, in no distress. VITAL SIGNS: Graphic trend shows a pressure of 142/70, pulse of 76, respirations 14, afebrile. LUNGS: Diminished breath sounds. No wheezes, rales or rhonchi heard. HEART: Irregular, heart rate in the 70s, controlled. ABDOMEN: Obese, soft, nontender. EXTREMITIES: Without any edema. ASSESSMENT AND PLAN: 1. The patient who had complaints of chest pain and shortness of breath. A troponin was done. This is slightly on the high side, but these are chronically elevated in the patient most likely from underlying kidney disease and a Cardiology consultation was obtained. The patient will continue to take her home medications. 2. Chronic atrial fibrillation, controlled heart rate. Apparently, the Eliquis is too expensive because it is a bigger copay, so we will try to give her Xarelto. [place], [place] PATIENT HISTORY AND PHYSICAL EXAM NAME: SARAH PETERS [facility] #: [id number] UNIT #: [id number] ROOM: 521 DOCTOR: SOUMYA FLORENCE MD BIRTHDATE: [birth year] 3. Type 2 diabetes mellitus, insulin-dependent, controlled. 4. Major depression, add a low dose of antidepressant. SOUMYA FLORENCE MD CM:HISPHYS:PATIENT HISTORY AND PHYSICAL EXAMINATION 0735 [id number] SOUMYA FLORENCE MD 09/24/17 0748 interface
[~2017-09-23 14:54] MED LIST changes: +B121000 MCG/2 IM; +COLACE100 MG PO; +DILTIAZEM CD240 MG PO; +HYDROCODONE-AC1 EAC2 PO; +LIDOCAINE5 GM T; +LIDODERM1 EACH T; +Lanoxin PO; +TRAZODONE50 MG PO; +TYLENOL EXTRA500 MG PO; +VITAMIN D50000 UNIT PO
[2017-09-23 14:56] VITALS: BP 112/55
[2017-09-23 15:50] LABS: BASO % 0.3 % (0.0-1.0); EOS # 0.1 10*3/uL (0.0-0.4); EOS % 0.8 % (1.0-4.0); HEMOGLOBIN 8.8 g/dl (12.0-16.0); LYMPH # 1.5 10*3/uL (1.3-4.4); LYMPH % 20.5 % (27.0-41.0); MEAN CELL VOLUME 98.6 fl (81.0-99.0); MEAN CORPUSCULAR HGB 29.9 pg (27.0-31.0); MEAN CORPUSCULAR HGB CONC 30.3 g/dl (33.0-37.0); MEAN PLATELET VOLUME 11.7 fl (9.6-12.3); MONO # 0.3 10*3/uL (0.1-1.0); MONO % 4.7 % (3.0-9.0); NEUT # 5.2 10*3/uL (2.3-7.9); NEUT % 73.3 % (47.0-73.0); PLATELET COUNT AUTOMATED 194 10*3/uL (130-400); RED BLOOD COUNT 2.94 10*6/uL (4.10-5.10); RED CELL DISTRI WIDTH 18.6 % (0-14.5); WHITE BLOOD COUNT 7.1 10*3/uL (4.8-10.8)
[2017-09-23 15:58] LABS: INTERNATIONAL NORM RATIO 1.1 (2.0-3.5)
[2017-09-23 16:06] LABS: ALBUMIN 3.1 gm/dl (3.1-4.5); CREATININE 1.61 mg/dL (0.55-1.02); POTASSIUM 4.3 mmol/L (3.5-5.1); TOTAL PROTEIN 7.2 gm/dL (6.4-8.2)
[2017-09-23 16:09] LABS: TROPONIN I 0.05 ng/ml (<0.045)
[2017-09-23 17:00] VITALS: BP 121/61
[2017-09-23] MEDS ORDERED: ATIVAN0.5 MG PO (17:16)
[2017-09-23] MEDS ORDERED: GLUCOTROL10 MG PO (17:18)
[2017-09-23 17:43] VITALS: BP 124/81
[2017-09-23] MEDS ORDERED: LANTUS SOL100 UNIT/1 SC (17:59)
[2017-09-23 20:00] VITALS: BP 101/60
[2017-09-24] VITALS: BP 117/89
[2017-09-24 00:22] LABS: BILIRUBIN NEGATIVE (NEGATIVE); BLOOD 3+ (NEGATIVE); CLARITY SL CLOUDY (CLEAR); COLOR YELLOW (YELLOW); GLUCOSE NEGATIVE (NEGATIVE); KETONE NEGATIVE (NEGATIVE); LEUKO ESTERASE NEGATIVE (NEGATIVE); NITRITE NEGATIVE (NEGATIVE); PH 5.5 (5.0-9.0); UROBILINOGEN 0.2 E.U./dl (0.2-1.0)
[2017-09-24 00:35] LABS: EPITHELIAL CELLS 35-40
[2017-09-24 00:36] LABS: BACTERIA 1+; RBC TNTC rbc/hpf (0-2)
[2017-09-24] MEDS ORDERED: DIGOXIN125 MCG PO (05:15)
[2017-09-24] MEDS ORDERED: PRILOSEC20 M1 PO (05:16)
[2017-09-24] MEDS ORDERED: XARE15TA PO (07:38)
[2017-09-24] MEDS ORDERED: CYMBALTA20 M1 PO (07:38)
[2017-09-24 08:00] VITALS: BP 114/76
== END 2017-09-24 11:15 | disposition home or self-care (01) | DRG 313 ==
LOC: ED 14:54 → 5E 17:06 → EDHOLD 17:06 → 5E 17:23
PROVIDERS: Physician Assistant
DX: R07.89 Other chest pain (principal); E11.22 Type 2 diabetes mellitus with diabetic chronic kidney disease; I48.0 Paroxysmal atrial fibrillation; I48.2 Chronic atrial fibrillation; F32.9 Major depressive disorder, single episode, unspecified; N18.9 Chronic kidney disease, unspecified; I12.9 Hypertensive chronic kidney disease with stage 1 through stage 4 chronic kidney disease, or unspecified chronic kidney disease; E78.5 Hyperlipidemia, unspecified; D64.9 Anemia, unspecified; F41.9 Anxiety disorder, unspecified; E03.9 Hypothyroidism, unspecified; Z96.1 Presence of intraocular lens; J44.9 Chronic obstructive pulmonary disease, unspecified; G89.29 Other chronic pain; M54.5 Low back pain; M54.9 Dorsalgia, unspecified; Z85.038 Personal history of other malignant neoplasm of large intestine; Z86.73 Personal history of transient ischemic attack (TIA), and cerebral infarction without residual deficits; Z90.49 Acquired absence of other specified parts of digestive tract; Z98.49 Cataract extraction status, unspecified eye; Z79.01 Long term (current) use of anticoagulants; Z79.4 Long term (current) use of insulin; Z90.710 Acquired absence of both cervix and uterus; Z87.891 Personal history of nicotine dependence; Z82.3 Family history of stroke; Z82.49 Family history of ischemic heart disease and other diseases of the circulatory system; Z82.0 Family history of epilepsy and other diseases of the nervous system; Z81.1 Family history of alcohol abuse and dependence

== ENCOUNTER 2018-07-02 13:44 | Inpatient (IN) | payer OTHER ==
[~2018-07-02] VITALS: Ht 166.3 cm; Wt 84.5 kg
--- NOTE | ~2018-07-02 | PR ---
[place], [place] PROGRESS NOTE NAME: SARAH PETERS [facility] #: [id number] UNIT #: [id number] ROOM: 510 DOCTOR: CARMELO JAMES MD BIRTHDATE: [birth year] DOS: 07/03/2018 SUBJECTIVE: The patient with [id number] abdominal pains. OBJECTIVE: VITAL SIGNS: Blood pressure 133/52, breathing 18 times per minute, 72 beats per minute heart rate and 98 degrees Fahrenheit temperature. GENERAL APPEARANCE: The patient is alert and oriented x 3, in no visible distress, except for obesity. HEENT AND NECK: Exam within normal limits. CARDIOVASCULAR SYSTEM: Heart rate is regular in rate and rhythm. S1 and S2 normally audible. LUNGS: Clear to auscultation. ABDOMEN: Soft, nontender. No obvious organomegaly. Bowel sounds are present. EXTREMITIES: Without significant cyanosis or edema. IMPRESSION: 1. Lower abdominal pains with colitis at the splenic flexure going for endoscopy by Dr. Alvarez tomorrow for further evaluation. There was some suspicion of colonic cancer because of local lymph node enlargement. Dr. Alvarez to follow. Abdominal pains treated with hydrocodone. The patient is already on it. The patient in no distress. 2. Chronic atrial fibrillation, anticoagulated with Xarelto. 3. Gastroesophageal reflux disease and esophagitis, asymptomatic with omeprazole. 4. Benign essential hypertension, being treated and controlled. 5. Coronary artery disease of pechanga vessels without any chest pain. 6. Major depression, recurrent, moderate, treated and controlled with Cymbalta. 7. Chronic primary insomnia, treated with trazodone. CARMELO JAMES MD CM:PNTRANS [id number] CARMELO JAMES MD 07/04/18 0237 interface
--- NOTE | ~2018-07-02 | O ---
[place], [place] OPERATIVE NOTE NAME: SARAH PETERS UNIT #: [id number] ROOM: 510 DOCTOR: JEFFERSON OMER,CORINE BIRTHDATE: [birth year] DOS: 07/04/2018 INDICATION FOR PROCEDURE: The patient has presented with chief complaint of abdominal pain, anemia, history of colonic carcinoma, undergoing investigation. PROCEDURE: Today's procedure part of investigation is panendoscopy and colonoscopy. PREMEDICATION: Propofol. SCOPE: Olympus forward-viewing gastroscope Q10 video. REPORT: After putting the patient in left lateral position and application of lubricant to the scope, the scope was introduced. Thereafter, under direct visualization, advanced through the length of esophagus without difficulty. Esophagus cervicothoracic distally carefully examined. Gastric pouch was entered. Mild gastritis seen. Gastric erosion noticed. Duodenal bulb, second and third part within normal limits. Antral biopsy obtained. The patient extubated and tolerated the procedure well. IMPRESSION: Gastric erosions, small hiatal hernia. There is no source of active bleeding. PLAN AND DISCUSSION: We are going to proceed with colonoscopy. PROCEDURE #2: INDICATION FOR PROCEDURE: The patient has presented with history of colonic carcinoma in the past, undergoing investigation. Abnormal CT scan. PROCEDURE: Today's procedure part of investigation is colonoscopy plus biopsy. PREMEDICATION: Propofol. SCOPE: Olympus forward-viewing colonoscope 10L video. REPORT: After putting the patient in left lateral position and application of lubricant to the scope, the scope was introduced. Thereafter, under direct visualization, advanced through the length of colon without difficulty. Concentric carcinoma at the splenic flexure was noticed. However, we managed to negotiate the scope through it. Up to the point that I get to the level of about hepatic flexure, another large concentric carcinoma was biopsied, photographed. Scope was withdrawn back to the splenic flexure, biopsied; so we have to site of carcinoma, one at the splenic flexure, one at hepatic flexure. PLAN AND DISCUSSION: I am going to organize a CT scan of the abdomen and pelvis with contrast and ruling out metastatic lesion to multiorgan. Creatinine is going to be checked to ensure a possibility of contrast usage after aggressive hydration by tomorrow. [place], [place] OPERATIVE NOTE NAME: SARAH PETERS UNIT #: [id number] ROOM: [facility] DOCTOR: CORINE PAULINO MD BIRTHDATE: [birth year] CORINE PAULINO MD CM:OPRECORD:OPERATIVE NOTE [id number] CORINE PAULINO MD 07/05/18 0620 interface
--- NOTE | ~2018-07-02 | CON ---
[place], [place] REPORT OF CONSULTATION NAME: SARAH EPTERS [facility] #: [id number] UNIT #: [id number] ROOM: 510 DOCTOR: JEFFERSON OMERTIFFANYMARYLOU BIRTHDATE: [birth year] DOS: 07/04/2018 HISTORY OF PRESENT ILLNESS: This is an 83-year-old patient who has presented with chief complaint of abdominal pain, confused to present any history and has been undergoing investigation. Only past medical history associated is colonic carcinoma. Medication list has been reviewed. Therefore, it means the patient with the history of constipation, apparently taking Colace, on metoprolol therefore means hypertension and Eliquis means dysrhythmias or coronary artery disease. She cannot produce much history. PAST SURGICAL HISTORY: Segmental colon resection apparently. Cataracts and cholecystectomy. Other data that is confirmed from the medical record, systemic hypertension, paroxysmal atrial fibrillation, psoriasis, syncope, transient ischemic attack, hard of hearing, diabetes mellitus, chronic obstructive pulmonary disease, back pain. SOCIAL HISTORY: Nonsmoker, nonalcohol consumer. FAMILY HISTORY: Supportive family. REVIEW OF SYSTEMS: HEENT: Denies double vision or blurred vision. RESPIRATORY: Denies shortness of breath. CARDIOVASCULAR: Denies chest pain. DIGESTIVE SYSTEM: Nonspecific abdominal pain. PHYSICAL EXAMINATION: VITAL SIGNS: Stable. HEENT: Head normocephalic and nontraumatic. Mouth and buccal mucosa benign. NECK: Supple. No thyromegaly. CHEST: Symmetric anatomy, equal expansion. No wheeze, no rhonchi. Chronic obstructive pulmonary disease pattern. HEART: Atrial fibrillation, moderate ventricular response. ABDOMEN: Soft. No hepato-organomegaly. Bowel sounds present. No pulsatile mass. EXTREMITIES: No cyanosis, no pedal edema. NEUROLOGIC: Alert and slow orientation. Hard of hearing. DIAGNOSTIC DATA: Labs reviewed, records reviewed. CT scan of the abdomen has been reviewed. Focal irregular thickening seen in the splenic flexure and also; however, given the presence of free colonic lymphadenopathy one is concerned for underlying colonic neoplasm. CT scan of the head has been obtained, chronic changes. No intracranial metastasis. Urine culture has been negative. CBC differential anemic, H and H of 9 and 31. Labs reviewed, records reviewed. IMPRESSION: Anemia, age of 83, history of colonic carcinoma, one is concerned about recurrence carcinoma, metastasis or otherwise. [place], [place] REPORT OF CONSULTATION NAME: SARAH PETERS UNIT #: [id number] ROOM: 510 DOCTOR: JEFFERSON OMER,CORINE BIRTHDATE: [birth year] OTHER ADJUNCTIVE DIAGNOSES: As outlined in paragraph of past medical and surgical history. PLAN: We are organizing EGD and colonoscopy. CORINE PAULINO MD CM:CONSTR:REPORT OF CONSULTATION 1904 07/05/18 0536 interface
--- NOTE | ~2018-07-02 | PR ---
[place], [place] PROGRESS NOTE NAME: SARAH PETERS [facility] #: [id number] UNIT #: [id number] ROOM: 510 DOCTOR: CARMELO JAMES MD BIRTHDATE: [birth year] DOS: 07/05/2018 SUBJECTIVE: The patient with persisting abdominal pains. OBJECTIVE: VITAL SIGNS: Blood pressure 138/61, heart rate 74 beats per minute, breathing 16 times per minute, temperature 98.3 degrees Fahrenheit. GENERAL APPEARANCE: Generalized weakness. HEENT AND NECK: Exam within normal limits. CARDIOVASCULAR SYSTEM: Heart rate is regular in rate and rhythm. S1 and S2 normally audible. LUNGS: Clear to auscultation. ABDOMEN: Soft, nontender. No obvious organomegaly. Bowel sounds are present. EXTREMITIES: Without significant cyanosis or edema. IMPRESSION AND PLAN: 1. The patient with colon cancer at the splenic flexure, status post biopsy by Dr. Alvarez. She is going for a CT scan of the abdomen and pelvis with IV contrast if possible tomorrow. 2. Chronic atrial fibrillation, anticoagulation with Xarelto was held for the procedure. 3. Gastroesophageal reflux disease and esophagitis, asymptomatic with omeprazole. 4. Benign essential hypertension, treated and controlled. 5. Type 2 diabetes mellitus. Blood sugars being monitored and treated. The patient is on insulin. 6. Hypothyroidism, treated with levothyroxine. 7. Chronic primary insomnia, treated with trazodone. 8. Coronary artery disease of [place] vessels without chest pains. The patient is on isosorbide. CARMELO JAMES MD CM:PNTRANS 14 [phone] CARMELO JAMES MD 07/05/18 2336 interface
--- NOTE | ~2018-07-02 | WRIGHTHP ---
[place], [place] PATIENT HISTORY AND PHYSICAL EXAM NAME: SARAH PETERS UNIT #: [id number] ROOM: 510 DOCTOR: CARMELO JAMES MD BIRTHDATE: [birth year] DOS: 07/02/2018 HISTORY OF PRESENT ILLNESS: 1. The patient is an 83-year-old female with a past medical history of chronic atrial fibrillation. 2. Type 2 diabetes mellitus. 3. Obesity. 4. Adult failure to thrive. 5. 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 6. Mixed hyperlipidemia. 7. Gastroesophageal reflux disease and esophagitis. 8. Hypothyroidism. 9. Chronic primary insomnia. 10. History of colon cancer and colectomy in 2014. 11. Chronically elevated troponin I levels. 12. Benign essential hypertension. 13. Lumbar spondylosis and chronic lower back pains. The patient presented to the Emergency Department with lower abdominal pains. No nausea, vomiting, diarrhea, constipation. The pains were progressively getting worse and she was found to have colitis at the splenic flexure on CT of the abdomen and although there were some pericolonic lymph nodes suspicious for colonic neoplasm. LABORATORY DATA: BUN and creatinine 20 and 1.4, sugar of 285. Hemoglobin 9.4. IMPRESSION: 1. The patient has colitis at the splenic flexure, but some local lymph node enlargement suspicious for colonic cancer. I am consulting Dr. Alvarez to follow and the patient continued on hydrocodone for pain control. 2. Chronic atrial fibrillation. The patient anticoagulated with Xarelto, which is being continued. 3. Gastroesophageal reflux disease and esophagitis, treated and asymptomatic with omeprazole. 4. Benign essential hypertension, treated and controlled. 5. Coronary artery disease of [place] vessels, treated with isosorbide. The patient without chest pain. 6. Major depression, recurrent, moderate, treated and controlled with Cymbalta. 7. Hypothyroidism, replaced with levothyroxine. 8. Chronic primary insomnia, treated and controlled with trazodone. [place], [place] PATIENT HISTORY AND PHYSICAL EXAM NAME: SARAH PETERS UNIT #: [id number] ROOM: 510 DOCTOR: CARMELO JAMES MD BIRTHDATE: [birth year] CARMELO JAMES MD CM:HISPHYS:PATIENT HISTORY AND PHYSICAL EXAMINATION 43 03 CARMELO JAMES MD 07/02/18 2003 interface
--- NOTE | ~2018-07-02 | WRIGHTHP ---
[place], [place] PATIENT HISTORY AND PHYSICAL EXAM NAME: SARAH PETERS UNIT #: [id number] ROOM: 510 DOCTOR: CORINE PAULINO MD BIRTHDATE: [birth year] DOS: 07/02/2018 HISTORY OF PRESENT ILLNESS: An 83-year-old patient who has presented with abdominal pain, change in bowel habit, underwent colonoscopic evaluation, was found to have what appears to have 2 sites of carcinoma growth, 1 at the splenic flexure, [address] scan is consistent with colitis as well. Biopsy has been obtained. CT scan with contrast has been obtained. Mucosal thickening has been reported. PAST MEDICAL HISTORY: Obesity and hypertension. PAST SURGICAL HISTORY: Cholecystectomy, segmental colon resection, and cataracts. REVIEW OF SYSTEMS: HEENT: Denies double vision or blurred vision. RESPIRATORY: Denies acute shortness of breath. CARDIOVASCULAR: Denies acute chest pain. DIGESTIVE SYSTEM: No hematemesis, no hematochezia. PHYSICAL EXAMINATION: VITAL SIGNS: Stable. HEENT: Benign. NECK: Supple, no thyromegaly, no cervical lymphadenopathy. CHEST: Symmetric anatomy, equal expansion and decreased air entry in general. HEART: Normal sinus rhythm, no gallop, no murmur. ABDOMEN: Soft. No hepato-organomegaly, obese. No pulsatile mass. EXTREMITIES: No cyanosis, no pedal edema. NEUROLOGIC: Alert and oriented to time, place, and person. IMPRESSION: Colonic carcinoma at 2 sites, status post biopsy, status post CT scan with contrast. PLAN AND DISCUSSION: I have discussed the case with the daughter. Apparently, they came in having surgery in [place], arrangement is going to be made. Thank you very much indeed. [place], [place] PATIENT HISTORY AND PHYSICAL EXAM NAME: SARAH PETERS UNIT #: [id number] ROOM: 510 DOCTOR: CORINE PAULINO MD BIRTHDATE: [birth year] CORINE PAULINO MD CM:HISPHYS:PATIENT HISTORY AND PHYSICAL EXAMINATION 2243 CORINE PAULINO MD 07/06/18 2242 interface
--- NOTE | ~2018-07-02 | DS ---
[place], [place] DISCHARGE SUMMARY NAME: SARAH PETERS UNIT #: [id number] ROOM: 510 DOCTOR: CARMELO JAMES MD BIRTHDATE: [birth year] DOS: 07/07/2018 DISCHARGE DIAGNOSES: 1. Colon cancer at splenic flexure with negative CT scan of the abdomen and pelvis. The patient sent to [place] for evaluation for surgery by Dr. Alvarez. 2. Abdominal pains from colon cancer. 3. Coronary artery disease of the [place] vessels. 4. Chronic primary insomnia. 5. Hypothyroidism. 6. Type 2 diabetes mellitus. 7. Benign essential hypertension. 8. Gastroesophageal reflux disease and esophagitis. 9. Chronic atrial fibrillation. The patient anticoagulated with Xarelto. 10. Adult failure to thrive and old age. 11. Chronic kidney disease stage IIIB. 12. Mixed hyperlipidemia. 13. History of colon cancer and colectomy in 2014. 14. Lumbar spondylosis, chronic lower back pains. The patient was admitted and treated with abdominal pains. Ultimately, she underwent colonoscopy and we found suspected colon cancer at the splenic flexure at [address] Alvarez and finally Dr. Alvarez transferred her to be evaluated for surgery. CT scan of the abdomen and pelvis did not show any obvious distant metastasis. Chronic atrial fibrillation. Xarelto was held back because of surgical procedures, heart rate controlled. Gastroesophageal reflux disease and esophagitis, treated and asymptomatic with omeprazole. Benign essential hypertension, treated and controlled. Coronary artery disease of the [place] vessels without any chest pains. The patient remains on isosorbide. Major depression, recurrent, moderate, treated and controlled with Cymbalta. Hypothyroidism, replaced with levothyroxine. Chronic primary insomnia, treated and controlled with trazodone. LABORATORY DATA: CT scan of the abdomen and pelvis as mentioned above. BUN and creatinine 19 and 1.1 with hydration. Hemoglobin 9.3. [place], [place] DISCHARGE SUMMARY NAME: SARAH PETERS UNIT #: [id number] ROOM: 510 DOCTOR: CARMELO JAMES MD BIRTHDATE: [birth year] CARMELO JAMES MD CM:AMANDA [id number] CARMELO JAMES MD 07/08/18 0408 interface
--- NOTE | ~2018-07-02 | POSTOPNOTE ---
[place], [place] POSTOPERATIVE PROGRESS NOTE NAME: SARAH PETERS UNIT #: [id number] ROOM: [facility] DOCTOR: CORINE PAULINO MD BIRTHDATE: [birth year] DATE: 07/04/18 GI NOTE PREOPERATIVE DIAGNOSIS:ABDOMINAL PAIN POSTOP UPPER GI PROC/FINDINGS: UPPER GI PROCEDURE/SURGERY:ESOPHAGASTRODUODENOSCOPY, GASTRIC BIOPSY UPPER GI FINDINGS: GASTRITIS, GASTRIC ULCER POSTOP LOWER GI PROC/FINDINGS: LOWER GI PROCEDURE/SURGERY: COLONOSCOPY LOWER GI FINDINGS: ABDOMINAL PAIN (normal colon) CORINE PAULINO MD CM:POSTOPN [id number] CORINE PAULINO MD 07/07/18 1046 KEISHA RICK.R
--- NOTE | ~2018-07-02 | PR ---
[place], [place] PROGRESS NOTE NAME: SARAH PETERS UNIT #: [id number] ROOM: 510 DOCTOR: CARMELO JAMES MD BIRTHDATE: [birth year] DOS: 07/06/2018 SUBJECTIVE: The patient is status post colonoscopy and CT scan of the abdomen and pelvis showing no obvious metastasis of the colon cancer and pathology results are still pending. OBJECTIVE: VITAL SIGNS: Blood pressure 124/50, heart rate 80 beats per minute, breathing 20 times per minute, and temperature 98.1 degrees Fahrenheit. GENERAL APPEARANCE: The patient is alert and oriented x 3, in no visible distress. HEENT AND NECK: Exam within normal limits. CARDIOVASCULAR SYSTEM: Heart rate is regular in rate and rhythm. S1 and S2 normally audible. LUNGS: Clear to auscultation. ABDOMEN: Soft, nontender. No obvious organomegaly. Bowel sounds are present. EXTREMITIES: Without significant cyanosis or edema. IMPRESSION: 1. The patient with colon cancer at the splenic flexure. Pathology results are still pending on the biopsy by Dr. Alvarez. CAT scan result showing no obvious metastasis. The patient is opting for surgery and would like to be transferred to a tertiary care center for further evaluation and management. Case discussed with Dr. Alvarez who plans to transfer her to [facility] for surgery. 2. Chronic atrial fibrillation. The patient anticoagulated with Xarelto, which was held back for endoscopy. 3. Gastroesophageal reflux disease and esophagitis, asymptomatic with omeprazole. 4. Benign essential hypertension, treated and controlled. 5. Type 2 diabetes mellitus. Blood sugars are being monitored and treated. The patient on insulin. 6. Hypothyroidism, replaced with levothyroxine. 7. Chronic primary insomnia, treated and controlled with trazodone. 8. Coronary artery disease of [place] vessels without chest pains. The patient on isosorbide and pain free. [place], [place] PROGRESS NOTE NAME: SARAH PETERS UNIT #: [id number] ROOM: 510 DOCTOR: CARMELO JAMES MD BIRTHDATE: [birth year] CARMELO JAMES MD CM:SHIRATRANS 18 15 CARMELO JAMES MD 07/06/182114 interface
--- NOTE | ~2018-07-02 | PR ---
[place], [place] PROGRESS NOTE NAME: SARAH PEETRS [facility] #: [id number] UNIT #: [id number] ROOM: 510 DOCTOR: CARMELO JAMES MD BIRTHDATE: [birth year] DOS: 07/04/2018 SUBJECTIVE: The patient is waiting for EGD and colonoscopy for further evaluation today. OBJECTIVE: VITAL SIGNS: Blood pressure 145/65, heart rate 72 beats per minute, breathing 18 times per minute, temperature 98 degrees Fahrenheit. LABORATORY DATA: Urine cultures were negative. No leukocytosis on CBC: Hemoglobin 9.8. IMPRESSION AND PLAN: 1. The patient with abdominal pains with colitis at splenic flexure with some lymphadenopathy, undergoing colonoscopy for further evaluation. The patient has previous history of colon cancer and there is some suspicion of disease recurrence because of the lymph node enlargement. 2. Abdominal pains. The patient continued on hydrocodone for pain control. 3. Chronic atrial fibrillation. The patient anticoagulated with Xarelto, which is on hold for esophagogastroduodenoscopy. 4. Gastroesophageal reflux disease and esophagitis, asymptomatic with omeprazole. 5. Benign essential hypertension, is being treated and controlled. 6. Type 2 diabetes mellitus. Blood sugar is staying normal with half dose of insulin because she is n.p.o. today. 7. Hypothyroidism, treated with levothyroxine. 8. Chronic primary insomnia, treated and controlled with trazodone. 9. Coronary artery disease of the [place] vessels, without chest pains. The patient is on isosorbide. CARMELO JAMES MD CM:PNTRANS [id number] CARMELO JAMES MD 07/04/18 1755 interface
[~2018-07-02 13:44] MED LIST changes: +CYMBALTA20 M1 PO; +DIGOXIN125 MCG PO; +LANTUS SOL100 UNIT/1 SC; +PRILOSEC20 M1 PO; +XARE15TA PO
[2018-07-02 13:47] VITALS: BP 128/62
[2018-07-02 14:37] LABS: BASO % 0.5 % (0.0-1.0); EOS # 0.1 10*3/uL (0.0-0.4); EOS % 2.1 % (1.0-4.0); HEMATOCRIT 30.2 % (37.0-47.0); HEMOGLOBIN 9.4 g/dl (12.0-16.0); LYMPH # 1.3 10*3/uL (1.3-4.4); LYMPH % 19.4 % (27.0-41.0); MEAN CORPUSCULAR HGB 31.4 pg (27.0-31.0); MEAN CORPUSCULAR HGB CONC 31.1 g/dl (33.0-37.0); MEAN PLATELET VOLUME 11.4 fl (9.6-12.3); MONO # 0.3 10*3/uL (0.1-1.0); MONO % 4.4 % (3.0-9.0); NEUT # 4.8 10*3/uL (2.3-7.9); PLATELET COUNT AUTOMATED 245 10*3/uL (130-400); RED BLOOD COUNT 2.99 10*6/uL (4.10-5.10); RED CELL DISTRI WIDTH 14.6 % (0-14.5); WHITE BLOOD COUNT 6.6 10*3/uL (4.8-10.8)
[2018-07-02 14:58] LABS: ACT PARTIAL THROMBO TIME 23.9 SECONDS (20.8-31.5); INTERNATIONAL NORM RATIO 1.1 (2.0-3.5)
[2018-07-02 15:00] VITALS: BP 134/70
[2018-07-02 15:08] LABS: BILIRUBIN NEGATIVE (NEGATIVE); BLOOD TRACE-INTACT (NEGATIVE); CLARITY SL CLOUDY (CLEAR); COLOR YELLOW (YELLOW); GLUCOSE TRACE (NEGATIVE); KETONE NEGATIVE (NEGATIVE); LEUKO ESTERASE NEGATIVE (NEGATIVE); NITRITE NEGATIVE (NEGATIVE); PH 5.5 (5.0-9.0); SPECIFIC GRAVITY 1.025 (1.005-1.030); UROBILINOGEN 0.2 E.U./dl (0.2-1.0)
[2018-07-02 15:25] LABS: BACTERIA 1+; EPITHELIAL CELLS 16-20
[2018-07-02 15:34] LABS: ALBUMIN 2.5 gm/dl (3.1-4.5); CREATININE 1.46 mg/dL (0.55-1.02); POTASSIUM 4.7 mmol/L (3.5-5.1); TOTAL PROTEIN 7.4 gm/dL (6.4-8.2)
--- NOTE | 2018-07-02 15:40 | NUR ---
PT IS SITTING UP IN THE CHAIR IN ROOM... SHE IS FULLY DRESSED.
--- NOTE | 2018-07-02 16:58 | NUR ---
PT SITTING IN CHAIR WITH FAMILY IN ROOM. IV FLUIDS INFUSING PER EMAR WITHOUT DIFFICULTY.
[2018-07-02 17:00] VITALS: BP 124/54
[2018-07-02 18:42] VITALS: BP 127/59
[2018-07-02 19:40] VITALS: BP 150/65
--- NOTE | 2018-07-02 19:40 | NUR ---
A 83, admitted to 5E, under the services of Dr. ERIKA OMER,CARMELO García with a diagnosis of COLITIS. Chief complaint is ABD PAIN. Patient arrived via stretcher from ER. Monitor applied. Initial assessment completed. Vital signs taken and recorded. DR. ERIKA OMER,CARMELO García notified of admission to the unit. Orders received. See assessment for past medical history, medications and allergies. Patient and/or family oriented to unit. [facility] visitation policy reviewed. Clothing/patient valuable form completed. PORT[facility] BILLS
--- NOTE | 2018-07-02 20:20 | NUR ---
SPOKE WITH PT'S DAUGHTER (PATRIA MALAGON OVER THE PHONE. SHE STATED SHE DOES NOT HAVE A LIST OF HER MOTHER'S MEDICATIONS WITH HER BUT SHE WILL BRING A LIST IN THE MORNING. SHE STATED ER STAFF DID NOT GO OVER MEDICATIONS WITH HER BUT THAT THEY WERE ALL THE SAME EXCEPT THE LANTUS (WHICH WAS CHANGED BY ER). DAUGHTER WAS GIVEN PASSCODE PER PT'S REQUEST.
--- NOTE | 2018-07-02 20:34 | NUR ---
CONSULT CALLED TO DR. PAULINO. NO ORDERS RECEIVED.
--- NOTE | 2018-07-02 22:29 | NUR ---
24 HR chart check completed.
--- NOTE | 2018-07-02 23:22 | NUR ---
PT ASSISTED INTO RESTROOM WITH CANE AND MINIMAL ASSIST FROM RN. PT TOLERATED AMBULATION TO AND FROM RESTROOM. CALL LIGHT WITHIN REACH. BED ALARM ON.
[2018-07-03] VITALS: BP 132/72
[2018-07-03 06:23] LABS: BASO % 0.3 % (0.0-1.0); EOS # 0.2 10*3/uL (0.0-0.4); EOS % 2.9 % (1.0-4.0); HEMATOCRIT 28.6 % (37.0-47.0); LYMPH # 1.3 10*3/uL (1.3-4.4); MEAN CORPUSCULAR HGB 31.5 pg (27.0-31.0); MEAN CORPUSCULAR HGB CONC 31.5 g/dl (33.0-37.0); MEAN PLATELET VOLUME 11.4 fl (9.6-12.3); MONO # 0.4 10*3/uL (0.1-1.0); MONO % 6.2 % (3.0-9.0); NEUT # 4.3 10*3/uL (2.3-7.9); NEUT % 69.1 % (47.0-73.0); PLATELET COUNT AUTOMATED 223 10*3/uL (130-400); RED BLOOD COUNT 2.86 10*6/uL (4.10-5.10); RED CELL DISTRI WIDTH 14.6 % (0-14.5); WHITE BLOOD COUNT 6.3 10*3/uL (4.8-10.8)
[2018-07-03 08:00] VITALS: BP 121/49
--- NOTE | 2018-07-03 09:07 | NUR ---
PT SEEN AT THIS TIME. PT WAS SLEEPING IN BED BUT AROUSED EASILY. PT WALKED TO THE BATHROOM AND STEADY GAIT WAS ASSESSED WITH ASSISTIVE DEVICE. PT SHOWED NO SIGNS OF DISTRESS OR SHORTNESS OF BREATH. BED IN LOWEST LOCKED POSITION AND CALL LIGHT WITHIN REACH
--- NOTE | 2018-07-03 13:45 | NUR ---
PT REQUESTED AND RECIEVED PRN NORCO FOR BACK PAIN RATED AT A 10. WILL MONITOR FOR EFFECTIVENESS.
--- NOTE | 2018-07-03 15:00 | NUR ---
PT STATES RELIEF FROM PREVIOUS PRN NORCO.
[2018-07-03 16:00] VITALS: BP 133/52
--- NOTE | 2018-07-03 18:13 | NUR ---
PT REQUESTED AND RECIEVED PRN NORCO FOR BACK PAIN RATED AT A 10. WILL MONITOR FOR EFFECTIVENESS.
--- NOTE | 2018-07-03 19:45 | NUR ---
DAUGHTER'S PRESENT AT BEDSIDE. QUESTIONS ANSWERED. MED LIST PROVIDED, UPDATED IN COMPUTER AND COPY ON CHART
[2018-07-03 20:00] VITALS: BP 135/60
--- NOTE | 2018-07-03 20:57 | NUR ---
24 HR chart check completed.
--- NOTE | 2018-07-03 21:00 | NUR ---
RESTING IN BED, NO ACUTE DISTRESS NOTED. RESPIRATIONS EASY. LUNGS DIMINISHED, CLEAR. PULSE OX 95% RA. C/O STRESS INCONT, HOME PULL-UPS IN USE. TRACE BLE EDEMA. CALL LIGHT WITHIN REACH. NO VOICED COMPLAINTS
--- NOTE | 2018-07-03 22:00 | NUR ---
RESTING IN BED. COLO PREP CONTINUED, PATIENT TO AND FROM BR FREQUENTLY TO MOVE BOWELS. CALL LIGHT WITHIN REACH. NO VOICED COMPLAINTS
[2018-07-04] VITALS (8 sets, daily range): BP systolic 118–153; BP diastolic 46–76
--- NOTE | 2018-07-04 | NUR ---
SLEEPING. NO DISTRESS NOTED. RESPIRATIONS EASY. VSS. CALL LIGHT WITHIN REACH. NPO STATUS MAINTAINED FOR EGD/COLO AM
[2018-07-04] MEDS ORDERED: CYCLOBENZAPRINE10 MG PO (01:01)
[2018-07-04] MEDS ORDERED: COLACE100 MG PO (01:02)
[2018-07-04] MEDS ORDERED: LASIX20 MG PO (01:03)
[2018-07-04] MEDS ORDERED: Lopressor25 MG PO (01:05)
[2018-07-04] MEDS ORDERED: ELIQUIS5 M1 PO (01:07)
--- NOTE | 2018-07-04 06:00 | NUR ---
slept throughout night with no distress noted. respirations easy. colo prep continued; fleets enema given, patient tolerated well. call light within reach. no voiced complaints
--- NOTE | 2018-07-04 06:30 | NUR ---
WOUND CARE HERE TO ASSESS PATIENT AND DISCUSS PLAN OF CARE
[2018-07-04 06:43] LABS: BASO % 0.4 % (0.0-1.0); EOS # 0.2 10*3/uL (0.0-0.4); EOS % 2.8 % (1.0-4.0); HEMATOCRIT 31.9 % (37.0-47.0); HEMOGLOBIN 9.8 g/dl (12.0-16.0); LYMPH # 2.3 10*3/uL (1.3-4.4); MEAN CELL VOLUME 100.6 fl (81.0-99.0); MEAN CORPUSCULAR HGB 30.9 pg (27.0-31.0); MEAN CORPUSCULAR HGB CONC 30.7 g/dl (33.0-37.0); MEAN PLATELET VOLUME 11.5 fl (9.6-12.3); MONO # 0.5 10*3/uL (0.1-1.0); MONO % 6.1 % (3.0-9.0); NEUT # 4.9 10*3/uL (2.3-7.9); NEUT % 61.4 % (47.0-73.0); PLATELET COUNT AUTOMATED 248 10*3/uL (130-400); RED BLOOD COUNT 3.17 10*6/uL (4.10-5.10); RED CELL DISTRI WIDTH 14.7 % (0-14.5); WHITE BLOOD COUNT 7.9 10*3/uL (4.8-10.8)
--- NOTE | 2018-07-04 09:12 | NUR ---
SARAH PETERS [id number] Please refer to the physician's history and physical for past medical history, comorbid conditions, and allergies. Diagnosis: COLITIS,DEHYDRATION Jacob Score: 17,AT RISK WOUND DESCRIPTIONS: FUNGAL RASH NOTED UNDER BREASTS AND IN GROIN. RASH WORSE UNDER LEFT BREAST. NO DRAINAGE NOTED TO THESE AREAS. MILD ODOR NOTED TO THESE AREAS. PATIENT DENIED PAIN AT TIME OF ASSESSMENT. BILATERAL HEELS PINK AND INTACT. Surface the patient is resting on: Position Pro SKIN PREVENTION RECOMMENDATION: 1. Pressure redistribution support surface as appropriate 2. Elevate heels 3. Remove boots/TEDS every shift and reapply 4. Head of bed 30 degrees as tolerated 5. Assess nutrition and hydration 6. Manage moisture 7. Avoid the use of containment devices while in bed 8. Use absorptive products on surfaces limit layers of linens on bed 9. Turn and reposition every 1-2 hours in bed and every 1 hour in chair as tolerated 10. Weight shifts every 15 minutes while up in chair 11. Offloading with pillows or device to keep heels elevated off bed 12. Monitor skin at least every shift 13. Inspect under medical devices twice a day WOUND TREATMENT RECOMMENDATIONS: CLEANSE UNDER BREASTS AND GROIN WITH SOAP AND WATER. PAT DRY AND APPLY NYSTATIN POWDER EVERY EIGHT HOURS.
--- NOTE | 2018-07-04 13:32 | NUR ---
Cod Clerk in to talk to patient. Patient states lives at HOME with SON. There are FEW steps in the home. Physician: ERIKA Pharmacy: [facility] Home health services: NONE Patient's level of ADLs: MODERATE ASSIST Patient has working utilities: YES DME: [facility] Follow-up physician's appointment after d/c: FAMILY PREFERS TO MAKE OWN ON DISCHARGE Does patient want to access PORTAL?: NO Discharge plan PT LIVES AT HOME WITH HER SON, DAUGHTER IN ROOM AT TIME OF VISIT AND STATES THEY ARE TRYING TO GET PT INTO ASSISTED LIVING AT [facility] WAS COMING FOR A HOME VISIT THIS WEEK. NO OTHER NEEDS VOICED AT THIS TIME. WILL CONTINUE TO FOLLOW.. DENIZ LEI
--- NOTE | 2018-07-04 19:01 | NUR ---
SPOKE WITH DR PAULINO ABOUT THE PT'S PROCEDURE. ORDERS RECEIVED. REPEAT BUN/CR IN THE AM AND TO CALL DR PAULINO WITH RESULTS PRIOR TO ORDERING CT ABD/PELVIS WITH CONTRAST. PT STILL OFF THE FLOOR AT THIS TIME.
--- NOTE | 2018-07-04 19:44 | NUR ---
24HR CHART CHECK COMPLETED
--- NOTE | 2018-07-04 23:11 | NUR ---
PRN NORCO GIVEN FOR COMPLAINTS OF 8/10 ABD PAIN. WILL MONITOR FOR EFFECTIVENESS.
[2018-07-05] VITALS: BP 141/75
--- NOTE | 2018-07-05 00:55 | NUR ---
24 HR chart check completed.
--- NOTE | 2018-07-05 01:00 | NUR ---
EARLIER NORCO APPEARS EFFECTIVE. SLEEPING. RESPIRATIONS EASY. LUNGS DIMINISHED, CLEAR. PULSE OX 94% RA. CALL LIGHT WITHIN REACH
--- NOTE | 2018-07-05 05:49 | NUR ---
MEDICATED WT NORCO PER PRN ORDER FOR COMPLAINTS OF BACK PAIN RATING AN 8. CALL LIGHT WITHIN REACH. WILL MONITOR FOR EFFECTIVENESS
[2018-07-05 06:36] LABS: BASO % 0.3 % (0.0-1.0); EOS # 0.2 10*3/uL (0.0-0.4); EOS % 2.6 % (1.0-4.0); HEMATOCRIT 30.2 % (37.0-47.0); HEMOGLOBIN 9.3 g/dl (12.0-16.0); LYMPH # 1.9 10*3/uL (1.3-4.4); MEAN CELL VOLUME 101.7 fl (81.0-99.0); MEAN CORPUSCULAR HGB 31.3 pg (27.0-31.0); MEAN CORPUSCULAR HGB CONC 30.8 g/dl (33.0-37.0); MEAN PLATELET VOLUME 11.7 fl (9.6-12.3); MONO # 0.4 10*3/uL (0.1-1.0); MONO % 5.8 % (3.0-9.0); NEUT # 3.9 10*3/uL (2.3-7.9); PLATELET COUNT AUTOMATED 239 10*3/uL (130-400); RED BLOOD COUNT 2.97 10*6/uL (4.10-5.10); WHITE BLOOD COUNT 6.4 10*3/uL (4.8-10.8)
--- NOTE | 2018-07-05 06:55 | NUR ---
RETING IN BED. STATES RELIEF FROM EARLIER NORCO. CALL LIGHT WITHIN REACH. NO FURTHER VOICED COMPLAINTS
[2018-07-05 06:56] LABS: CREATININE 1.26 mg/dL (0.55-1.02)
--- NOTE | 2018-07-05 07:51 | NUR ---
[facility] called stating she is in contact with the patient and the daughter. They are currently working on getting the patient to [facility] assisted [facility]. APS will be in to see patient today to drop off a medicaid application for the waiver program.
[2018-07-05 08:00] VITALS: BP 139/73
--- NOTE | 2018-07-05 09:50 | NUR ---
DR PAULINO CALLED AND NOTIFIED OF BUN/CREAT RESULTS. ADDITIONAL LABS ORDERED. TAYO CALLED WITH RESULTS IN AM.
[2018-07-05 12:00] VITALS: BP 146/69
--- NOTE | 2018-07-05 12:49 | NUR ---
PT WILL RETURN HOME WITH SON WHILE WAITING FOR FAMILY TO FINALIZED PLANS FOR GETTING INTO [facility].
[2018-07-05 15:59] VITALS: BP 117/50
--- NOTE | 2018-07-05 17:30 | NUR ---
PATIENT RECEIVED NORCO FOR PAIN RATED 7/10.
[2018-07-05 20:00] VITALS: BP 138/61
[2018-07-06] VITALS: BP 135/56
--- NOTE | 2018-07-06 03:07 | NUR ---
24 HR chart check completed.
[2018-07-06 06:53] LABS: CREATININE 1.11 mg/dL (0.55-1.02); POTASSIUM 3.9 mmol/L (3.5-5.1)
[2018-07-06 08:00] VITALS: BP 140/74
--- NOTE | 2018-07-06 08:26 | NUR ---
DR PAULINO MADE AWARE OF PT BUN AND CREATININE RESULTS. ORDER FOR CT SCAN WITH CONTRAST RECEIVED.
[2018-07-06 12:00] VITALS: BP 140/55
--- NOTE | 2018-07-06 13:46 | NUR ---
PT HAS NO NEW NEEDS TODAY. WILL CONTINUE TO FOLLOW.
--- NOTE | 2018-07-06 14:53 | NUR ---
PT MEDICATED WITH NORCO FOR C/O CHRONIC BACK PAIN.
--- NOTE | 2018-07-06 15:21 | NUR ---
DR PAULINO MADE AWARE OF CT SCAN RESULTS FROM TODAY. STATED HE WILL BE IN TO SEE PT THIS AFTERNOON.
[2018-07-06 16:00] VITALS: BP 124/50
[2018-07-06 20:00] VITALS: BP 116/60
--- NOTE | 2018-07-06 22:40 | NUR ---
MEDICATED WITH NORCO PER PRN ORDER FOR C/O PAIN.
[2018-07-07] VITALS: BP 127/52
[2018-07-07 08:00] VITALS: BP 120/52
--- NOTE | 2018-07-07 09:54 | NUR ---
Medicated with norco per prn order for complaints of abdominal pain.
--- NOTE | 2018-07-07 10:45 | NUR ---
States that medication was effective.
--- NOTE | 2018-07-07 11:36 | NUR ---
BSG was 50 after 2 ojs with sugar bsg was 64. Pt is asymptomatic, is ordering lunch. Did not eat breakfast this am and pt in on clear liquids only. Notified Dr. Beasley and new orders received for D51/2 NS@60 for 24 hours and to hold diabetic meds at this time.
[2018-07-07 12:00] VITALS: BP 131/50
--- NOTE | 2018-07-07 13:52 | NUR ---
DR. Alvarez had called and and states that pt has been accepted by Dr. Patel Stoner at [facility]. Requested that med call be called to give report at [phone]. I called number and answered all questions they required, states they will check with Dr. Stoner to make sure he is accepting and will call us back. Requested facesheet be faxed to [phone]. I asked Teresa ALVAREZ to fax information requested.
--- NOTE | 2018-07-07 14:23 | NUR ---
Notified by Teresa ALVAREZ that MEd call returned call and states they need approval from insurance for pt to be transferred. Teresa spoke with Aisha Hernandez in case management regarding this.
--- NOTE | 2018-07-07 15:20 | NUR ---
CALLED PT INSURANCE TO GET AUTH NUMBER FOR TRANSFER. AUTH NUMBER IS [id number]. NOTIFIED MED CALL FOR [facility]. ALSO GAVE THEM FAX NUMBER TO SEND CLINICALS TO WHICH IS [phone]. [employer]E [employer]PER[employer] BECKY ALSO GIVEN AUTH NUMBER.
[2018-07-07 16:00] VITALS: BP 136/52
--- NOTE | 2018-07-07 16:13 | NUR ---
Notified pt daughter that we have a bed and we are arranging transport. Notified bed is room 6505 bed 6.
--- NOTE | 2018-07-07 16:40 | NUR ---
Report given to Abhinav at number provided by med call for report. Notified that ambulance was on way to [place] machine operator pt here for transfer.
--- NOTE | 2018-07-07 17:30 | NUR ---
Pt dc in care of [facility].
== END 2018-07-07 17:30 | disposition short-term general hospital (02) | DRG 375 ==
LOC: ED 13:44 → EDHOLD 19:06 → 5E 19:06
PROVIDERS: Internal Medicine Gastroenterology; Nurse Practitioner Family; ADMIT Internal Medicine
DX: C18.5 Malignant neoplasm of splenic flexure (principal); E44.0 Moderate protein-calorie malnutrition; F33.1 Major depressive disorder, recurrent, moderate; K52.9 Noninfective gastroenteritis and colitis, unspecified; I48.2 Chronic atrial fibrillation; E78.2 Mixed hyperlipidemia; K21.0 Gastro-esophageal reflux disease with esophagitis; N18.3 Chronic kidney disease, stage 3 (moderate); M47.896 Other spondylosis, lumbar region; G89.29 Other chronic pain; D64.9 Anemia, unspecified; K29.70 Gastritis, unspecified, without bleeding; Z96.1 Presence of intraocular lens; K25.9 Gastric ulcer, unspecified as acute or chronic, without hemorrhage or perforation; K44.9 Diaphragmatic hernia without obstruction or gangrene; M54.5 Low back pain; E11.22 Type 2 diabetes mellitus with diabetic chronic kidney disease; E86.0 Dehydration; E66.9 Obesity, unspecified; J44.9 Chronic obstructive pulmonary disease, unspecified; I12.9 Hypertensive chronic kidney disease with stage 1 through stage 4 chronic kidney disease, or unspecified chronic kidney disease; E03.9 Hypothyroidism, unspecified; R62.7 Adult failure to thrive; I25.10 Atherosclerotic heart disease of native coronary artery without angina pectoris; F51.01 Primary insomnia; Z90.49 Acquired absence of other specified parts of digestive tract; Z86.73 Personal history of transient ischemic attack (TIA), and cerebral infarction without residual deficits; Z98.49 Cataract extraction status, unspecified eye; Z90.710 Acquired absence of both cervix and uterus; Z87.891 Personal history of nicotine dependence; Z81.1 Family history of alcohol abuse and dependence; Z82.3 Family history of stroke; Z82.49 Family history of ischemic heart disease and other diseases of the circulatory system; Z80.8 Family history of malignant neoplasm of other organs or systems; Z68.30 Body mass index [BMI] 30.0-30.9, adult

== ENCOUNTER → 2018-08-01 | Outpatient (CLI) | payer OTHER ==
[2018-08-01] VITALS (7 sets, daily range): BP systolic 105–118; BP diastolic 59–67
[~2018-08-01] MED LIST changes: +CYCLOBENZAPRINE10 MG PO; +LASIX20 MG PO; +Lopressor25 MG PO
== END | disposition home or self-care (01) ==
LOC: TRNFUSION 09:30
DX: D64.9 Anemia, unspecified (principal); I25.10 Atherosclerotic heart disease of native coronary artery without angina pectoris; I12.9 Hypertensive chronic kidney disease with stage 1 through stage 4 chronic kidney disease, or unspecified chronic kidney disease; E11.22 Type 2 diabetes mellitus with diabetic chronic kidney disease; N18.9 Chronic kidney disease, unspecified; E78.5 Hyperlipidemia, unspecified; K21.9 Gastro-esophageal reflux disease without esophagitis; F33.9 Major depressive disorder, recurrent, unspecified; M48.00 Spinal stenosis, site unspecified; I48.2 Chronic atrial fibrillation; J43.9 Emphysema, unspecified; G89.29 Other chronic pain; E03.9 Hypothyroidism, unspecified; F41.9 Anxiety disorder, unspecified; Z79.01 Long term (current) use of anticoagulants; Z87.891 Personal history of nicotine dependence; Z86.73 Personal history of transient ischemic attack (TIA), and cerebral infarction without residual deficits; Z79.4 Long term (current) use of insulin; Z85.038 Personal history of other malignant neoplasm of large intestine

== ENCOUNTER → 2018-12-02 | Outpatient (CLI) | payer OTHER | END | disposition home or self-care (01) | LOC: CT 11-25 12:34 | DX: C18.9 Malignant neoplasm of colon, unspecified (principal); K76.0 Fatty (change of) liver, not elsewhere classified; Z90.49 Acquired absence of other specified parts of digestive tract ==

== ENCOUNTER 2019-02-15 04:33 | Inpatient (IN) | payer OTHER ==
[~2019-02-15] VITALS: Ht 167.6 cm; Wt 91.2 kg
[2019-02-15 04:37] VITALS: BP 135/62
[2019-02-15] MEDS ORDERED: EXELON1 EAC1 T (04:42)
[2019-02-15] MEDS ORDERED: HALOPERIDOL1 MG PO (04:43)
[2019-02-15] MEDS ORDERED: LANTUS SOL100 UNIT/1 SQ (04:44)
[2019-02-15] MEDS ORDERED: DICLOFENAC SOD100 G1 T (04:45)
[2019-02-15] MEDS ORDERED: Duragesic 25 M25 MCG TD (04:45)
[2019-02-15] MEDS ORDERED: HUMALOG100 UNIT/2 SQ (04:46)
[2019-02-15] MEDS ORDERED: Amaryl2 MG PO (04:46)
[2019-02-15] MEDS ORDERED: TRAD5TAB1 PO (04:46)
[2019-02-15] MEDS ORDERED: ATIVAN0.5 MG PO (04:47)
[2019-02-15] MEDS ORDERED: MIRTAZAPINE15 M1 PO (04:47)
[2019-02-15] MEDS ORDERED: HYDROCODONE-AC1 EAC2 PO (05:02)
--- NOTE | 2019-02-15 05:10 | NUR ---
PATIENT AMBULATORY TO THE RESTROOM WITH ASSITANCE.
[2019-02-15 05:15] LABS: BILIRUBIN NEGATIVE (NEGATIVE); BLOOD TRACE-INTACT (NEGATIVE); CLARITY SL CLOUDY (CLEAR); COLOR YELLOW (YELLOW); GLUCOSE NEGATIVE (NEGATIVE); KETONE NEGATIVE (NEGATIVE); LEUKO ESTERASE 3+ (NEGATIVE); NITRITE NEGATIVE (NEGATIVE); PH 5.5 (5.0-9.0); UROBILINOGEN 0.2 E.U./dl (0.2-1.0)
[2019-02-15 05:24] LABS: BACTERIA 2+; EPITHELIAL CELLS TNTC; WBC TNTC wbc/hpf (0-5)
[2019-02-15 05:55] LABS: BASO % 0.3 % (0.0-1.0); EOS # 0.2 10*3/uL (0.0-0.4); EOS % 2.5 % (1.0-4.0); HEMATOCRIT 26.5 % (37.0-47.0); HEMOGLOBIN 7.7 g/dl (12.0-16.0); LYMPH # 1.3 10*3/uL (1.3-4.4); LYMPH % 21.2 % (27.0-41.0); MEAN CELL VOLUME 90.4 fl (81.0-99.0); MEAN CORPUSCULAR HGB 26.3 pg (27.0-31.0); MEAN CORPUSCULAR HGB CONC 29.1 g/dl (33.0-37.0); MEAN PLATELET VOLUME 11.4 fl (9.6-12.3); MONO # 0.4 10*3/uL (0.1-1.0); MONO % 6.3 % (3.0-9.0); NEUT # 4.4 10*3/uL (2.3-7.9); NEUT % 69.2 % (47.0-73.0); PLATELET COUNT AUTOMATED 201 10*3/uL (130-400); RED BLOOD COUNT 2.93 10*6/uL (4.10-5.10); WHITE BLOOD COUNT 6.3 10*3/uL (4.8-10.8)
[2019-02-15 06:11] LABS: ALBUMIN 3.2 gm/dl (3.1-4.5); CREATININE 1.34 mg/dL (0.55-1.02); POTASSIUM 4.2 mmol/L (3.5-5.1); TOTAL PROTEIN 7.8 gm/dL (6.4-8.2)
[2019-02-15 06:15] LABS: TROPONIN I 0.062 ng/ml (<0.045)
--- NOTE | 2019-02-15 06:15 | NUR ---
CRITICAL LAB TROP 0.062. DR EDMOND NOTIFIED AT THIS TIME.
--- NOTE | 2019-02-15 06:46 | NUR ---
NURSE TO NURSE REPORT GIVEN TO [facility].
--- NOTE | 2019-02-15 07:05 | NUR ---
NURSE REPORT RECEIVED FOR CONTINUATION OF CARE. PT'S DISCHARGE HAS BEEN RESCINDED. IV SITE WILL BE RESTARTED. VITALS STABLE. PT IS NONCOMPLIANT, VERBALLY AGRESSIVE WITH MY ASSESSMENT AND IV STARTS.
[2019-02-15 07:25] VITALS: BP 134/60
--- NOTE | 2019-02-15 08:01 | NUR ---
CCA 83, admitted to , under the services of SOUMYA Arauz MD with a diagnosis of ANEMIA, ELEVATED TROPONIN, CHEST PAIN. Chief complaint is CHEST PAIN, SOB. Patient arrived via ambulance from ER. Monitor applied. Initial assessment completed. Vital signs taken and recorded. SOUMYA ARAUZ MD notified of admission to the unit. Orders received. See assessment for past medical history, medications and allergies. Patient and/or family oriented to unit. [address] visitation policy reviewed. Clothing/patient valuable form completed. RADHA REMY.
[2019-02-15 08:05] VITALS: BP 157/82
[2019-02-15] MEDS ORDERED: TRADJENTA5 M1 PO (08:17)
[2019-02-15] MEDS ORDERED: LIDOCAINE PAIN1 EACH T (08:18)
[2019-02-15] MEDS ORDERED: METOPROLOL SUCC25 M2 PO (08:21)
--- NOTE | 2019-02-15 08:25 | NUR ---
MED REC UPDATED PER POLICY.
--- NOTE | 2019-02-15 09:09 | NUR ---
[facility] NOTIFIED OF CONSULT. DR. LAWTON NOTIFIED OF MOST RECENT TROPONIN LEVEL.
[2019-02-15 09:35] LABS: PHOSPHOROUS 3.2 mg/dL (2.5-4.9)
[2019-02-15 09:45] LABS: DIGOXIN 0.65 ng/ml (0.8-2.0)
--- NOTE | 2019-02-15 09:46 | NUR ---
patient refusing echo.
--- NOTE | 2019-02-15 11:01 | NUR ---
MEDICATED WITH PRN PO NORCO FOR BACK PAIN.
--- NOTE | 2019-02-15 11:18 | NUR ---
[facility] OFFICE STAFF NOTIFIED OF MOST RECENT TROPONIN I RESULT.
--- NOTE | 2019-02-15 12:34 | NUR ---
PRN PO NORCO EFFECTIVE; PATIENT RESTING W/OUT S/S PAIN.
[2019-02-15 13:00] VITALS: BP 155/80
--- NOTE | 2019-02-15 14:40 | NUR ---
[facility] STAFF NOTIFIED OF MOST RECENT TROPONIN I RESULT.
--- NOTE | 2019-02-15 14:55 | NUR ---
PATIENT HAD A RUN OF 7 PVC'S W/IN 2 SECONDS W/A RATE OF 120-130, THEN RESUMED PREVIOUS RHYTHM OF AFIB RATE 60'S -70'S, PATIENT WAS SLEEPING AT THE TIME, REPORTS NO PALPITATIONS, CHEST PAIN OR SHORTNESS OF BREATH DURING THAT TIME.
--- NOTE | 2019-02-15 15:59 | NUR ---
PER FAMILY, PATIENT HAS BEEN HAVING DIFFICULTY OPENING/CLOSING HER HAND AND WAS C/O NUMBNESS/TINGLING IN HER LEFT HAND AND ARM PRIOR TO COMING TO ED THIS MORNING FROM [facility]. DR. FLORENCE NOTIFIED, OBTAINED ORDER FOR CT HEAD.
[2019-02-15 16:00] VITALS: BP 146/82
--- NOTE | 2019-02-15 16:22 | NUR ---
PATIENT TO CT FOR CT HEAD BY WHEELCHAIR.
--- NOTE | 2019-02-15 20:30 | NUR ---
PT REFUSING VITALS AT THIS TIME
[2019-02-16] VITALS: BP 119/52
--- NOTE | 2019-02-16 01:41 | NUR ---
Patient resting quietly with no c/o or s/s discomfort. Respirations easy and regular. Vital signs stable. No overt distress. Bed alarm on. Call light within reach. ARIANA TAVERAS
--- NOTE | 2019-02-16 04:28 | NUR ---
24 HR chart check completed.
--- NOTE | 2019-02-16 05:49 | NUR ---
PT REFUSING BLOOD WORK AT THIS TIME.
--- NOTE | 2019-02-16 06:30 | NUR ---
SPOKE WITH DR ARRIAGA REGARDING PTS SUSTAINED HEART RATE IN THE 150'S. STATED TO GET TELE STRIPS PRINTED OFF AND GET A STAT EKG. PT RESTING IN BED. VOICES NO COMPLAINTS AT THIS TIME.
--- NOTE | 2019-02-16 07:57 | NUR ---
Patient comes from [facility], ok to return when medically stable for discharge.
[2019-02-16 08:00] VITALS: BP 118/68
--- NOTE | 2019-02-16 08:17 | NUR ---
Discussed discharge planning with Dr. Beasley. Orders for repeat chest x-ray and labs. If normal she can be discharged today or tomorrow. funeral planner notified.
[2019-02-16] MEDS ORDERED: LASIX40 MG PO (08:31)
[2019-02-16 09:55] LABS: BASO % 0.4 % (0.0-1.0); EOS # 0.2 10*3/uL (0.0-0.4); EOS % 1.9 % (1.0-4.0); HEMATOCRIT 32.1 % (37.0-47.0); HEMOGLOBIN 9.4 g/dl (12.0-16.0); LYMPH # 1.3 10*3/uL (1.3-4.4); LYMPH % 14.7 % (27.0-41.0); MEAN CELL VOLUME 87.9 fl (81.0-99.0); MEAN CORPUSCULAR HGB 25.8 pg (27.0-31.0); MEAN CORPUSCULAR HGB CONC 29.3 g/dl (33.0-37.0); MONO # 0.6 10*3/uL (0.1-1.0); MONO % 6.8 % (3.0-9.0); NEUT # 6.5 10*3/uL (2.3-7.9); PLATELET COUNT AUTOMATED 255 10*3/uL (130-400); RED BLOOD COUNT 3.65 10*6/uL (4.10-5.10); WHITE BLOOD COUNT 8.5 10*3/uL (4.8-10.8)
[2019-02-16 10:22] LABS: CREATININE 1.48 mg/dL (0.55-1.02)
--- NOTE | 2019-02-16 10:30 | NUR ---
Manager Commercial Sales in to see patient. Her son is at the bedside. She is a LTC resident at [facility] and plans to return there upon discharge. discharge planner following. She is receiving Lasix for CHF. Elevated troponin. Pleural effusions. Cardiology consulted and changing medications. When medically stable she will be discharged to [facility].
--- NOTE | 2019-02-16 10:39 | NUR ---
Updated clinicals faxed to [facility] for review, notified facility patient is discharging today pending clearance from cardiology.
--- NOTE | 2019-02-16 11:10 | NUR ---
Asked Dr. Chaudhary if patient was stable to be discharged from cardiology standpoint as Dr. Beasley would like to discharge patient if medically stable. Awaiting return call.
--- NOTE | 2019-02-16 11:48 | NUR ---
Spoke to Dr. Chaudhary regarding if patient was stable to be discharged from cardiac standpoint. He states patient is stable to be discharged from cardiac standpoint. Nurse and Dr. Beasley notified. Awaiting lab and chest x-ray results.
--- NOTE | 2019-02-16 13:51 | NUR ---
SPOKE WITH DR FLORENCE, REGARDING CARDIOLOGY STATING SHE CAN BE DISCHARGED BUT CXR REPORT IS NOT BACK. STATES OK TO D/C.
--- NOTE | 2019-02-16 13:56 | NUR ---
Patient is discharged to return to [facility], transportation scheduled for 3PM with Dean Brown. MA, nursing/ward nurse and son Kirill all notified.
--- NOTE | 2019-02-16 14:48 | NUR ---
NURSE TO NURSE REPORT GIVEN TO ANALILIA AT [facility]
--- NOTE | 2019-02-16 15:12 | NUR ---
Discharge instructions reviewed with patient/family. Patient receptive and verbalizes understanding. Follow-up care arranged. Written instructions given to patient/family. IV site and livestock buyer removed. Pt transported via [facility]. JUAN MANUEL KAMINSKI
== END 2019-02-16 15:12 | DRG 280 ==
LOC: ED 04:33 → 4E 07:04 → EDHOLD 07:04 → 4E 07:45
PROVIDERS: Emergency Medicine; Hospitalist; ADMIT Internal Medicine
DX: I21.A1 Myocardial infarction type 2 (principal); I50.31 Acute diastolic (congestive) heart failure; J96.01 Acute respiratory failure with hypoxia; I13.0 Hypertensive heart and chronic kidney disease with heart failure and stage 1 through stage 4 chronic kidney disease, or unspecified chronic kidney disease; I48.21 Permanent atrial fibrillation; G93.40 Encephalopathy, unspecified; I48.0 Paroxysmal atrial fibrillation; N18.3 Chronic kidney disease, stage 3 (moderate); G30.1 Alzheimer's disease with late onset; F02.80 Dementia in other diseases classified elsewhere, unspecified severity, without behavioral disturbance, psychotic disturbance, mood disturbance, and anxiety; E03.9 Hypothyroidism, unspecified; E78.2 Mixed hyperlipidemia; M48.061 Spinal stenosis, lumbar region without neurogenic claudication; F41.9 Anxiety disorder, unspecified; M19.90 Unspecified osteoarthritis, unspecified site; J44.9 Chronic obstructive pulmonary disease, unspecified; Z66 Do not resuscitate; Z51.5 Encounter for palliative care; E11.22 Type 2 diabetes mellitus with diabetic chronic kidney disease; D63.1 Anemia in chronic kidney disease; E78.5 Hyperlipidemia, unspecified; I25.10 Atherosclerotic heart disease of native coronary artery without angina pectoris; Z86.73 Personal history of transient ischemic attack (TIA), and cerebral infarction without residual deficits; Z90.49 Acquired absence of other specified parts of digestive tract; Z82.3 Family history of stroke; Z79.01 Long term (current) use of anticoagulants; Z79.4 Long term (current) use of insulin; Z81.1 Family history of alcohol abuse and dependence; Z80.9 Family history of malignant neoplasm, unspecified

== ENCOUNTER 2019-03-05 23:41 | Emergency (ER) | payer OTHER ==
[~2019-03-05] VITALS: Ht 170.1 cm; Wt 81.6 kg
[~2019-03-05 23:41] MED LIST changes: +Amaryl2 MG PO; +DICLOFENAC SOD100 G1 T; +Duragesic 25 M25 MCG TD; +EXELON1 EAC1 T; +HALOPERIDOL1 MG PO; +HUMALOG100 UNIT/2 SQ; +LASIX40 MG PO; +LIDOCAINE PAIN1 EACH T; +METOPROLOL SUCC25 M2 PO; +MIRTAZAPINE15 M1 PO; +TRAD5TAB1 PO; +TRADJENTA5 M1 PO
[2019-03-06 00:22] LABS: BASO % 0.4 % (0.0-1.0); EOS # 0.2 10*3/uL (0.0-0.4); HEMOGLOBIN 8.4 g/dl (12.0-16.0); LYMPH # 1.8 10*3/uL (1.3-4.4); LYMPH % 30.8 % (27.0-41.0); MEAN CELL VOLUME 87.9 fl (81.0-99.0); MEAN CORPUSCULAR HGB 25.5 pg (27.0-31.0); MEAN PLATELET VOLUME 11.5 fl (9.6-12.3); MONO # 0.5 10*3/uL (0.1-1.0); MONO % 9.1 % (3.0-9.0); NEUT # 3.2 10*3/uL (2.3-7.9); NEUT % 56.5 % (47.0-73.0); PLATELET COUNT AUTOMATED 238 10*3/uL (130-400); RED CELL DISTRI WIDTH 15.9 % (0-14.5); WHITE BLOOD COUNT 5.7 10*3/uL (4.8-10.8)
[2019-03-06 00:23] LABS: BILIRUBIN NEGATIVE (NEGATIVE); BLOOD NEGATIVE (NEGATIVE); CLARITY SL CLOUDY (CLEAR); COLOR YELLOW (YELLOW); GLUCOSE NEGATIVE (NEGATIVE); KETONE NEGATIVE (NEGATIVE); LEUKO ESTERASE 3+ (NEGATIVE); NITRITE NEGATIVE (NEGATIVE); PH 5.5 (5.0-9.0); UROBILINOGEN 0.2 E.U./dl (0.2-1.0)
[2019-03-06 00:26] LABS: ACT PARTIAL THROMBO TIME 24.3 SECONDS (20.0-32.1)
[2019-03-06 00:29] LABS: ALBUMIN 3.2 gm/dl (3.1-4.5); ALKALINE PHOSPHATASE 62 U/L (45-117); BUN 27 mg/dl (7-24); CHLORIDE 105 mmol/L (98-107); CREATININE 1.38 mg/dL (0.55-1.02); LIPASE 113 U/L (73-393); POTASSIUM 4.7 mmol/L (3.5-5.1); SGOT/AST 16 IU/L (3-35); SGPT/ALT 14 U/L (12-78); SODIUM 139 mmol/L (136-145)
[2019-03-06 00:36] LABS: EPITHELIAL CELLS 25-30; RBC 21-30 rbc/hpf (0-2); WBC 16-20 wbc/hpf (0-5)
[2019-03-06 00:37] LABS: BACTERIA 1+
== END 2019-03-06 02:05 | disposition other institution (70) ==
LOC: ED 23:41
PROVIDERS: Emergency Medicine Emergency Medical Services
DX: K94.11 Enterostomy hemorrhage (principal); C18.9 Malignant neoplasm of colon, unspecified; G89.29 Other chronic pain; E11.22 Type 2 diabetes mellitus with diabetic chronic kidney disease; I12.9 Hypertensive chronic kidney disease with stage 1 through stage 4 chronic kidney disease, or unspecified chronic kidney disease; N18.9 Chronic kidney disease, unspecified; J44.9 Chronic obstructive pulmonary disease, unspecified; E78.5 Hyperlipidemia, unspecified; I10 Essential (primary) hypertension; E03.9 Hypothyroidism, unspecified; I48.0 Paroxysmal atrial fibrillation; E07.9 Disorder of thyroid, unspecified; K21.9 Gastro-esophageal reflux disease without esophagitis; I25.10 Atherosclerotic heart disease of native coronary artery without angina pectoris; Z79.899 Other long term (current) drug therapy; Z79.4 Long term (current) use of insulin; Z86.73 Personal history of transient ischemic attack (TIA), and cerebral infarction without residual deficits; Z90.49 Acquired absence of other specified parts of digestive tract; Z90.710 Acquired absence of both cervix and uterus; Z87.891 Personal history of nicotine dependence; Y84.8 Other medical procedures as the cause of abnormal reaction of the patient, or of later complication, without mention of misadventure at the time of the procedure; Y82.8 Other medical devices associated with adverse incidents

== ENCOUNTER 2019-03-16 09:55 | Inpatient (IN) | payer OTHER ==
[~2019-03-16] VITALS: Ht 165.1 cm; Wt 91.2 kg
[2019-03-16] VITALS (7 sets, daily range): BP systolic 101–129; BP diastolic 37–79
[2019-03-16 10:20] LABS: BASO % 0.5 % (0.0-1.0); EOS # 0.1 10*3/uL (0.0-0.4); HEMATOCRIT 26.4 % (37.0-47.0); HEMOGLOBIN 7.7 g/dl (12.0-16.0); MEAN CELL VOLUME 88.3 fl (81.0-99.0); MEAN CORPUSCULAR HGB 25.8 pg (27.0-31.0); MEAN CORPUSCULAR HGB CONC 29.2 g/dl (33.0-37.0); MONO # 0.5 10*3/uL (0.1-1.0); MONO % 8.3 % (3.0-9.0); NEUT # 4.8 10*3/uL (2.3-7.9); NEUT % 72.9 % (47.0-73.0); PLATELET COUNT AUTOMATED 243 10*3/uL (130-400); RED BLOOD COUNT 2.99 10*6/uL (4.10-5.10); RED CELL DISTRI WIDTH 16.7 % (0-14.5); WHITE BLOOD COUNT 6.5 10*3/uL (4.8-10.8)
[2019-03-16 10:36] LABS: INTERNATIONAL NORM RATIO 1.1 (2.0-3.5)
[2019-03-16 10:37] LABS: ALBUMIN 3.2 gm/dl (3.1-4.5); CREATININE 1.82 mg/dL (0.55-1.02); POTASSIUM 4.3 mmol/L (3.5-5.1); TOTAL PROTEIN 7.9 gm/dL (6.4-8.2)
[2019-03-16 10:38] LABS: LIPASE 80 U/L (73-393); VALPROIC ACID (DEPAKENE) 60.2 ug/ml (50-100)
[2019-03-16 10:40] LABS: TROPONIN I 0.071 ng/ml (<0.045)
[2019-03-16] MEDS ORDERED: LASIX20 MG PO (14:29)
[2019-03-16] MEDS ORDERED: TYLENOL325 M1 PO (14:37)
[2019-03-16] MEDS ORDERED: B-12 COMPL1000 MCG/1 IJ (14:38)
[2019-03-16] MEDS ORDERED: DEPAKOTE250 MG PO (14:39)
[2019-03-16] MEDS ORDERED: Duragesic 75 M75 MCG TD (14:40)
[2019-03-16] MEDS ORDERED: Ipratropium Brom3 ML INH (14:41)
[2019-03-16] MEDS ORDERED: HUMALOG100 UNIT/1 SQ (14:43)
[2019-03-17] VITALS: BP 99/56
[2019-03-17 08:55] VITALS: BP 110/66
[2019-03-17 12:00] VITALS: BP 110/62
[2019-03-17 16:00] VITALS: BP 124/73
[2019-03-17 20:00] VITALS: BP 109/55
[2019-03-18] VITALS: BP 118/53
[2019-03-18 06:06] LABS: CREATININE 1.72 mg/dL (0.55-1.02); POTASSIUM 4.1 mmol/L (3.5-5.1)
[2019-03-18 06:09] LABS: BASO % 0.4 % (0.0-1.0); EOS # 0.2 10*3/uL (0.0-0.4); HEMATOCRIT 27.4 % (37.0-47.0); HEMOGLOBIN 8.1 g/dl (12.0-16.0); LYMPH # 1.9 10*3/uL (1.3-4.4); MEAN CORPUSCULAR HGB 25.7 pg (27.0-31.0); MEAN CORPUSCULAR HGB CONC 29.6 g/dl (33.0-37.0); MEAN PLATELET VOLUME 11.7 fl (9.6-12.3); MONO # 0.5 10*3/uL (0.1-1.0); MONO % 8.2 % (3.0-9.0); NEUT # 2.9 10*3/uL (2.3-7.9); NEUT % 52.2 % (47.0-73.0); PLATELET COUNT AUTOMATED 227 10*3/uL (130-400); RED BLOOD COUNT 3.15 10*6/uL (4.10-5.10); WHITE BLOOD COUNT 5.5 10*3/uL (4.8-10.8)
[2019-03-18 12:00] VITALS: BP 136/76
[2019-03-18 16:00] VITALS: BP 114/74
[2019-03-18 20:00] VITALS: BP 147/71
[2019-03-19] VITALS: BP 116/74; BP 123/67
[2019-03-19 12:00] VITALS: BP 131/68
[2019-03-19 16:00] VITALS: BP 112/68
[2019-03-20] VITALS: BP 123/67
[2019-03-20 07:28] LABS: ALBUMIN 3.4 gm/dl (3.1-4.5); CREATININE 1.7 mg/dL (0.55-1.02); POTASSIUM 4.9 mmol/L (3.5-5.1); TOTAL PROTEIN 8.2 gm/dL (6.4-8.2)
[2019-03-20 07:37] LABS: BASO % 0.3 % (0.0-1.0); EOS # 0.1 10*3/uL (0.0-0.4); EOS % 0.7 % (1.0-4.0); HEMATOCRIT 27.9 % (37.0-47.0); HEMOGLOBIN 8.4 g/dl (12.0-16.0); LYMPH # 1.4 10*3/uL (1.3-4.4); LYMPH % 13.2 % (27.0-41.0); MEAN CELL VOLUME 86.1 fl (81.0-99.0); MEAN CORPUSCULAR HGB 25.9 pg (27.0-31.0); MEAN CORPUSCULAR HGB CONC 30.1 g/dl (33.0-37.0); MEAN PLATELET VOLUME 12.3 fl (9.6-12.3); MONO # 0.8 10*3/uL (0.1-1.0); MONO % 7.8 % (3.0-9.0); NEUT % 77.6 % (47.0-73.0); PLATELET COUNT AUTOMATED 245 10*3/uL (130-400); RED BLOOD COUNT 3.24 10*6/uL (4.10-5.10); RED CELL DISTRI WIDTH 16.9 % (0-14.5); WHITE BLOOD COUNT 10.3 10*3/uL (4.8-10.8)
[2019-03-20 07:46] VITALS: BP 128/62
[2019-03-20] MEDS ORDERED: LOPRESSOR25 MG PO (08:07)
[2019-03-20] MEDS ORDERED: RISPERIDONE0.5 MG PO (08:07)
[2019-03-20] MEDS ORDERED: FEROSUL325 MG PO (08:07)
[2019-03-20] MEDS ORDERED: ALDACTONE25 MG PO (08:07)
[2019-03-20 12:00] VITALS: BP 122/51
== END 2019-03-20 14:14 | DRG 291 ==
LOC: ED 09:55 → 4E 13:00 → EDHOLD 13:00 → 4E 13:17
PROVIDERS: Emergency Medicine; ADMIT Internal Medicine
DX: I13.0 Hypertensive heart and chronic kidney disease with heart failure and stage 1 through stage 4 chronic kidney disease, or unspecified chronic kidney disease (principal); G93.41 Metabolic encephalopathy; J96.01 Acute respiratory failure with hypoxia; I50.33 Acute on chronic diastolic (congestive) heart failure; I48.21 Permanent atrial fibrillation; N18.4 Chronic kidney disease, stage 4 (severe); E87.2 Acidosis; G30.9 Alzheimer's disease, unspecified; F02.80 Dementia in other diseases classified elsewhere, unspecified severity, without behavioral disturbance, psychotic disturbance, mood disturbance, and anxiety; E11.22 Type 2 diabetes mellitus with diabetic chronic kidney disease; D50.9 Iron deficiency anemia, unspecified; M48.00 Spinal stenosis, site unspecified; G89.29 Other chronic pain; J44.9 Chronic obstructive pulmonary disease, unspecified; E03.9 Hypothyroidism, unspecified; E78.2 Mixed hyperlipidemia; F41.9 Anxiety disorder, unspecified; L40.9 Psoriasis, unspecified; M19.90 Unspecified osteoarthritis, unspecified site; I25.10 Atherosclerotic heart disease of native coronary artery without angina pectoris; E66.9 Obesity, unspecified; Z66 Do not resuscitate; Z96.1 Presence of intraocular lens; Z51.5 Encounter for palliative care; Z53.20 Procedure and treatment not carried out because of patient's decision for unspecified reasons; Z85.038 Personal history of other malignant neoplasm of large intestine; Z90.49 Acquired absence of other specified parts of digestive tract; Z98.49 Cataract extraction status, unspecified eye; Z90.710 Acquired absence of both cervix and uterus; Z87.891 Personal history of nicotine dependence; Z81.1 Family history of alcohol abuse and dependence; Z82.3 Family history of stroke; Z82.49 Family history of ischemic heart disease and other diseases of the circulatory system; Z79.899 Other long term (current) drug therapy; Z79.4 Long term (current) use of insulin; Z79.01 Long term (current) use of anticoagulants; Z68.33 Body mass index [BMI] 33.0-33.9, adult; Z86.73 Personal history of transient ischemic attack (TIA), and cerebral infarction without residual deficits; Z93.3 Colostomy status

== ENCOUNTER 2019-05-07 06:04 | Inpatient (IN) | payer OTHER ==
[~2019-05-07] VITALS: Ht 167.6 cm; Wt 91.2 kg
[~2019-05-07 06:04] MED LIST changes: +ALDACTONE25 MG PO; +B-12 COMPL1000 MCG/1 IJ; +DEPAKOTE250 MG PO; +Duragesic 75 M75 MCG TD; +FEROSUL325 MG PO; +HUMALOG100 UNIT/1 SQ; +Ipratropium Brom3 ML INH; +RISPERIDONE0.5 MG PO; +TYLENOL325 M1 PO
[2019-05-07 06:08] VITALS: BP 128/72
[2019-05-07 07:02] LABS: BACTERIA 4+; BILIRUBIN NEGATIVE (NEGATIVE); BLOOD TRACE-INTACT (NEGATIVE); CLARITY CLOUDY (CLEAR); COLOR YELLOW (YELLOW); EPITHELIAL CELLS 25-30; GLUCOSE NEGATIVE (NEGATIVE); KETONE NEGATIVE (NEGATIVE); LEUKO ESTERASE 2+ (NEGATIVE); NITRITE NEGATIVE (NEGATIVE); SPECIFIC GRAVITY 1.015 (1.005-1.030); UROBILINOGEN 0.2 E.U./dl (0.2-1.0); WBC TNTC wbc/hpf (0-5)
[2019-05-07 07:12] LABS: BASO % 0.4 % (0.0-1.0); EOS # 0.1 10*3/uL (0.0-0.4); EOS % 1.7 % (1.0-4.0); HEMOGLOBIN 9.7 g/dl (12.0-16.0); LYMPH # 1.1 10*3/uL (1.3-4.4); LYMPH % 22.6 % (27.0-41.0); MEAN CELL VOLUME 93.2 fl (81.0-99.0); MEAN CORPUSCULAR HGB 27.4 pg (27.0-31.0); MEAN CORPUSCULAR HGB CONC 29.4 g/dl (33.0-37.0); MEAN PLATELET VOLUME 12.3 fl (9.6-12.3); MONO # 0.2 10*3/uL (0.1-1.0); MONO % 4.7 % (3.0-9.0); NEUT # 3.3 10*3/uL (2.3-7.9); NEUT % 70.2 % (47.0-73.0); PLATELET COUNT AUTOMATED 134 10*3/uL (130-400); RED BLOOD COUNT 3.54 10*6/uL (4.10-5.10); RED CELL DISTRI WIDTH 22.5 % (0-14.5); WHITE BLOOD COUNT 4.7 10*3/uL (4.8-10.8)
[2019-05-07 07:14] VITALS: BP 126/72
[2019-05-07 07:22] LABS: ACT PARTIAL THROMBO TIME 25.6 SECONDS (20.0-32.1)
[2019-05-07 07:27] LABS: ALBUMIN 3.1 gm/dl (3.1-4.5); CREATININE 1.77 mg/dL (0.55-1.02); POTASSIUM 5.1 mmol/L (3.5-5.1)
[2019-05-07 07:29] LABS: TROPONIN I 0.077 ng/ml (<0.045)
[2019-05-07 08:20] VITALS: BP 124/82
[2019-05-07] MEDS ORDERED: NAMENDA10 MG PO (10:34)
[2019-05-07 12:00] VITALS: BP 125/74
[2019-05-07 16:00] VITALS: BP 118/85
[2019-05-07 20:00] VITALS: BP 112/82
[2019-05-08] VITALS: BP 104/80
[2019-05-08 08:00] VITALS: BP 124/80
[2019-05-08 12:00] VITALS: BP 146/88
[2019-05-08 16:00] VITALS: BP 107/70
[2019-05-08 20:00] VITALS: BP 132/55
[2019-05-09] VITALS: BP 115/75
[2019-05-09 08:00] VITALS: BP 114/88
[2019-05-09 12:00] VITALS: BP 127/66
[2019-05-09 16:00] VITALS: BP 122/68
[2019-05-09 20:00] VITALS: BP 122/64
[2019-05-10] VITALS: BP 121/63
[2019-05-10 08:00] VITALS: BP 110/70; BP 136/70
[2019-05-10] MEDS ORDERED: METOPROLOL TART50 M1 PO (10:21)
== END 2019-05-10 14:30 | DRG 637 ==
LOC: ED 06:04 → 4E 08:00 → EDHOLD 08:00 → 4E 08:14
PROVIDERS: Emergency Medicine Emergency Medical Services; ADMIT Internal Medicine
DX: E11.649 Type 2 diabetes mellitus with hypoglycemia without coma (principal); G93.41 Metabolic encephalopathy; I48.21 Permanent atrial fibrillation; F33.0 Major depressive disorder, recurrent, mild; N39.0 Urinary tract infection, site not specified; I13.0 Hypertensive heart and chronic kidney disease with heart failure and stage 1 through stage 4 chronic kidney disease, or unspecified chronic kidney disease; I50.30 Unspecified diastolic (congestive) heart failure; R62.7 Adult failure to thrive; E03.9 Hypothyroidism, unspecified; G30.1 Alzheimer's disease with late onset; F02.80 Dementia in other diseases classified elsewhere, unspecified severity, without behavioral disturbance, psychotic disturbance, mood disturbance, and anxiety; I25.10 Atherosclerotic heart disease of native coronary artery without angina pectoris; N18.3 Chronic kidney disease, stage 3 (moderate); Z66 Do not resuscitate; Z51.5 Encounter for palliative care; F41.9 Anxiety disorder, unspecified; M19.90 Unspecified osteoarthritis, unspecified site; G89.29 Other chronic pain; E11.22 Type 2 diabetes mellitus with diabetic chronic kidney disease; E78.5 Hyperlipidemia, unspecified; E66.9 Obesity, unspecified; I48.0 Paroxysmal atrial fibrillation; L40.9 Psoriasis, unspecified; Z86.73 Personal history of transient ischemic attack (TIA), and cerebral infarction without residual deficits; Z79.4 Long term (current) use of insulin; Z79.01 Long term (current) use of anticoagulants; Z90.49 Acquired absence of other specified parts of digestive tract; Z90.710 Acquired absence of both cervix and uterus; Z82.3 Family history of stroke; Z82.49 Family history of ischemic heart disease and other diseases of the circulatory system; Z81.1 Family history of alcohol abuse and dependence